=== PATIENT | male | born 1965 | race Caucasian/White ===

== ENCOUNTER 2019-01-01 14:53 | Inpatient (IN) | payer MEDICARE ==
[~2019-01-01] VITALS: Ht 167.6 cm; Wt 59.0 kg
--- NOTE | 2019-01-01 14:53 | NUR ---
[facility] S[facility] BY [facility] FOR ELEVATED CREATININE LEVEL, TO ER BED 4, HOOKED TO MONITOR, CHANGED TO [facility], AWAITING MD CALVO
--- NOTE | 2019-01-01 14:57 | NUR ---
DR ARRILOA AT BEDSIDE
[2019-01-01 15:29] LABS: BASOPHILS # (AUTO) 0.1 /CMM (0.0-0.2); BASOPHILS % (AUTO) 0.9 % (0.0-2.0); EOSINOPHILS % (AUTO) 2.7 % (0.0-6.0); HEMATOCRIT 33 % (39-51); HEMOGLOBIN 11.3 g/dL (13.5-17.5); LYMPHOCYTES # (AUTO) 2.1 /CMM (0.8-4.8); LYMPHOCYTES % (AUTO) 14.5 % (20.0-44.0); MEAN CORPUSCULAR HGB CONC 34 g/dl (31.0-36.0); MEAN CORPUSCULAR VOLUME 87 fL (80-96); MONOCYTES # (AUTO) 0.9 /CMM (0.1-1.30); MONOCYTES % (AUTO) 6.2 % (2.0-12.0); NEUTROPHILS # (AUTO) 11.2 /CMM (1.8-8.9); NEUTROPHILS % (AUTO) 75.7 % (43.0-81.0); PLATELET COUNT (AUTO) 497 /CMM (150-450); RED BLOOD CELL COUNT(AUTO) 3.83 MIL/uL (4.5-6.0); WHITE BLOOD COUNT (AUTO) 14.8 K/uL (4.3-11.0)
[2019-01-01] MEDS ORDERED: IV NS 0.9% 1,000 ML BAG IV ONE (15:30)
[2019-01-01 15:38] LABS: CALCIUM, SERUM 8.1 mg/dL (8.5-10.1); CREATININE 5.3 mg/dL (0.6-1.3); POTASSIUM 3.1 mmol/L (3.5-5.1)
[2019-01-01] MEDS ORDERED: ARIP10TA9 PO (15:38)
[2019-01-01] MEDS ORDERED: MAGN400O6 PO (15:38)
[2019-01-01] MEDS ORDERED: VANC1VIA IV (15:38)
[2019-01-01] MEDS ORDERED: CLON0.1T PO (15:38)
[2019-01-01] MEDS ORDERED: INSU100V27 SQ (15:38)
[2019-01-01] MEDS ORDERED: ASCO500T9 PO (15:38)
[2019-01-01] MEDS ORDERED: ONDA4TAB5 PO (15:38)
[2019-01-01] MEDS ORDERED: DIPH25CA6 PO (15:38)
[2019-01-01] MEDS ORDERED: CARV6.252 PO (15:38)
[2019-01-01] MEDS ORDERED: METF-440 PO (15:38)
[2019-01-01] MEDS ORDERED: NA P133E RC (15:38)
[2019-01-01] MEDS ORDERED: NITR0.4T48 SL (15:38)
[2019-01-01] MEDS ORDERED: ZINC220C8 PO (15:38)
[2019-01-01] MEDS ORDERED: ATOR40TA PO (15:38)
[2019-01-01] MEDS ORDERED: ACET-868 PO (15:38)
[2019-01-01] MEDS ORDERED: ASPI-1169 PO (15:38)
[2019-01-01] MEDS ORDERED: MELA3TAB PO (15:38)
[2019-01-01] MEDS ORDERED: PIPE3.377 IV (15:38)
[2019-01-01] MEDS ORDERED: BISA10SU8 RC (15:38)
[2019-01-01] MEDS ORDERED: HYDR-3974 PO (15:38)
[2019-01-01] MEDS ORDERED: CLOP75TA15 PO (15:38)
[2019-01-01] MEDS ORDERED: GLIP5TAB13 PO (15:38)
[2019-01-01 15:44] LABS: ALBUMIN 2.2 g/dL (3.4-5.0); BILIRUBIN,DIRECT 0.1 mg/dL (0.0-0.2); BILIRUBIN,TOTAL 0.5 mg/dL (0.2-1.0); TOTAL PROTEIN, SERUM 6.5 g/dL (6.4-8.2)
[2019-01-01] MEDS ORDERED: IV NS 0.9% 500 ML BAG IV ONE (16:00)
--- NOTE | 2019-01-01 16:00 | NUR ---
URINE SAMPLE SENT TO LAB
[2019-01-01 16:09] LABS: APPEARANCE,URINE Slightly Cloudy (CLEAR); BILIRUBIN,URINE Negative (NEGATIVE); BLOOD, URINE Small Ery/uL (NEGATIVE); COLOR,URINE Light yellow (YELLOW); KETONES,URINE Negative (NEGATIVE); LEUKOCYTE ESTERASE ,URINE Negative (NEGATIVE); NITRITE, URINE Negative (NEGATIVE); PH,URINE 5.5 (5.0-8.0); PROTEIN,URINE 30 mg/dl (NEGATIVE); UGLUCOSE Negative (NEGATIVE); UROBILINOGEN,URINE 0.2 EU/dL (0.2)
--- NOTE | 2019-01-01 16:22 | NUR ---
CALLED [facility], BRENDA KRISHNAN WAS PAGED.
[2019-01-01 16:25] LABS: BACTERIA,URINE Few /HPF (None Seen); SQUAMOUS EPITHELIAL CELL,UR Few /HPF (None Seen); URINE AMORPHOUS URATE Few /HPF (None Seen); WBC,URINE 0-2 /HPF (0-3)
--- NOTE | 2019-01-01 16:31 | NUR ---
CALLED NURSING SUP REQUESTED MED SURG BED FOR THIS PATIENT
--- NOTE | 2019-01-01 17:10 | NUR ---
ADMIT TO 312-1 DX RENAL FAILURE ACCEPTING BRENDA KRISHNAN DNP
--- NOTE | 2019-01-01 17:50 | NUR ---
REPORT GIVEN TO ASHLEE LAKE OF TELE UNIT
[2019-01-01] MEDS ORDERED: ZOLPIDEM TARTRATE 5 MG TABLET PO PRN (19:00)
[2019-01-01] MEDS ORDERED: ONDANSETRON HCL/PF 4 MG/2 ML VIAL IVP PRN (19:00)
[2019-01-01] MEDS ORDERED: Z GUARD REMEDY 2 OZ OINT TP PRN (19:00)
[2019-01-01 20:00] VITALS: BP_SYST 157; BP_SYST 159; BP_DIAS 89; BP_DIAS 97
--- NOTE | 2019-01-01 20:00 | NUR ---
RN Notes Admitted a 53 years old male patient from ER with primary diagnosis of Acute Renal failure. Patient is awake, alert and oriented x3, verbalizing pain on his left shoulder 3/10, per pain pain was due when he fell before. Denies nausea and vomiting. With O2 inhalation at 2LPM via nasal cannula and tolerated well. Right upper arm PICC line patent and intact. Skin assessment done wound care done with pictures taken and filed in the chart. Plan of care and Safety measures discussed with the patient and verbalized understanding. Kept comfortable and attended. Will continue to monitor patient.
[2019-01-01] MEDS ORDERED: FEE PK DOSING 1 MIN EA MC ONE ×2 (20:02)
[2019-01-01] MEDS: IV NS 0.9% 1,000 ML IV PRN (20:47)
[2019-01-01] MEDS ORDERED: PIPERACILLIN /TAZOBACTAM 2.25 G in IV D5W 50 ML IV SCH (21:00)
[2019-01-01] MEDS: ATORVASTATIN 40 MG TABLET PO SCH (21:57)
[2019-01-01] MEDS: HYDROCODONE/APAP 5/325MG 1 EACH TABLET PO PRN (21:58)
--- NOTE | 2019-01-01 21:58 | NUR ---
RN Notes Patient complains of pain on his left shoulder, 05/16. [place] 5/325 mg tab given PO and tolerated well. Will continue to monitor patient.
[2019-01-02] VITALS: BP 142/92
[2019-01-02] MEDS ORDERED: PIPERACILLIN /TAZOBACTAM 3.375 G VIAL IV SCH
[2019-01-02] MEDS: IV NS 0.9% 1,000 ML IV PRN (06:00)
--- NOTE | 2019-01-02 06:46 | NUR ---
RN Notes Patient asleep, on 2 lpm O2 via NC with good saturation. No signs of distress and discomfort noted. Tele monitor reads Sinus Rhythm with BBB. At 0408 NSR converted to Ventricular Rhythm for 1 min then back to NSR. Pain on left shoulder relieved with [place] and denies pain on the surgical incision on the right leg. Kept patient clean and dry. All needs attended with call light within reach. Will endorse to morning RN for continuity of care.
[2019-01-02 06:47] LABS: BASOPHILS # (AUTO) 0.1 /CMM (0.0-0.2); BASOPHILS % (AUTO) 0.5 % (0.0-2.0); HEMATOCRIT 34 % (39-51); HEMOGLOBIN 11.7 g/dL (13.5-17.5); LYMPHOCYTES # (AUTO) 2.3 /CMM (0.8-4.8); LYMPHOCYTES % (AUTO) 9.9 % (20.0-44.0); MEAN CORPUSCULAR HGB CONC 35 g/dl (31.0-36.0); MEAN CORPUSCULAR VOLUME 86 fL (80-96); MONOCYTES # (AUTO) 1.3 /CMM (0.1-1.30); MONOCYTES % (AUTO) 5.6 % (2.0-12.0); NEUTROPHILS # (AUTO) 19.1 /CMM (1.8-8.9); PLATELET COUNT (AUTO) 540 /CMM (150-450); RED BLOOD CELL COUNT(AUTO) 3.92 MIL/uL (4.5-6.0); WHITE BLOOD COUNT (AUTO) 23.2 K/uL (4.3-11.0)
[2019-01-02 06:52] LABS: THYROID STIMULATING HORMONE 1.101 uIU/mL (0.358-3.74)
[2019-01-02 06:58] LABS: ALBUMIN 2.1 g/dL (3.4-5.0); BILIRUBIN,TOTAL 0.7 mg/dL (0.2-1.0); CREATININE 4.8 mg/dL (0.6-1.3); MAGNESIUM 1.7 mg/dL (1.8-2.4); PHOSPHORUS 3.9 mg/dL (2.5-4.9); POTASSIUM 3.7 mmol/L (3.5-5.1); TOTAL PROTEIN, SERUM 6.5 g/dL (6.4-8.2)
[2019-01-02] MEDS: HYDROCODONE/APAP 5/325MG 1 EACH TABLET PO PRN ×3 (07:43→22:34)
--- NOTE | 2019-01-02 07:55 | NUR ---
RN OPENING NOTES Patient received on 2 L o2 nasal cannula, no sob or ventilatory distress noted. Patient received [place] for left shoulder pain, no other complaints otherwise. Patient is comfortable lying in his bed, call light within reach, safety measures in place.
--- NOTE | 2019-01-02 08:00 | NUR ---
RN NOTES BP noted at 181/97, IVF put on hold at this time. PRN BP medications to be administer.
--- NOTE | 2019-01-02 08:00 | NUR ---
WOUND CARE CONSULT WOUND CARE RECEIVED CONSULT FOR SACRAL REDNESS AND RIGHT GREAT TOE WOUND. WOUND CARE WILL DEFER CONSULT AND ALL TREATMENT PLANS TO PLASTIC SURGICAL TEAM INCLUDING DPM WHO HAVE BEEN NOTIFIED OF THIS CONSULT. PATIENT WITH FLORIN AT 15, ALL PRESSURE ULCER PREVENTION MEASURES ARE NOTED TO BE IN PLACE AT THIS TIME. WILL SEE PRN.
[2019-01-02] MEDS: ARIPIPRAZOLE 5 MG TABLET PO SCH (08:14)
[2019-01-02] MEDS: CARVEDILOL 6.25 MG TABLET PO SCH ×2 (08:14→17:00)
[2019-01-02] MEDS: ASPIRIN 81 MG TAB.CHEW PO SCH (08:14)
[2019-01-02] MEDS: CLOPIDOGREL BISULFATE 75 MG TABLET PO SCH (08:14)
[2019-01-02] MEDS: glipiZIDE 5 MG TABLET PO SCH ×2 (08:24→16:59)
[2019-01-02 08:40] VITALS: BP 181/97
[2019-01-02] MEDS ORDERED: VANCOMYCIN 1 GM VIAL IV SCH (09:00)
[2019-01-02] MEDS: CLONIDINE HCL 0.1 MG TABLET PO PRN (09:24)
[2019-01-02] MEDS: NYSTATIN/TRIAMCIN CREAM 15 GM TUBE TP SCH ×2 (11:30→22:34)
--- NOTE | 2019-01-02 12:47 | NUR ---
MSRN.WOUND CARE VERBAL ORDER FROM MD [place] AT BEDSIDE. RIGHT THIGH LISA AND RIGHT CALF LISA: ABDO PADS AND WRAP WITH KERLIX. RIGHT GREAT TOE AND PLATAR ASPECT: CLEAN WITH BETADINE, PROTECT WITH GAUZE AND WRAP WITH KERLIX. DAILY AND PRN FOR SOILING. WOUND CARE COMPLETED PER RX AND ORDER PLACED.
[2019-01-02 15:49] VITALS: BP 165/86
--- NOTE | 2019-01-02 18:53 | NUR ---
RN MS NOTES CLOSING NOTES Patient remains a/o x3, patient with 2 L o2 nasal cannula, no sob or respiratory distress noted. Patient denies pain, patient with PASHA picc line, intact and operational, with IVF per RX. Patient with dressing at RLE, clean, dry and intact. Patient's bed at lowest setting, locked. Hand rails x2, call light within reach. All day nursing duties completed. Will endorse to plant operator/shift supervisor RN at bedside for JOE.
--- NOTE | 2019-01-02 19:37 | NUR ---
msrn. tran arrived on floor, endorsed to night rn to administer.
--- NOTE | 2019-01-02 19:40 | NUR ---
MS/RN NOTES RECEIVED PT. LYING IN BED. PT. IS AWAKE, ALERT AND ORIENTED X3. BREATHING EVEN AND UNLABORED ON 2LPM O2 VIA NC. NO SOB, RESPIRATORY DISTRESS OR COMPLAINTS OF PAIN NOTED AT THIS TIME. PT. WITH PT. WITH RIGHT UPPER ARM PICC PRESENT, PATENT AND INTACT ADMINISTERING TO PT. NS @ 100ML/HR. BED LOCKED AND IN LOWEST POSITION, SIDE RAILS UP X3, BED ALARM ON, CALL LIGHT WITHIN REACH, WILL CONTINUE TO MONITOR.
[2019-01-02] MEDS: LINEZOLID RTU BAG 600 MG in PREMIX 1 EA IV SCH (19:57)
[2019-01-02 20:33] VITALS: BP 137/84
[2019-01-02] MEDS: PIPERACILLIN /TAZOBACTAM 3.375 G in IV D5W 100 ML IV SCH (20:42)
[2019-01-02] MEDS: ATORVASTATIN 40 MG TABLET PO SCH (22:33)
[2019-01-03 06:23] LABS: BASOPHILS # (AUTO) 0.1 /CMM (0.0-0.2); BASOPHILS % (AUTO) 0.7 % (0.0-2.0); EOSINOPHILS % (AUTO) 2.8 % (0.0-6.0); HEMATOCRIT 32 % (39-51); HEMOGLOBIN 10.8 g/dL (13.5-17.5); LYMPHOCYTES # (AUTO) 2.4 /CMM (0.8-4.8); LYMPHOCYTES % (AUTO) 13.3 % (20.0-44.0); MEAN CORPUSCULAR HGB CONC 34 g/dl (31.0-36.0); MEAN CORPUSCULAR VOLUME 86 fL (80-96); MONOCYTES # (AUTO) 1.4 /CMM (0.1-1.30); MONOCYTES % (AUTO) 7.6 % (2.0-12.0); NEUTROPHILS # (AUTO) 13.6 /CMM (1.8-8.9); NEUTROPHILS % (AUTO) 75.6 % (43.0-81.0); PLATELET COUNT (AUTO) 506 /CMM (150-450); RED BLOOD CELL COUNT(AUTO) 3.67 MIL/uL (4.5-6.0)
[2019-01-03 06:38] LABS: CALCIUM, SERUM 8.3 mg/dL (8.5-10.1); MAGNESIUM 1.7 mg/dL (1.8-2.4); PHOSPHORUS 4.2 mg/dL (2.5-4.9); POTASSIUM 3.3 mmol/L (3.5-5.1)
--- NOTE | 2019-01-03 06:49 | NUR ---
MS/RN NOTES PT. IS LYING IN BED RESTING, BREATHING EVEN AND UNLABORED ON 2LPM O2 VIA NC. NO SOB, RESPIRATORY DISTRESS OR COMPLAINTS OF PAIN NOTED AT THIS TIME. PT. WITH PT. WITH RIGHT UPPER ARM PICC PRESENT, PATENT AND INTACT ADMINISTERING TO PT. NS @ 100ML/HR. ALL PT. NEEDS MET. PT. OFFLOADED, TURNED AND REPOSITIONED Q2H AND NEEDED. BED LOCKED AND IN LOWEST POSITION, SIDE RAILS UP X3, BED ALARM ON, CALL LIGHT WITHIN REACH, WILL ENDORSE TO DAYSHIFT NURSE FOR CONTINUITY OF CARE.
[2019-01-03] MEDS: LINEZOLID RTU BAG 600 MG in PREMIX 1 EA IV SCH ×2 (06:59→19:04)
--- NOTE | 2019-01-03 07:40 | NUR ---
M/S RN OPENING NOTES PATIENT ON BED WITH HEAD OF BED ELEVATED, A/O 3 AND ABLE TO MAKE NEEDS KNOWN. RESPIRATION EVEN AND UNLABORED WITH NO ACUTE RESPIRATORY DISTRESS, ON OXYGEN AT 2LPM VIA NASAL CANNULA AND TOLERATED WELL. ABD SOFT AND NON DISTENDED WITH ACTIVE BOWEL SOUNDS. COMPLAIN OF PAIN WITH PAIN SCALE OF 5/10 AT LEFT SHOULDER WITH SWELLING NOTED. SKIN WARM TO TOUCH. IV LINE AT RIGHT UPPER ARM PICC LINE WITH NS RUNNING 100 ML/HR. ALL CONCERNS NOTED. PLACED CALL LIGHT WITHIN REACH TO ENSURE SAFETY. WILL CONTINUE TO EVALUATE CARE.
[2019-01-03 08:00] VITALS: BP 163/92
[2019-01-03] MEDS: CARVEDILOL 6.25 MG TABLET PO SCH ×2 (08:16→16:59)
[2019-01-03] MEDS: CLOPIDOGREL BISULFATE 75 MG TABLET PO SCH (08:17)
[2019-01-03] MEDS: ARIPIPRAZOLE 5 MG TABLET PO SCH (08:17)
[2019-01-03] MEDS: PIPERACILLIN /TAZOBACTAM 3.375 G in IV D5W 100 ML IV SCH ×2 (08:17→18:53)
[2019-01-03] MEDS: glipiZIDE 5 MG TABLET PO SCH ×2 (08:17→16:59)
[2019-01-03] MEDS: HYDROCODONE/APAP 5/325MG 1 EACH TABLET PO PRN ×2 (08:17→17:00)
[2019-01-03] MEDS: ASPIRIN 81 MG TAB.CHEW PO SCH (08:17)
[2019-01-03] MEDS ORDERED: VANCOMYCIN 1 GM in IV D5W 250 ML IV SCH (09:00)
[2019-01-03] MEDS: NYSTATIN/TRIAMCIN CREAM 15 GM TUBE TP SCH (11:36)
--- NOTE | 2019-01-03 13:20 | NUR ---
M/S RN RECEIVED AN ORDER FROM DR. JANNETH SINHA FOR MAGNESIUM (1.7) AND POTASSIUM (3.3) REPLACEMENT ONE TIME ONLY. ORDER READ BACK AND VERIFIED, NOTED AND CARRIED OUT. PATIENT NOTIFIED.
[2019-01-03] MEDS ORDERED: Magnesium 1GM/D5W 100ML PREMIX PIGGYBACK IV ONE (13:30)
[2019-01-03] MEDS ORDERED: POTASSIUM CHLORIDE 20 MEQ TAB.PRT.SR PO ONE (13:30)
[2019-01-03] MEDS ORDERED: MGSO4/D5W 100 ML IV ONE (13:30)
[2019-01-03] MEDS: IV NS 0.9% 1,000 ML IV PRN (13:51)
[2019-01-03 16:00] VITALS: BP 171/82
[2019-01-03] MEDS ORDERED: FUROSEMIDE 20 MG/2 ML VIAL IV STA (17:42)
--- NOTE | 2019-01-03 17:45 | NUR ---
MS/RN NOTE PATIENT COMPLAINS OF FEELING ANXIOUS. VITALS STABLE AND SATURATION AT 93% WITH RECEVING OXYGEN AT 3L/MIN VIA NASAL CANNUAL. DR KRISHNAN IS MADE AWARE AND NOTED RECEIVED ORDER OF ATIVAN 0.5 MG IV Q6HR PRN. WENT BACK TO THE PATIENT FOR CLOSER MONITORING AND NOTED PATIENT GETTING MORE ANXIOUS. AND SATURATION AT 90% WITH OXYGEN AT 3L/MIN VIA NASAL CANNULA. ASSESSED AND NOTED PATIENT DESATURATING AT 82% IN ROOM AIR AND PATIENT HAD BILATERAL ANTERIOR CRACKLES IN THE LUNGS. DR KRISHNAN WAS MADE AWARE AND NEW ORDER WERE RECEIVED. THE ORDER WERE READ BACK, VERIFIED. NOTED AND CARRIED OUT. WILL CONTINUE TO MONITOR THE PATIENT CLOSELY.
[2019-01-03] MEDS ORDERED: LORAZEPAM INJ 2 MG/ML VIAL IV PRN (18:00)
--- NOTE | 2019-01-03 18:43 | NUR ---
M/S RN CLOSING NOTES PATIENT A/O X4 AND ABLE TO MAKE NEEDS KNOWN. RESPIRATION EVEN AND UNLABORED , ON CONTINUOUS OXYGEN AT 4LPM VIA NASAL CANNULA AND ABLE TO TOLERATE WELL. ABDOMEN SOFT AND NON DISTENDED WITH ACTIVE BOWEL SOUNDS. PRESENCE OF CONDOM CATHETER WITH UO 200 ML. PATIENT DENIES PAIN AND DISCOMFORT AT THIS TIME. NORCO EFFECTIVE LAST DOSE GIVEN AT 1700. SKIN WARM TO TOUCH. IV SITE ON RIGHT UPPER ARM PICC LINE WITH S/SX OF INFILTRATION, HELD IV FLUID PER MD ORDER. ALL CONCERNS ATTENDED. PLACED CALL LIGHT WITHIN REACH FOR SAFETY. ENDORSED PATIENT CONDITION TO NEXT SHIFT.
--- NOTE | 2019-01-03 19:09 | NUR ---
M/S RN DR. BRENDA PATRICIA NOTIFIED WITH CHEST XRAY RESULT WITH NO GIVEN ORDER. WILL CONTINUE TO EVALUATE CARE.
[2019-01-03 20:00] VITALS: BP 127/68
--- NOTE | 2019-01-03 20:00 | NUR ---
MS RN NOTES RECEIVED PATIENT AWAKE IN BED WITH NO DISTRESS NOTED. CALL LIGHT WITHIN REACH. NO C/O PAIN OR DISCOMFORT. CENTRAL LINE INTACT AND PATENT. BED IN LOW LOCK SETTING. ROOM FREE OF CLUTTER AND BELONGINGS KEPT NEAR BEDSIDE. WILL CONTINUE TO MONITOR.
[2019-01-03] MEDS: ATORVASTATIN 40 MG TABLET PO SCH (22:06)
[2019-01-04] MEDS: NYSTATIN/TRIAMCIN CREAM 15 GM TUBE TP SCH ×3 (00:35→23:37)
[2019-01-04] MEDS: HYDROCODONE/APAP 5/325MG 1 EACH TABLET PO PRN ×4 (04:11→20:56)
[2019-01-04] MEDS: LINEZOLID RTU BAG 600 MG in PREMIX 1 EA IV SCH ×2 (05:42→17:34)
[2019-01-04 06:24] LABS: BASOPHILS # (AUTO) 0.1 /CMM (0.0-0.2); BASOPHILS % (AUTO) 0.5 % (0.0-2.0); EOSINOPHILS % (AUTO) 1.9 % (0.0-6.0); HEMATOCRIT 28 % (39-51); HEMOGLOBIN 9.6 g/dL (13.5-17.5); LYMPHOCYTES # (AUTO) 1.7 /CMM (0.8-4.8); LYMPHOCYTES % (AUTO) 10.9 % (20.0-44.0); MEAN CORPUSCULAR HGB CONC 34 g/dl (31.0-36.0); MEAN CORPUSCULAR VOLUME 86 fL (80-96); MONOCYTES # (AUTO) 1.3 /CMM (0.1-1.30); NEUTROPHILS # (AUTO) 12.5 /CMM (1.8-8.9); NEUTROPHILS % (AUTO) 78.7 % (43.0-81.0); PLATELET COUNT (AUTO) 430 /CMM (150-450); RED BLOOD CELL COUNT(AUTO) 3.29 MIL/uL (4.5-6.0); WHITE BLOOD COUNT (AUTO) 15.9 K/uL (4.3-11.0)
[2019-01-04 06:32] LABS: CALCIUM, SERUM 8.2 mg/dL (8.5-10.1); CREATININE 5.3 mg/dL (0.6-1.3); PHOSPHORUS 3.8 mg/dL (2.5-4.9)
--- NOTE | 2019-01-04 06:46 | NUR ---
MS RN NOTES PATIENT AWAKE IN BED WITH NO DISTRESS NOTED. CALL LIGHT WITHIN REACH. ALL DUE MEDS GIVEN ORDERED WITH NO ASE NOTED. NO C/O PAIN OR DISCOMFORT. CENTRAL LINE INTACT AND PATENT. CONDOM CATH INTACT, PATENT, AND DRAINED 300ML YELLOW CLEAR URINE PLUS X1 IN DIAPER D/T ACCIDENTALLY PULLED OUT BY PATIENT. CONDOM CATH REPLACED AND TOLERATED WELL. WOUND TREATMENT RENDERED AND TOLERATED WELL. NO ACTIVE BLEEDING NOTED. RIGHT FOOT WOUND CULTURE OBTAINED PER ORDER. BED ALARM ON AND FUNCTIONING PROPERLY. ROOM FREE OF CLUTTER AND BELONGINGS KEPT NEAR BEDSIDE. BED IN LOW LOCK SETTING. WILL ENDORSE TO ONCOMING SHIFT.
[2019-01-04 08:00] VITALS: BP_SYST 112; BP_DIAS 47; BP_DIAS 50
--- NOTE | 2019-01-04 08:00 | NUR ---
RN NOTES RECEIVED PATIENT IN THE BED AWAKE A/O X3 . PER PATIENT HEARING VOICES, BUT TELLING RANDOM THINGS. PATIENT DENIED SI/HI AT THIS TIME. MEDICATION ADMINISTERED PRESCRIBED, V/S STABLE. PATIENT ON O2-3.5 L, NO ACUTE RESPIRATORY DISTRESS, PATIENT HAS A CONDOM CATH, MONITORING INTAKE AND OUTPUT. PATIENT WAS COMPLAINING OF RIGHT SHOULDER PAIN, IV ACCESS ON RIGHT UPPER ARM INTACT, INFUSING ZOSYN 25 ML/HR INTACT. ASSIST PATIENT TURN AND REPOSTION Q 2 HR, KEEP HOB ELEVATED 35 DEGREE ALL THE TIME. CALL LIGHT WITHIN TO REACH, SAFETY PRECAUTION MAINTAINED ALL THE TIME.
[2019-01-04] MEDS: PIPERACILLIN /TAZOBACTAM 3.375 G in IV D5W 100 ML IV SCH ×2 (09:19→20:05)
[2019-01-04] MEDS: ARIPIPRAZOLE 5 MG TABLET PO SCH (09:20)
[2019-01-04] MEDS: CLOPIDOGREL BISULFATE 75 MG TABLET PO SCH (09:20)
--- NOTE | 2019-01-04 09:21 | NUR ---
RN NOTES ADMINISTERED NARCO 5/325 MG PO PRN FOR LEFT SHOULDER PAIN 04/15 PER PATIENT REQUEST, BP-112/50, P-83, CONTINUED MONITORING.
[2019-01-04] MEDS: CARVEDILOL 6.25 MG TABLET PO SCH ×2 (09:24→17:34)
[2019-01-04] MEDS: ASPIRIN 81 MG TAB.CHEW PO SCH (09:24)
[2019-01-04] MEDS: glipiZIDE 5 MG TABLET PO SCH ×2 (09:24→17:34)
[2019-01-04] MEDS: ALBUTEROL HALF STRENGTH 1.25 MG/3 ML VIAL.NEB NEB SCH ×3 (11:00→20:29)
[2019-01-04] MEDS: IPRATROPIUM NEB FS 0.5 MG/2.5 ML AMPUL.NEB NEB SCH ×3 (11:00→20:29)
[2019-01-04 12:09] LABS: ABG BASE EXCESS -3.9 mmol/L; ABG OXYGEN SATURATION 93.8 % (92.0-98.5); ABG PCO2 31.3 mmHg (35.0-45.0); ABG PH 7.419 (7.350-7.450); ABG PO2 75.6 mmHg (75.0-100.0); AaDO2 173.6 mmHg; COHb 0.3 % (0.5-1.5); MetHb 0.6 % (0.0-1.5); SITE, ABG Right Radial; VENT MODE, BG 5L NC
[2019-01-04] MEDS: POTASSIUM CL. PREMIX PERIPHER. 50 ML IV SCH ×2 (12:58→13:59)
--- NOTE | 2019-01-04 13:21 | NUR ---
RN NOTES PATIENT SIGN CONSENT FORM FOR DEBRIDEMENT ON RIGHT FOOT, AND POSSIBLE AMPUTATION, PER FOOT MD DAWKINS.
--- NOTE | 2019-01-04 14:06 | NUR ---
RN NOTES ADMINISTERED NARCO 5/325 MG PO PRN FOR GENERALIZED PAIN PER PATIENT REQUEST, V/S TAKEN BP 110/49, P-80, CONTINUED MONITORING.
[2019-01-04 16:00] VITALS: BP 137/86
--- NOTE | 2019-01-04 18:30 | NUR ---
RN NOTES PATIENT STABLE, ASSIST EATING, ADMINISTERED SCHEDULED MEDICATION, V/S STABLE. PATIENT ON O2-4.OL, NO ACUTE RESPIRATORY DISTRESS, KEEPING HOB 35 DEGREE ALL THE TIME, PATIENT REFUSED PAIN AT THIS TIME. CONDOM CATH INTACT. ASSIST TURN AND REPOSTION Q 2 HR, CALL LIGHT WITHIN TO REACH, SAFETY PRECAUTION MAINTAINED ALL THE TIME. ENDORSED ONCOMING NURSE FOR PLAN OF CARE.
--- NOTE | 2019-01-04 19:00 | NUR ---
MS RN OPENING NOTES Received patient awake on Clay's position on bed, with O2 inhalation via NC @ 2LPM saturating 96%. No SOB/respiratory distress noted. With family at bedside. Answered all inquiries with satisfaction. Kept bed low and locked, siderails up. Reinforced to family the importance of elevating HOB in relation to patient's breathing. Call light at bedside. Will continue to monitor accordingly.
[2019-01-04 20:00] VITALS: BP 152/89
[2019-01-04] MEDS: ATORVASTATIN 40 MG TABLET PO SCH (21:07)
--- NOTE | 2019-01-05 | NUR ---
MS RN NOTES Kept patient on NPO. Instructed at bedside to give no food or water in preparation for procedure this AM, patient and verbalized understanding.
[2019-01-05] MEDS: HYDROCODONE/APAP 5/325MG 1 EACH TABLET PO PRN ×2 (01:25→16:14)
[2019-01-05] MEDS: IPRATROPIUM NEB FS 0.5 MG/2.5 ML AMPUL.NEB NEB SCH ×4 (02:01→19:53)
[2019-01-05] MEDS: ALBUTEROL HALF STRENGTH 1.25 MG/3 ML VIAL.NEB NEB SCH ×4 (02:01→19:53)
[2019-01-05] MEDS: LINEZOLID RTU BAG 600 MG in PREMIX 1 EA IV SCH ×2 (05:18→18:35)
[2019-01-05] MEDS ORDERED: FENTANYL PF 100MCG/2ML AMPUL ONE (06:43)
[2019-01-05] MEDS ORDERED: MIDAZOLAM HCL 2 MG/2ML VIAL ONE (06:43)
[2019-01-05] MEDS ORDERED: METOCLOPRAMIDE HCL 10 MG/2 ML VIAL ONE (06:44)
[2019-01-05] MEDS ORDERED: ROCURONIUM BROMIDE 50 MG/5 ML ONE (06:44)
[2019-01-05] MEDS ORDERED: ANESTHESIA TRAY IN PYXIS 1 EA TRAY MC ONE (06:52)
[2019-01-05 07:04] LABS: CALCIUM, SERUM 8.2 mg/dL (8.5-10.1); CREATININE 5.4 mg/dL (0.6-1.3); PHOSPHORUS 4.4 mg/dL (2.5-4.9); POTASSIUM 3.1 mmol/L (3.5-5.1)
[2019-01-05] MEDS ORDERED: LIDOCAINE HCL/PF 1% 30 ML SDV ONE (07:04)
[2019-01-05] MEDS ORDERED: BUPIVACAINE MPF 0.5% W/EPI INJ 30 ML VIAL ONE (07:04)
[2019-01-05] MEDS ORDERED: BUPIVACAINE 0.5 % PF 150 MG/30 ML VIAL ONE (07:04)
--- NOTE | 2019-01-05 07:06 | NUR ---
MS RN CLOSING NOTES Patient awake at this time, on O2 inhalation via NC. No SOB/respiratory distress noted. With at bedside. No new complaints made. All due meds given as ordered. Picked up by OR staff by bed for procedure at this time. Patient noted comfortably on bed. Report given to the next shift.
[2019-01-05 07:10] LABS: BASOPHILS # (AUTO) 0.1 /CMM (0.0-0.2); BASOPHILS % (AUTO) 0.6 % (0.0-2.0); EOSINOPHILS % (AUTO) 4.3 % (0.0-6.0); HEMATOCRIT 26 % (39-51); LYMPHOCYTES # (AUTO) 2.3 /CMM (0.8-4.8); LYMPHOCYTES % (AUTO) 17.5 % (20.0-44.0); MEAN CORPUSCULAR HGB CONC 35 g/dl (31.0-36.0); MEAN CORPUSCULAR VOLUME 85 fL (80-96); MONOCYTES # (AUTO) 1.1 /CMM (0.1-1.30); MONOCYTES % (AUTO) 8.6 % (2.0-12.0); NEUTROPHILS # (AUTO) 9.1 /CMM (1.8-8.9); PLATELET COUNT (AUTO) 375 /CMM (150-450); RED BLOOD CELL COUNT(AUTO) 3.04 MIL/uL (4.5-6.0); WHITE BLOOD COUNT (AUTO) 13.2 K/uL (4.3-11.0)
--- NOTE | 2019-01-05 07:19 | NUR ---
PT WENT TO SURGERY, NOT IN ROOM. RN IS AWARE.
[2019-01-05 08:25] VITALS: BP 154/90
[2019-01-05 08:30] VITALS: BP 154/90
--- NOTE | 2019-01-05 08:30 | NUR ---
RN NOTES PATIENT BACK FROM SURGERY BECAUSE OF DESATURATION, AND ELEVATED BP, PER Dr HITCHCOCK STOP SURGERY. PATIENT ON O2-4.0 L NC, SEED BY Dr MARCANO, AND DR CRUZ, AND BRENDA KRISHNAN. STARTED BUMEX IV INFUSION ON 10ML/HR INTACT ON RIGHT UA PICC LINE. NEEDS ATTENDED AND ANTICIPATED, SCHEDULED MEDICATION ADMINISTERED. PATIENT EATING WITH ASSIST OF . CALL LIGHT WITHIN TO REACH, NEEDS ATTENDED AND ANTICIPATED, CONTINUED MONITORING.
[2019-01-05] MEDS: CLOPIDOGREL BISULFATE 75 MG TABLET PO SCH (09:06)
[2019-01-05] MEDS: ASPIRIN 81 MG TAB.CHEW PO SCH (09:07)
[2019-01-05] MEDS: glipiZIDE 5 MG TABLET PO SCH (09:07)
[2019-01-05] MEDS: ARIPIPRAZOLE 5 MG TABLET PO SCH (09:07)
[2019-01-05] MEDS: CARVEDILOL 6.25 MG TABLET PO SCH ×2 (09:07→16:15)
[2019-01-05] MEDS: PIPERACILLIN /TAZOBACTAM 3.375 G in IV D5W 100 ML IV SCH ×2 (09:12→19:51)
[2019-01-05] MEDS ORDERED: BUMETANIDE INJ 6 MG in IV NS 0.9% 36 ML IV ONE (10:30)
--- NOTE | 2019-01-05 12:00 | NUR ---
RN NOTES PATIENT IN THE BED REFUSED PAIN AT THIS TIME, SCHEDULED MEDICATION ADMINISTERED, CONTINUED MONITORING.
[2019-01-05] MEDS: NYSTATIN/TRIAMCIN CREAM 15 GM TUBE TP SCH (12:12)
[2019-01-05] MEDS ORDERED: DEXTROSE 50%-WATER 50 ML DISP.SYRIN IV PRN (13:30)
[2019-01-05] MEDS ORDERED: POTASSIUM CHLORIDE 20 MEQ TAB.PRT.SR PO ONE ×2 (14:00→16:30)
[2019-01-05 16:01] VITALS: BP 165/92
--- NOTE | 2019-01-05 16:14 | NUR ---
RN NOTES ADMINISTERED NARCO 5/325 MG PO PRN FOR GENERALIZED PAIN 03/16 AT THIS TIME PER PATIENT REQUEST. ALSO PUT FERNANDEZ CATH ON SIZE 16 INTACT. SCHEDULED MEDICATION ADMINISTERED, V/S TAKEN AND MONITORING. BS-183 MG/DL. CALL LIGHT WITHIN TO REACH. ALWAYS KEEP HOB ELEVATED 35 DEGREE FOR SOB, CALL LIGHT WITHIN TO REACH. FAMILY NEXT TO THE BED. CONTINUED MONITORING.
[2019-01-05] MEDS: BLOOD SUGAR DIAGNOSTIC 1 EACH STRIP VI SCH ×2 (16:15→21:14)
--- NOTE | 2019-01-05 18:30 | NUR ---
RN NOTES BS-183 MG/DL COVERAGE GIVEN, ALSO ADMINISTERED SCHEDULED MEDICATION, V/S STABLE, MEDICATION WERE ADMINISTERED FOR PAIN EFFECTIVE, F/C DRAIN LIGHT YELLOW OUTPUT. CALL LIGHT WITHIN TO REACH. INFUSING LINEZOLID 150ML/HR INTACT. ENDORSED ONCOMING NURSE FOR PLAN 0F CARE.
[2019-01-05] MEDS: INSULIN REGULAR, HUMAN 100 UNIT/ML 3 ML VIAL SQ PRN (18:36)
--- NOTE | 2019-01-05 19:37 | NUR ---
MS RN NOTE RECEIVED PT IN STABLE CONDITION. A&O X3. PT IS ON O2 4LPM VIA NC, TOLERATING WELL. FERNANDEZ CATH PATENT AND INTACT WITH ADEQUATE URINE DRAINING. PASHA PICC LINE PATENT. NO SIGNS OF SOB OR DISTRESS NOTED. ALL CURRENT NEEDS ATTENDED TO. SAFETY PRECAUTIONS IN PLACE: BED LOW, LOCKED, UPPER RAILS UP, AND CALL LIGHT WITHIN REACH. WILL CONT TO MONITOR.
[2019-01-05 20:00] VITALS: BP_SYST 141; BP_DIAS 81; BP_DIAS 84
[2019-01-05] MEDS: ATORVASTATIN 40 MG TABLET PO SCH (21:14)
[2019-01-05] MEDS: INSULIN GLARGINE, 100 UNIT/ML CARTRIDGE SQ SCH (21:22)
[2019-01-05] MEDS: *INSULIN REGULAR(HUMULIN R)HUM 100 UNIT/ML VIAL SQ PRN (21:23)
[2019-01-06] MEDS: NYSTATIN/TRIAMCIN CREAM 15 GM TUBE TP SCH ×2 (00:37→11:53)
[2019-01-06] MEDS: HYDROCODONE/APAP 5/325MG 1 EACH TABLET PO PRN ×4 (01:12→21:36)
--- NOTE | 2019-01-06 01:12 | NUR ---
MS RN NOTE PRN NORCO 5-325MG GIVEN FOR PAIN 8/10 LOCATED ON THE R HIP AREA STATED BY PT. WILL CONT TO MONITOR.
[2019-01-06] MEDS: ALBUTEROL HALF STRENGTH 1.25 MG/3 ML VIAL.NEB NEB SCH ×4 (01:31→19:59)
[2019-01-06] MEDS: IPRATROPIUM NEB FS 0.5 MG/2.5 ML AMPUL.NEB NEB SCH ×4 (01:31→19:59)
--- NOTE | 2019-01-06 02:12 | NUR ---
MS RN NOTE PAIN REASSESSED. PT IS EASILY AROUSED, WITH VERBALIZATION OF PAIN SUBSIDED TO 0/10. WILL CONT TO MONITOR.
[2019-01-06] MEDS: LINEZOLID RTU BAG 600 MG in PREMIX 1 EA IV SCH ×2 (05:00→17:52)
[2019-01-06 06:28] LABS: BASOPHILS # (AUTO) 0.1 /CMM (0.0-0.2); BASOPHILS % (AUTO) 0.4 % (0.0-2.0); HEMATOCRIT 29 % (39-51); HEMOGLOBIN 9.9 g/dL (13.5-17.5); LYMPHOCYTES # (AUTO) 2.1 /CMM (0.8-4.8); LYMPHOCYTES % (AUTO) 16.7 % (20.0-44.0); MEAN CORPUSCULAR HGB CONC 34 g/dl (31.0-36.0); MEAN CORPUSCULAR VOLUME 87 fL (80-96); NEUTROPHILS # (AUTO) 8.7 /CMM (1.8-8.9); NEUTROPHILS % (AUTO) 69.9 % (43.0-81.0); PLATELET COUNT (AUTO) 421 /CMM (150-450); RED BLOOD CELL COUNT(AUTO) 3.38 MIL/uL (4.5-6.0); WHITE BLOOD COUNT (AUTO) 12.4 K/uL (4.3-11.0)
[2019-01-06] MEDS: INSULIN REGULAR, HUMAN 100 UNIT/ML 3 ML VIAL SQ PRN ×3 (06:31→21:26)
[2019-01-06] MEDS: BLOOD SUGAR DIAGNOSTIC 1 EACH STRIP VI SCH ×4 (06:33→21:14)
[2019-01-06 06:42] LABS: CALCIUM, SERUM 8.7 mg/dL (8.5-10.1); CREATININE 6.2 mg/dL (0.6-1.3); PHOSPHORUS 4.6 mg/dL (2.5-4.9); POTASSIUM 3.8 mmol/L (3.5-5.1)
--- NOTE | 2019-01-06 06:46 | NUR ---
MS RN NOTE PT IN STABLE CONDITION. A&O X3. PT IS ON O2 4LPM VIA NC, TOLERATING WELL. FERNANDEZ CATH PATENT AND INTACT WITH ADEQUATE URINE DRAINING. PASHA PICC LINE PATENT. NO SIGNS OF SOB OR DISTRESS NOTED. ALL CURRENT NEEDS ATTENDED TO. SAFETY PRECAUTIONS IN PLACE: BED LOW, LOCKED, UPPER RAILS UP, AND CALL LIGHT WITHIN REACH. WILL CONT TO MONITOR AND ENDORSE TO NEXT SHIFT FOR JOE.
[2019-01-06 08:00] VITALS: BP 162/80
--- NOTE | 2019-01-06 08:00 | NUR ---
MS RN NOTE RECEIVED PT IN STABLE CONDITION. A&O X3. PT IS ON O2 4LPM VIA NC, TOLERATING WELL. O2 SAT 97%FERNANDEZ CATH PATENT AND INTACT WITH ADEQUATE YELLOW URINE DRAINING. PASHA PICC LINE PATENT. NO SIGNS OF SOB OR DISTRESS NOTED.NEEDS ATTENDED TO. SAFETY PRECAUTIONS IN PLACE: BED LOW, LOCKED, UPPER RAILS UP, AND CALL LIGHT WITHIN REACH. WILL CONT TO MONITOR.
[2019-01-06] MEDS: PIPERACILLIN /TAZOBACTAM 3.375 G in IV D5W 100 ML IV SCH ×2 (09:15→19:44)
[2019-01-06] MEDS: CARVEDILOL 6.25 MG TABLET PO SCH ×2 (09:16→17:37)
[2019-01-06] MEDS: ARIPIPRAZOLE 5 MG TABLET PO SCH (09:16)
[2019-01-06] MEDS: CLOPIDOGREL BISULFATE 75 MG TABLET PO SCH (09:16)
[2019-01-06] MEDS: ASPIRIN 81 MG TAB.CHEW PO SCH (09:16)
[2019-01-06] MEDS: CLONIDINE HCL 0.1 MG TABLET PO PRN (10:38)
--- NOTE | 2019-01-06 13:50 | NUR ---
EVE met with PROGRAM COUNSELOR Sita who informed SW that pt. and family are requesting an Advance Directive. Pt. is Lebanese speaking. SW attempted to meet with the pt. however, pt. was having an HD catheter placed. EVE gave Advance Directive form in Lebanese to pt's RN Fabi and informed her to give it to the pt. or pt's family when they are here at [facility].
--- NOTE | 2019-01-06 14:00 | NUR ---
DR KRISHNAN PLACED HD CATH IN PT'S LT GROIN TODAY-CONSENT HAS BEEN SIGNED.PT TOLERATED WELL.DENIES ANY DISCOMFORT.
[2019-01-06 16:00] VITALS: BP 148/86
--- NOTE | 2019-01-06 18:42 | NUR ---
GAVE ADVANCE DIRECTIVE COPY TO THE FAMILY.PT RESTING IN BED LISTENING TO PERUVIAN MUSIC.DENIES ANY PAIN OR DISTRESS.CALL LIGHT PLACED WITHIN REACH.
--- NOTE | 2019-01-06 19:15 | NUR ---
MS RN OPENING NOTES Received patient A/O x3, on Clay's position on bed with O2 inhalation @ 2LPM, saturating well @ 98%. With indwelling catheter, patent with clear yellow urine output noted. With IVF infusing well as ordered. Kept bed low and locked. Kept HOB elevated at least 35 degree at all times. Call light within easy reach. Will continue to monitor accordingly.
[2019-01-06 20:00] VITALS: BP 163/88
[2019-01-06 20:23] VITALS: BP 163/88
[2019-01-06] MEDS: ATORVASTATIN 40 MG TABLET PO SCH (21:14)
[2019-01-06] MEDS: INSULIN GLARGINE, 100 UNIT/ML CARTRIDGE SQ SCH (21:24)
[2019-01-07] MEDS: NYSTATIN/TRIAMCIN CREAM 15 GM TUBE TP SCH ×3 (00:20→23:52)
[2019-01-07] MEDS: IPRATROPIUM NEB FS 0.5 MG/2.5 ML AMPUL.NEB NEB SCH ×4 (01:58→19:58)
[2019-01-07] MEDS: ALBUTEROL HALF STRENGTH 1.25 MG/3 ML VIAL.NEB NEB SCH ×4 (01:58→19:58)
--- NOTE | 2019-01-07 03:00 | NUR ---
MS RN NOTES Per patient request, brother is okay to visit at this time due to the visitor's work and travel condition.
[2019-01-07] MEDS: HYDROCODONE/APAP 5/325MG 1 EACH TABLET PO PRN ×3 (04:13→21:43)
[2019-01-07] MEDS: LINEZOLID RTU BAG 600 MG in PREMIX 1 EA IV SCH ×2 (05:41→18:26)
--- NOTE | 2019-01-07 06:27 | NUR ---
MS RN CLOSING NOTES Patient noted pinkish urine via indwelling catheter. Noted black/bloody scanty stool x2. With episodes of desaturation 87% the lowest, managed with breathing treatment and reposition to High Clay's position with O2 inhalation @ 2LPM as ordered. Medicated for pain as ordered. Turned and repositioned Q2H, with decreased redness on sacrum noted. Kept bed low and locked, call light within easy reach. Advanced directives not yet returned by the family. Endorsed to the next shift.
[2019-01-07] MEDS: BLOOD SUGAR DIAGNOSTIC 1 EACH STRIP VI SCH ×4 (06:41→21:42)
[2019-01-07 06:45] LABS: CALCIUM, SERUM 8.4 mg/dL (8.5-10.1); CREATININE 6.5 mg/dL (0.6-1.3); PHOSPHORUS 5.3 mg/dL (2.5-4.9); POTASSIUM 3.2 mmol/L (3.5-5.1)
[2019-01-07 06:59] LABS: BASOPHILS # (AUTO) 0.1 /CMM (0.0-0.2); BASOPHILS % (AUTO) 0.8 % (0.0-2.0); EOSINOPHILS % (AUTO) 4.8 % (0.0-6.0); HEMATOCRIT 29 % (39-51); HEMOGLOBIN 9.8 g/dL (13.5-17.5); LYMPHOCYTES # (AUTO) 1.7 /CMM (0.8-4.8); LYMPHOCYTES % (AUTO) 13.3 % (20.0-44.0); MEAN CORPUSCULAR HGB CONC 35 g/dl (31.0-36.0); MEAN CORPUSCULAR VOLUME 88 fL (80-96); MONOCYTES # (AUTO) 0.8 /CMM (0.1-1.30); MONOCYTES % (AUTO) 6.5 % (2.0-12.0); NEUTROPHILS # (AUTO) 9.3 /CMM (1.8-8.9); NEUTROPHILS % (AUTO) 74.6 % (43.0-81.0); PLATELET COUNT (AUTO) 390 /CMM (150-450); RED BLOOD CELL COUNT(AUTO) 3.26 MIL/uL (4.5-6.0); WHITE BLOOD COUNT (AUTO) 12.5 K/uL (4.3-11.0)
--- NOTE | 2019-01-07 07:30 | NUR ---
RECEIVED PT. IN AM ALERT AND ORIENTED X3.LIFE SKILLS TEACHER KAYLI PEREZ
[2019-01-07 08:00] VITALS: BP 149/86
[2019-01-07] MEDS: PIPERACILLIN /TAZOBACTAM 3.375 G in IV D5W 100 ML IV SCH (08:33)
[2019-01-07] MEDS: POTASSIUM CHLORIDE 20 MEQ TAB.PRT.SR PO SCH ×2 (10:21→12:02)
[2019-01-07] MEDS: ASPIRIN 81 MG TAB.CHEW PO SCH (10:21)
[2019-01-07] MEDS: ARIPIPRAZOLE 5 MG TABLET PO SCH (10:21)
[2019-01-07] MEDS: CLOPIDOGREL BISULFATE 75 MG TABLET PO SCH (10:22)
[2019-01-07] MEDS: CARVEDILOL 6.25 MG TABLET PO SCH ×2 (12:01→18:25)
[2019-01-07] MEDS ORDERED: CEFEPIME 2 GM in IV NS 0.9% 50 ML IV SCH (13:00)
--- NOTE | 2019-01-07 13:23 | NUR ---
lunch time insulin held-ate 50% of lunch.
[2019-01-07] MEDS: PIPERACILLIN /TAZOBACTAM 2.25 G in IV D5W 50 ML IV SCH ×2 (14:38→21:04)
--- NOTE | 2019-01-07 15:00 | NUR ---
ONE HR. OR SO AFTER DIALYSIS NOTED SMALL AMT. OF BLOOD BENEATH FEMORAL DIALYSIS CATH.JOURNEYMAN TOOL AND DIE MAKER CARA CALLED SEVERAL TIMES AND RESPONDED THAT WE COULD PUT PRESSURE DRESSING ON AND HE WOULD SEE PT. TOMORROW.RN PUT DRSG IN PLACE. TO MONITOR CLOSELY.VS STABLE.
[2019-01-07 16:00] VITALS: BP 143/86
--- NOTE | 2019-01-07 17:00 | NUR ---
STOOL SENT FOR OCCULT BLOOD,RESP. TX INFORMED TO NEED FOR SPUTUM CULTURE,ONLY PRODUCED SALIVA SAMPLE SO FAR.
[2019-01-07 17:28] LABS: OCCULT BLOOD STOOL POSITIVE (NEGATIVE)
--- NOTE | 2019-01-07 18:00 | NUR ---
POTASSIUM REPLACEMENT GIVEN.
[2019-01-07] MEDS: *INSULIN REGULAR(HUMULIN R)HUM 100 UNIT/ML VIAL SQ PRN ×2 (18:18→21:56)
--- NOTE | 2019-01-07 18:50 | NUR ---
NO APPARENT FURTHER DRAINAGE AT DIALYSIS CATH SITE.
--- NOTE | 2019-01-07 19:30 | NUR ---
RECEIVED PATIENT IN BED ASLEEP, EASILY AROUSABLE. AO X 2-3, WITH PERIODS OF FORGETFULNESS; ABLE TO MAKE NEEDS KNOWN. NO ACUTE DISTRESS NOTED. NO SIGNS OF PAIN NOTED. NO SYMPTOMS OF HYPER/HYPOGLYCEMIA NOTED. IV SITE PATENT, INTACT; FLUSHED. LEFT FEMORAL HD CATH INTACT; NO SIGNS OF BLEEDING NOTED. FERNANDEZ CATH PATENT, INTACT; DRAINING CLEAR YELLOW URINE. RLE DRESSING INTACT. SAFETY REMINDERS GIVEN. ON LOW BED WITH BILATERAL UPPER SIDE RAILS UP. CALL FLOOD WITHIN EASY REACH. WILL CONTINUE TO MONITOR.
[2019-01-07 20:00] VITALS: BP 117/77
[2019-01-07] MEDS: ATORVASTATIN 40 MG TABLET PO SCH (21:04)
[2019-01-07] MEDS: INSULIN GLARGINE, 100 UNIT/ML CARTRIDGE SQ SCH (21:42)
--- NOTE | 2019-01-07 21:56 | NUR ---
BS 154. LANTUS 5 UNITS GIVEN. PATIENT WAS ONLY ABLE TO EAT A LITTLE SNACK. REGULAR INSULIN NOT GIVEN. PATIENT AWARE, AGREEABLE. WILL CONTINUE TO MONITOR.
--- NOTE | 2019-01-07 23:32 | NUR ---
DR. BEACH MADE AWARE THAT PATIENT IS ASKING FOR A SLEEP AID WITH NEW ORDER FOR AMBIEN 5 MG PO HS PRN; NOTED AND CARRIED OUT.
[2019-01-08] MEDS: ZOLPIDEM TARTRATE 5 MG TABLET PO PRN ×2 (00:41→21:17)
[2019-01-08] MEDS: IPRATROPIUM NEB FS 0.5 MG/2.5 ML AMPUL.NEB NEB SCH ×4 (01:45→20:11)
[2019-01-08] MEDS: ALBUTEROL HALF STRENGTH 1.25 MG/3 ML VIAL.NEB NEB SCH ×4 (01:45→20:11)
[2019-01-08] MEDS: PIPERACILLIN /TAZOBACTAM 2.25 G in IV D5W 50 ML IV SCH ×3 (05:15→20:37)
[2019-01-08] MEDS: HYDROCODONE/APAP 5/325MG 1 EACH TABLET PO PRN ×3 (05:15→21:17)
[2019-01-08] MEDS: LINEZOLID RTU BAG 600 MG in PREMIX 1 EA IV SCH (06:13)
--- NOTE | 2019-01-08 06:30 | NUR ---
PATIENT ASLEEP, EASILY AROUSABLE. RESPIRATIONS EVEN. NO SIGNS OF PAIN NOTED. DUE MEDS GIVEN WITH NO ASE NOTED. NEEDS ATTENDED. KEPT CLEAN, DRY, AND COMFORTABLE. SAFETY PRECAUTIONS AND COMFORT MEASURES IN PLACE. WILL GIVE REPORT TO DAY SHIFT FOR CONTINUITY OF CARE.
[2019-01-08 06:36] LABS: BASOPHILS # (AUTO) 0.1 /CMM (0.0-0.2); BASOPHILS % (AUTO) 0.5 % (0.0-2.0); EOSINOPHILS % (AUTO) 6.2 % (0.0-6.0); HEMATOCRIT 26 % (39-51); HEMOGLOBIN 8.9 g/dL (13.5-17.5); LYMPHOCYTES # (AUTO) 2.1 /CMM (0.8-4.8); LYMPHOCYTES % (AUTO) 19.9 % (20.0-44.0); MEAN CORPUSCULAR HGB CONC 35 g/dl (31.0-36.0); MEAN CORPUSCULAR VOLUME 86 fL (80-96); MONOCYTES # (AUTO) 0.8 /CMM (0.1-1.30); MONOCYTES % (AUTO) 7.3 % (2.0-12.0); NEUTROPHILS % (AUTO) 66.1 % (43.0-81.0); PLATELET COUNT (AUTO) 316 /CMM (150-450); RED BLOOD CELL COUNT(AUTO) 2.98 MIL/uL (4.5-6.0); WHITE BLOOD COUNT (AUTO) 10.6 K/uL (4.3-11.0)
[2019-01-08] MEDS: BLOOD SUGAR DIAGNOSTIC 1 EACH STRIP VI SCH ×4 (06:39→21:08)
[2019-01-08 07:05] LABS: CALCIUM, SERUM 8.3 mg/dL (8.5-10.1); CREATININE 6.8 mg/dL (0.6-1.3); MAGNESIUM 1.9 mg/dL (1.8-2.4); POTASSIUM 3.6 mmol/L (3.5-5.1)
--- NOTE | 2019-01-08 07:30 | NUR ---
RN MS NOTES PT IN BED, ASLEEP, EASILY AROUSABLE, RESPIRATIONS NORMAL, NO SIGN OF PAIN OR DISTRESS, CALL LIGHT WITHIN REACH, ASSISTED WITH NEEDS, KEPT WARM AND COMFORTABLE IN BED.
[2019-01-08 08:00] VITALS: BP 128/77
[2019-01-08] MEDS: ARIPIPRAZOLE 5 MG TABLET PO SCH (09:10)
[2019-01-08] MEDS: CARVEDILOL 6.25 MG TABLET PO SCH ×2 (09:10→17:12)
[2019-01-08] MEDS: ASPIRIN 81 MG TAB.CHEW PO SCH (09:10)
[2019-01-08] MEDS: CLOPIDOGREL BISULFATE 75 MG TABLET PO SCH (09:10)
[2019-01-08] MEDS: NYSTATIN/TRIAMCIN CREAM 15 GM TUBE TP SCH (12:19)
[2019-01-08] MEDS: INSULIN REGULAR, HUMAN 100 UNIT/ML 3 ML VIAL SQ PRN ×2 (12:21→17:18)
--- NOTE | 2019-01-08 13:00 | NUR ---
RN MS NOTES PT IN BED, ASLEEP, EASY TO AROUSE, ALERT AND VERBALLY RESPONSIVE, ASSISTED WITH MEALS, DUE MEDS GIVEN ORDERED, F/C DRAINING WELL, TURNED AND REPOSITIONED Q2 HOURS, SKIN TREATMENT DONE ORDERED, KEPT CLEAN AND COMFORTABLE.
[2019-01-08 16:00] VITALS: BP 157/87
--- NOTE | 2019-01-08 18:24 | NUR ---
RN MS NOTES PT IN BED, AWAKE, ALERT, VERBALLY RESPONSIVE, NOT IN DISTRESS, PAIN MEDICATION GIVEN FOR PAIN MANAGEMENT, ASSISTED WITH MEALS, DUE MEDS GIVEN ORDERED, PM CARE PROVIDED, ALL NEEDS ATTENDED.
[2019-01-08 20:00] VITALS: BP 141/82
[2019-01-08] MEDS: LINEZOLID 600 MG TABLET PO SCH (20:41)
[2019-01-08] MEDS: INSULIN GLARGINE, 100 UNIT/ML CARTRIDGE SQ SCH (21:08)
[2019-01-08] MEDS: ATORVASTATIN 40 MG TABLET PO SCH (21:08)
[2019-01-08] MEDS: ALBUTEROL FS 2.5 MG/3 ML VIAL.NEB NEB PRN (22:53)
--- NOTE | 2019-01-09 | NUR ---
MS RN NOTES AWAKE & RESPONSIVE. NOT IN ANY DISTRESS. NO SOB NOTED. DENIES ANY PAIN OR DISCOMFORT AT THIS TIME. WITH IV-HL PATENT & INTACT. MONITORED ACCORDINGLY. CALL LIGHT WITHIN REACH. BED IN LOWEST POSITION. SR UP X 3 WITH BED ALARM ON FOR SAFETY. REPORT GIVEN TO RVI RN FOR CONTINUITY OF CARE.
[2019-01-09] MEDS: NYSTATIN/TRIAMCIN CREAM 15 GM TUBE TP SCH ×3 (00:04→22:36)
--- NOTE | 2019-01-09 00:30 | NUR ---
PATIENT ASLEEP; NO SIGNS OF PAIN. NO ACUTE DISTRESS NOTED. WILL CONTINUE TO MONITOR.
[2019-01-09] MEDS: IPRATROPIUM NEB FS 0.5 MG/2.5 ML AMPUL.NEB NEB SCH ×4 (00:43→19:51)
[2019-01-09] MEDS: ALBUTEROL HALF STRENGTH 1.25 MG/3 ML VIAL.NEB NEB SCH ×4 (00:43→19:51)
[2019-01-09] MEDS: PIPERACILLIN /TAZOBACTAM 2.25 G in IV D5W 50 ML IV SCH ×3 (05:10→22:12)
[2019-01-09] MEDS: BLOOD SUGAR DIAGNOSTIC 1 EACH STRIP VI SCH ×4 (06:42→22:12)
[2019-01-09 06:53] LABS: BASOPHILS # (AUTO) 0.1 /CMM (0.0-0.2); BASOPHILS % (AUTO) 0.7 % (0.0-2.0); EOSINOPHILS % (AUTO) 5.7 % (0.0-6.0); HEMATOCRIT 26 % (39-51); HEMOGLOBIN 9.2 g/dL (13.5-17.5); LYMPHOCYTES # (AUTO) 1.8 /CMM (0.8-4.8); LYMPHOCYTES % (AUTO) 16.2 % (20.0-44.0); MEAN CORPUSCULAR HGB CONC 35 g/dl (31.0-36.0); MEAN CORPUSCULAR VOLUME 86 fL (80-96); MONOCYTES # (AUTO) 0.6 /CMM (0.1-1.30); NEUTROPHILS # (AUTO) 7.8 /CMM (1.8-8.9); NEUTROPHILS % (AUTO) 71.4 % (43.0-81.0); PLATELET COUNT (AUTO) 311 /CMM (150-450); RED BLOOD CELL COUNT(AUTO) 3.01 MIL/uL (4.5-6.0); WHITE BLOOD COUNT (AUTO) 10.9 K/uL (4.3-11.0)
[2019-01-09 07:20] LABS: CALCIUM, SERUM 8.8 mg/dL (8.5-10.1); CREATININE 7.2 mg/dL (0.6-1.3); POTASSIUM 3.6 mmol/L (3.5-5.1)
--- NOTE | 2019-01-09 07:46 | NUR ---
RN OPENING NOTE PT WAS RECEIVED IN BED AT LOWEST AND LOCKED POSITION WITH SIDE RAILS UP X2, A/O X3 FORGETFUL, BREATHING EVEN AND UNLABORED WITH NO S/S OF PAIN OR DISTRESS NOTED, NOTED TO HAVE FERNANDEZ IN PLACE, PT A PASHA PICC LINE AND LEFT FEMORAL HD CATH, NOTED TO HAVE LEFT SIDED WEAKNESS AND RIGHT LEG SURGICAL INCISIONS, POSSIBLE HD TODAY, SAFETY PRECAUTIONS IN PLACE, CALL LIGHT WITHIN REACH, WILL MONITOR ACCORDINGLY.
[2019-01-09 08:00] VITALS: BP 151/103
[2019-01-09] MEDS: ASPIRIN 81 MG TAB.CHEW PO SCH (08:24)
[2019-01-09] MEDS: ARIPIPRAZOLE 5 MG TABLET PO SCH (08:24)
[2019-01-09] MEDS: LINEZOLID 600 MG TABLET PO SCH (08:24)
[2019-01-09] MEDS: CARVEDILOL 6.25 MG TABLET PO SCH ×2 (08:25→16:49)
--- NOTE | 2019-01-09 12:10 | NUR ---
RN NOTE PATIENT IS CURRENTLY RECEIVING HEMODIALYSIS AT THIS TIME, WILL MONITOR ACCORDINGLY
--- NOTE | 2019-01-09 18:46 | NUR ---
RN CLOSING NOTE PT IN BED AT LOWEST AND LOCKED POSITION WITH SIDE RAILS UP X2, A/O X3 FORGETFUL, BREATHING EVEN AND UNLABORED RESTING COMFORTABLY IN BED, FERNANDEZ IN PLACE, IV IS PATENT AND INTACT, HD DONE TODAY VIA LEFT FEMORAL HD CATH WITH 500 CC OUT, SAFETY PRECAUTIONS IN PLACE, CALL LIGHT WITHIN REACH, ALL NEEDS ATTENDED TO, WILL ENDORSE TO HOME HEALTH PHYSICAL THERAPIST RN FOR JOE.
--- NOTE | 2019-01-09 19:30 | NUR ---
MS/RN OPENING NOTES PT RECEIVED AWAKE, RESTING COMFORTABLY IN BED. A/OX3. ON 2L O2 VIA NC, BREATHING EVEN AND UNLABORED. NO S/S OF SOB, DENIES PAIN AT THIS TIME. IN NO ACUTE DISTRESS. PASHA PICC LINE PATENT AND INTACT. FERNANDEZ IN PLACE AND DRAINING TO GRAVITY. HOB ELEVATED PER PT REQUEST. BED IN LOW/LOCKED POSITION WITH CALL LIGHT IN REACH, BILATERAL UPPER SIDE RAILS IN PLACE AND BED ALARM ON FOR SAFETY. WILL CONTINUE TO MONITOR
[2019-01-09 20:00] VITALS: BP 147/85
[2019-01-09 21:25] VITALS: BP 147/85
[2019-01-09] MEDS: ATORVASTATIN 40 MG TABLET PO SCH (22:12)
[2019-01-09] MEDS: INSULIN GLARGINE, 100 UNIT/ML CARTRIDGE SQ SCH (22:19)
[2019-01-09] MEDS: *INSULIN REGULAR(HUMULIN R)HUM 100 UNIT/ML VIAL SQ PRN (22:30)
--- NOTE | 2019-01-09 22:36 | NUR ---
MS/RN NOTES BLOOD GLUCOSE LEVEL 136, PT ONLY ABLE TO EAT LITTLE BIT OF SNACK. ADMINISTERED SCHEDULED LANTUS AND HELD REGULAR INSULIN. PT AGREED. WILL MONITOR FOR S/S OF HYPOGLYCEMIA
[2019-01-10] MEDS: ALBUTEROL HALF STRENGTH 1.25 MG/3 ML VIAL.NEB NEB SCH ×4 (00:46→19:10)
[2019-01-10] MEDS: IPRATROPIUM NEB FS 0.5 MG/2.5 ML AMPUL.NEB NEB SCH ×4 (00:46→19:10)
[2019-01-10] MEDS: HYDROCODONE/APAP 5/325MG 1 EACH TABLET PO PRN ×4 (02:59→21:11)
--- NOTE | 2019-01-10 03:00 | NUR ---
MS/RN NOTES PT C/O OF PAIN 04/15 TO RIGHT SHOULDER. REQUESTING PAIN MEDICATION. ADMINISTERED PRN NORCO ORDERED.
[2019-01-10] MEDS: PIPERACILLIN /TAZOBACTAM 2.25 G in IV D5W 50 ML IV SCH ×3 (06:05→23:07)
[2019-01-10] MEDS: INSULIN REGULAR, HUMAN 100 UNIT/ML 3 ML VIAL SQ PRN ×2 (06:40→11:10)
[2019-01-10] MEDS: BLOOD SUGAR DIAGNOSTIC 1 EACH STRIP VI SCH ×4 (06:40→21:59)
--- NOTE | 2019-01-10 06:43 | NUR ---
MS/RN CLOSING NOTES PT WITH EYES CLOSED, RESTING COMFORTABLY IN BED. REMAINS ON 2L O2 VIA NC, BREATHING EVEN AND UNLABORED. DENIES SOB AND PAIN AT THIS TIME. IN NO ACUTE DISTRESS. PASHA PICC LINE PATENT AND INTACT. LEFT FEMORAL HD IN PLACE. FERNANDEZ IN PLACE AND DRAINING TO GRAVITY. TURNED/REPOSITIONED Q2H, HEELS OFFLOADED. DRESSING TO RIGHT LEG REMAINS C/D/I. NO SIGNIFICANT CHANGES OVERNIGHT. ALL NEEDS MET. BED REMAINS IN LOW/LOCKED POSITION WITH CALL LIGHT IN REACH, HOB ELEVATED 35 DEGREES AND SIDE RAILS UPX3. WILL ENDORSE TO DAY SHIFT RN JOE.
[2019-01-10 07:06] LABS: CALCIUM, SERUM 8.5 mg/dL (8.5-10.1); CREATININE 5.4 mg/dL (0.6-1.3); POTASSIUM 3.8 mmol/L (3.5-5.1)
[2019-01-10 07:07] LABS: BASOPHILS # (AUTO) 0.1 /CMM (0.0-0.2); BASOPHILS % (AUTO) 0.7 % (0.0-2.0); EOSINOPHILS % (AUTO) 7.4 % (0.0-6.0); HEMATOCRIT 27 % (39-51); HEMOGLOBIN 9.4 g/dL (13.5-17.5); LYMPHOCYTES # (AUTO) 2.2 /CMM (0.8-4.8); MEAN CORPUSCULAR HGB CONC 35 g/dl (31.0-36.0); MEAN CORPUSCULAR VOLUME 87 fL (80-96); MONOCYTES # (AUTO) 0.6 /CMM (0.1-1.30); MONOCYTES % (AUTO) 6.4 % (2.0-12.0); NEUTROPHILS # (AUTO) 5.3 /CMM (1.8-8.9); NEUTROPHILS % (AUTO) 60.5 % (43.0-81.0); PLATELET COUNT (AUTO) 233 /CMM (150-450); RED BLOOD CELL COUNT(AUTO) 3.15 MIL/uL (4.5-6.0); WHITE BLOOD COUNT (AUTO) 8.7 K/uL (4.3-11.0)
--- NOTE | 2019-01-10 07:47 | NUR ---
MS RN OPENING NOTES RECEIVED PATIENT IN STABLE CONDITION. IN NO APPARENT DISTRESS. BEDSIDE RAILS ARE UPX2. BED IS LOCKED AND LOWERED. CALL LIGHT IS WITHIN REACH. IV LINE IS INTACT AND PATENT. WILL CONTINUE TO MONITOR PATIENT.
[2019-01-10 08:00] VITALS: BP 143/82
[2019-01-10] MEDS: ARIPIPRAZOLE 5 MG TABLET PO SCH (09:19)
[2019-01-10] MEDS: ASPIRIN 81 MG TAB.CHEW PO SCH (09:20)
[2019-01-10] MEDS: CARVEDILOL 6.25 MG TABLET PO SCH ×2 (09:20→16:37)
[2019-01-10] MEDS: NYSTATIN/TRIAMCIN CREAM 15 GM TUBE TP SCH ×2 (11:05→23:27)
[2019-01-10 12:00] VITALS: BP 134/81
--- NOTE | 2019-01-10 13:08 | NUR ---
PATIENT IS CURRENTLY RECEIVING DIALYSIS. CAN NOT ADMINISTER ZOSYN AT THIS TIME. WILL WAIT UNTIL DIALYSIS IS COMPLETE TO ADMINISTER ZOSYN. PATIENT WILL BE FINISHED WITH DIALYSIS AT 1500.
--- NOTE | 2019-01-10 18:36 | NUR ---
MS RN CLOSING NOTES PATIENT IS IN STABLE CONDITION. IN NO APPARENT DISTRESS. BEDSIDE RAILS ARE UPX2. BED IS LOCKED AND LOWERED. CALL LIGHT IS WITHIN REACH. IV LINE IS INTACT AND PATENT. ALL NEEDS WERE MET. WILL ENDORSE CARE TO SIGNALS INTELLIGENCE ANALYSIS MANAGER NURSE FOR JOE.
--- NOTE | 2019-01-10 19:30 | NUR ---
MS LAKE INITIAL NOTES Patient in bed, awake. A/O x3, on supplemental oxygen at 2L NC, tolerating well denies SOB. PASHA PICC line intact, Left HD cath dressing C/D/I. Maintained safety, will cont to monitor.
[2019-01-10 20:00] VITALS: BP 149/86
[2019-01-10] MEDS: ATORVASTATIN 40 MG TABLET PO SCH (21:02)
[2019-01-10] MEDS: *INSULIN REGULAR(HUMULIN R)HUM 100 UNIT/ML VIAL SQ PRN (21:57)
[2019-01-10] MEDS: INSULIN GLARGINE, 100 UNIT/ML CARTRIDGE SQ SCH (21:59)
[2019-01-10 22:00] VITALS: BP 149/90
[2019-01-11] MEDS: ALBUTEROL HALF STRENGTH 1.25 MG/3 ML VIAL.NEB NEB SCH ×4 (01:55→19:19)
[2019-01-11] MEDS: IPRATROPIUM NEB FS 0.5 MG/2.5 ML AMPUL.NEB NEB SCH ×4 (01:55→19:19)
[2019-01-11] MEDS: HYDROCODONE/APAP 5/325MG 1 EACH TABLET PO PRN ×3 (04:39→18:22)
[2019-01-11] MEDS: PIPERACILLIN /TAZOBACTAM 2.25 G in IV D5W 50 ML IV SCH ×3 (06:09→21:41)
--- NOTE | 2019-01-11 06:22 | NUR ---
MS RN CLOSING NOTES Patient in bed, on supplemental oxygen at 2L NC denies shortness of breath at rest and with exertion. PASHA PICC line intact, on IV antibiotic as scheduled no BM this shift, no diarrhea, afebrile. Right leg, shoulder pain controlled with PRN [place]. Left femoral HD cath dressing C/D/I, Nephro following. Slept well, no acute events overnight.
[2019-01-11 06:24] LABS: BASOPHILS # (AUTO) 0.1 /CMM (0.0-0.2); BASOPHILS % (AUTO) 0.8 % (0.0-2.0); EOSINOPHILS % (AUTO) 7.4 % (0.0-6.0); HEMATOCRIT 27 % (39-51); HEMOGLOBIN 9.1 g/dL (13.5-17.5); LYMPHOCYTES # (AUTO) 2.1 /CMM (0.8-4.8); LYMPHOCYTES % (AUTO) 20.8 % (20.0-44.0); MEAN CORPUSCULAR HGB CONC 34 g/dl (31.0-36.0); MEAN CORPUSCULAR VOLUME 86 fL (80-96); MONOCYTES # (AUTO) 0.6 /CMM (0.1-1.30); NEUTROPHILS # (AUTO) 6.5 /CMM (1.8-8.9); PLATELET COUNT (AUTO) 179 /CMM (150-450); RED BLOOD CELL COUNT(AUTO) 3.08 MIL/uL (4.5-6.0)
[2019-01-11] MEDS: INSULIN REGULAR, HUMAN 100 UNIT/ML 3 ML VIAL SQ PRN ×2 (06:34→18:23)
[2019-01-11] MEDS: BLOOD SUGAR DIAGNOSTIC 1 EACH STRIP VI SCH ×4 (06:34→21:41)
[2019-01-11 06:36] LABS: CALCIUM, SERUM 8.3 mg/dL (8.5-10.1); CREATININE 4.2 mg/dL (0.6-1.3); MAGNESIUM 1.8 mg/dL (1.8-2.4); PHOSPHORUS 3.5 mg/dL (2.5-4.9)
--- NOTE | 2019-01-11 07:20 | NUR ---
MSRN. PT RECEIVED A&0X3, AWAKE AND RESTING IN BED. PT WITH O2 VIA NC AT 2LPM, RT TX PENDING, DENIES SOB AND APPEARS WITHOUT RESP DISTRESS. AUSCULTATED CLEAR WITH DIMINISHED LOWER LOBES. PT REPORTS PAIN TO LEFT SHOULDER, RIGHT LEG AND REQUESTING [place]. PT REFUSING REPOSITIONING AT THIS TIME. PT WITH PICC LINE AT PASHA INTACT AND SALIEN FLUSH PATENT. L FEMORAL HD CATH. PT WITH RIGHT LEG BANDAGE CLEAN AND INTACT. PT BED IN LOWEST LOCKED POSITION WITH HANDRIALSX2 AND CALL FLOOD WITHIN REACH. PT BRIEFED ON TODAY'S POC.
[2019-01-11 08:00] VITALS: BP 163/98
[2019-01-11] MEDS: CARVEDILOL 6.25 MG TABLET PO SCH ×2 (08:18→16:49)
[2019-01-11] MEDS: ASPIRIN 81 MG TAB.CHEW PO SCH (08:18)
[2019-01-11] MEDS: ARIPIPRAZOLE 5 MG TABLET PO SCH (08:18)
--- NOTE | 2019-01-11 08:19 | NUR ---
MED NOTE. ELECTRO MECHANIC MED HELD R/T TO PT UNDERGOING HD NOW.
[2019-01-11] MEDS: NYSTATIN/TRIAMCIN CREAM 15 GM TUBE TP SCH ×2 (12:39→23:48)
--- NOTE | 2019-01-11 13:00 | NUR ---
MSRN. PT REFUSED INSULIN COVERAGE.
[2019-01-11 16:00] VITALS: BP 160/89
[2019-01-11] MEDS: diphenhydrAMINE HCL 25 MG CAPSULE PO PRN (16:50)
--- NOTE | 2019-01-11 18:53 | NUR ---
MSRN. PT REMAINS A&0X3, RESTING IN BED. PT WITH O2 VIA NC AT 2LPM WITHOUT RESP DISTRESS. PT REPORTED PAIN TO RIGHT LEG AND NORCO PROVIDED. PT WITH PICC LINE AT PASHA INTACT AND SALINE FLUSH PATENT. L FEMORAL HD CATH, HD TODAY 1000CC OUT. PT WITH NEW RIGHT LEG BANDAGE CLEAN AND INTACT. PT BED IN LOWEST LOCKED POSITION WITH HANDRIALSX2 AND CALL FLOOD WITHIN REACH. WILL ENDORSE TO NIGHT NURSE AT BEDSIDE FOR JOE.
--- NOTE | 2019-01-11 19:15 | NUR ---
RN OPEN NOTES RECEIVED PATIENT RESTING IN BED, EASILY AROUSABLE. A/O X3. NO SIGNS OF DISTRESS OR DISCOMFORT. BREATHING EVEN AND UNLABORED. ON 2LPM O2 VIA NC. HAS L FEMORAL HD CATH AND PASHA PICC, INTACT, NO SIGNS OF REDNESS OR INFILTRATION. HAS F/C INTACT WITH CLOUDY YELLOW FLUID DRAINING. BED IN LOW LOCKED POSITION WITH SIDE RAILS X3. CALL LIGHT WITHIN REACH. WILL CONTINUE TO MONITOR.
[2019-01-11 20:58] VITALS: BP 141/84
[2019-01-11] MEDS: ATORVASTATIN 40 MG TABLET PO SCH (21:41)
[2019-01-11] MEDS: INSULIN GLARGINE, 100 UNIT/ML CARTRIDGE SQ SCH (21:48)
[2019-01-11] MEDS: *INSULIN REGULAR(HUMULIN R)HUM 100 UNIT/ML VIAL SQ PRN (21:49)
[2019-01-12] MEDS: ALBUTEROL HALF STRENGTH 1.25 MG/3 ML VIAL.NEB NEB SCH ×4 (01:06→20:04)
[2019-01-12] MEDS: IPRATROPIUM NEB FS 0.5 MG/2.5 ML AMPUL.NEB NEB SCH ×4 (01:06→20:03)
[2019-01-12] MEDS: HYDROCODONE/APAP 5/325MG 1 EACH TABLET PO PRN ×3 (01:48→20:28)
[2019-01-12] MEDS: PIPERACILLIN /TAZOBACTAM 2.25 G in IV D5W 50 ML IV SCH ×3 (05:09→20:26)
[2019-01-12] MEDS: BLOOD SUGAR DIAGNOSTIC 1 EACH STRIP VI SCH ×4 (06:38→21:56)
--- NOTE | 2019-01-12 07:25 | NUR ---
RN CLOSING NOTES PATIENT RESTING IN BED, EASILY AROUSABLE. A/O X3. NO SIGNS OF DISTRESS OR DISCOMFORT. BREATHING EVEN AND UNLABORED. ON 2LPM O2 VIA NC. HAS L FEMORAL HD CATH AND PASHA PICC, INTACT, NO SIGNS OF REDNESS OR INFILTRATION. HAS F/C INTACT WITH CLOUDY YELLOW FLUID DRAINING. ALL NEEDS MET. NO SIGNIFICANT CHANGES THROUGH THE NIGHT. BED IN LOW LOCKED POSITION WITH SIDE RAILS X3. CALL LIGHT WITHIN REACH. ENDORSED TO AM SHIFT FOR JOE.
--- NOTE | 2019-01-12 07:29 | NUR ---
RN OPENING NOTE PT WAS RECEIVED IN BED AT LOWEST AND LOCKED POSITION WITH SIDE RAILS UP X2, A/O X3 FORGETFUL, BREATHING EVEN AND UNLABORED WITH NO S/S OF PAIN OR DISTRESS NOTED, NOTED TO HAVE FERNANDEZ IN PLACE, PT A PASHA PICC LINE AND LEFT FEMORAL HD CATH, NOTED TO HAVE LEFT SIDED WEAKNESS AND RIGHT LEG SURGICAL INCISIONS, SAFETY PRECAUTIONS IN PLACE, CALL LIGHT WITHIN REACH, WILL MONITOR ACCORDINGLY.
[2019-01-12 08:00] VITALS: BP 139/86
[2019-01-12 08:17] LABS: BASOPHILS # (AUTO) 0.1 /CMM (0.0-0.2); BASOPHILS % (AUTO) 0.8 % (0.0-2.0); EOSINOPHILS % (AUTO) 9.4 % (0.0-6.0); HEMATOCRIT 27 % (39-51); HEMOGLOBIN 9.3 g/dL (13.5-17.5); LYMPHOCYTES # (AUTO) 2.5 /CMM (0.8-4.8); LYMPHOCYTES % (AUTO) 25.5 % (20.0-44.0); MEAN CORPUSCULAR HGB CONC 34 g/dl (31.0-36.0); MEAN CORPUSCULAR VOLUME 88 fL (80-96); MONOCYTES # (AUTO) 0.7 /CMM (0.1-1.30); MONOCYTES % (AUTO) 6.8 % (2.0-12.0); NEUTROPHILS # (AUTO) 5.5 /CMM (1.8-8.9); NEUTROPHILS % (AUTO) 57.5 % (43.0-81.0); PLATELET COUNT (AUTO) 133 /CMM (150-450); RED BLOOD CELL COUNT(AUTO) 3.11 MIL/uL (4.5-6.0); WHITE BLOOD COUNT (AUTO) 9.6 K/uL (4.3-11.0)
[2019-01-12 08:26] LABS: CALCIUM, SERUM 8.4 mg/dL (8.5-10.1); CREATININE 3.8 mg/dL (0.6-1.3); MAGNESIUM 1.9 mg/dL (1.8-2.4); PHOSPHORUS 3.6 mg/dL (2.5-4.9); POTASSIUM 3.8 mmol/L (3.5-5.1)
[2019-01-12] MEDS: CARVEDILOL 6.25 MG TABLET PO SCH ×2 (08:27→17:14)
[2019-01-12] MEDS: ASPIRIN 81 MG TAB.CHEW PO SCH (08:27)
[2019-01-12] MEDS: ARIPIPRAZOLE 5 MG TABLET PO SCH (08:27)
[2019-01-12] MEDS: NYSTATIN/TRIAMCIN CREAM 15 GM TUBE TP SCH (10:42)
[2019-01-12] MEDS: INSULIN REGULAR, HUMAN 100 UNIT/ML 3 ML VIAL SQ PRN ×2 (11:52→17:16)
[2019-01-12] MEDS: diphenhydrAMINE HCL 25 MG CAPSULE PO PRN (12:01)
--- NOTE | 2019-01-12 13:21 | NUR ---
RN NOTE PT ENDORSED TO [place] AT THIS TIME FOR JOE.
--- NOTE | 2019-01-12 13:30 | NUR ---
MS RN ASSUMPTION OF CARE ASSUMPTION OF CARE FROM ALEKSANDRA COLÓN. RECEIVED PT IN BED, ALERT AND ORIENTED X3, PRIMARILY [place] ISLANDER SPEAKING. NO ACUTE DISTRESS NOTED AT THIS TIME, BREATHING IS EVEN AND UNLABORED ON 2L NC. RIGHT UPPER ARM PICC LINE IS PATENT, CLEAN, DRY AND INTACT. FERNANDEZ CATHETER NOTED TO BE DRAINING CLEAR, YELLOW URINE. ASPIRATION PRECAUTIONS MAINTAINED. ALL NEEDS ATTENDED TO. BED IS LOCKED AND IN LOWEST POSITION, SIDE RAILS UP X2, BED ALARM ON, CALL LIGHT AND POSSESSIONS WITHIN REACH.
[2019-01-12] MEDS ORDERED: NEPRO VAN 237 ML CAN PO PRN (15:00)
--- NOTE | 2019-01-12 15:19 | NUR ---
MS RN NOTE PT REPORTED CHEST PAIN RATED 8/10. VSl 154/97, HR: 72, SPO2 96%, R: 22. INFORMED OMAYRA GONZALEZ NP. ORDERS RECEIVED FOR STAT EKG.
--- NOTE | 2019-01-12 15:30 | NUR ---
MS RN NOTE STAT EKG IS SINUS RHYTHM, NO NEW ORDERS PER OMAYRA GONZALEZ NP
[2019-01-12 16:00] VITALS: BP 145/83
--- NOTE | 2019-01-12 18:09 | NUR ---
MS RN CLOSING NOTE PT IN BED, ALERT AND ORIENTED X3, PRIMARILY GUYANESE SPEAKING. NO ACUTE DISTRESS NOTED AT THIS TIME, BREATHING IS EVEN AND UNLABORED ON 2L NC. RIGHT UPPER ARM PICC LINE IS PATENT, CLEAN, DRY AND INTACT. FERNANDEZ CATHETER NOTED TO BE DRAINING CLEAR, YELLOW URINE. ASPIRATION PRECAUTIONS MAINTAINED. ADLS PROVIDED AND PT TURNED AND REPOSITIONED Q2H. ALL NEEDS ATTENDED TO. BED IS LOCKED AND IN LOWEST POSITION, SIDE RAILS UP X2, BED ALARM ON, CALL LIGHT AND POSSESSIONS WITHIN REACH. WILL ENDORSE TO STONE REPAIRER NURSE FOR CONTINUITY OF CARE.
--- NOTE | 2019-01-12 19:20 | NUR ---
RN OPEN NOTES RECEIVED PATIENT RESTING IN BED, EASILY AROUSABLE. A/O X3. NO SIGNS OF DISTRESS OR DISCOMFORT. BREATHING EVEN AND UNLABORED. ON 2LPM O2 VIA NC. HAS L FEMORAL HD CATH AND PASHA PICC, INTACT, NO SIGNS OF REDNESS OR INFILTRATION. HAS F/C INTACT WITH CLEAR ALICE FLUID DRAINING. BED IN LOW LOCKED POSITION WITH SIDE RAILS X3. CALL LIGHT WITHIN REACH. WILL CONTINUE TO MONITOR.
[2019-01-12 20:00] VITALS: BP 143/75
[2019-01-12] MEDS: ATORVASTATIN 40 MG TABLET PO SCH (21:56)
[2019-01-12] MEDS: INSULIN GLARGINE, 100 UNIT/ML CARTRIDGE SQ SCH (21:57)
[2019-01-12] MEDS: *INSULIN REGULAR(HUMULIN R)HUM 100 UNIT/ML VIAL SQ PRN (21:58)
[2019-01-12] MEDS: ZOLPIDEM TARTRATE 5 MG TABLET PO PRN (22:06)
[2019-01-13] MEDS: NYSTATIN/TRIAMCIN CREAM 15 GM TUBE TP SCH ×3 (00:02→22:49)
[2019-01-13] MEDS: IPRATROPIUM NEB FS 0.5 MG/2.5 ML AMPUL.NEB NEB SCH ×4 (01:42→19:45)
[2019-01-13] MEDS: ALBUTEROL HALF STRENGTH 1.25 MG/3 ML VIAL.NEB NEB SCH ×4 (01:42→19:45)
[2019-01-13] MEDS: PIPERACILLIN /TAZOBACTAM 2.25 G in IV D5W 50 ML IV SCH ×2 (05:10→13:53)
[2019-01-13] MEDS: BLOOD SUGAR DIAGNOSTIC 1 EACH STRIP VI SCH ×4 (06:19→21:46)
--- NOTE | 2019-01-13 06:53 | NUR ---
RN CLOSING NOTES PATIENT RESTING IN BED, EASILY AROUSABLE. A/O X3. NO SIGNS OF DISTRESS OR DISCOMFORT. BREATHING EVEN AND UNLABORED. ON 2LPM O2 VIA NC. HAS L FEMORAL HD CATH AND PASHA PICC, INTACT, NO SIGNS OF REDNESS OR INFILTRATION. HAS F/C INTACT WITH CLEAR ALICE FLUID DRAINING. ALL NEEDS MET. NO SIGNIFICANT CHANGES THROUGH THE NIGHT. BED IN LOW LOCKED POSITION WITH SIDE RAILS X3. CALL LIGHT WITHIN REACH. WILL ENDORSE TO AM SHIFT FOR JOE.
[2019-01-13 07:27] LABS: BASOPHILS # (AUTO) 0.1 /CMM (0.0-0.2); BASOPHILS % (AUTO) 0.9 % (0.0-2.0); EOSINOPHILS % (AUTO) 7.4 % (0.0-6.0); HEMATOCRIT 26 % (39-51); LYMPHOCYTES # (AUTO) 2.4 /CMM (0.8-4.8); LYMPHOCYTES % (AUTO) 22.2 % (20.0-44.0); MEAN CORPUSCULAR HGB CONC 35 g/dl (31.0-36.0); MEAN CORPUSCULAR VOLUME 87 fL (80-96); MONOCYTES # (AUTO) 0.9 /CMM (0.1-1.30); MONOCYTES % (AUTO) 8.2 % (2.0-12.0); NEUTROPHILS # (AUTO) 6.6 /CMM (1.8-8.9); NEUTROPHILS % (AUTO) 61.3 % (43.0-81.0); PLATELET COUNT (AUTO) 129 /CMM (150-450); RED BLOOD CELL COUNT(AUTO) 2.99 MIL/uL (4.5-6.0); WHITE BLOOD COUNT (AUTO) 10.8 K/uL (4.3-11.0)
--- NOTE | 2019-01-13 07:42 | NUR ---
MS RN OPENING NOTE PT IN BED, ALERT AND ORIENTED X4, PRIMARILY BELIZEAN SPEAKING. NO ACUTE DISTRESS NOTED AT THIS TIME, BREATHING IS EVEN AND UNLABORED ON 2L NC. RIGHT UPPER ARM PICC LINE IS PATENT, CLEAN, DRY AND INTACT. LEFT FEMORAL HD CATH DRESSING CLEAN, DRY AND INTACT. FERNANDEZ CATHETER NOTED TO BE DRAINING CLEAR, YELLOW URINE. ASPIRATION PRECAUTIONS MAINTAINED. ALL NEEDS ATTENDED TO. BED IS LOCKED AND IN LOWEST POSITION, SIDE RAILS UP X2, BED ALARM ON, CALL LIGHT AND POSSESSIONS WITHIN REACH.
[2019-01-13 08:00] VITALS: BP 172/98
[2019-01-13 08:06] LABS: CALCIUM, SERUM 8.6 mg/dL (8.5-10.1); CREATININE 4.2 mg/dL (0.6-1.3); MAGNESIUM 1.8 mg/dL (1.8-2.4); PHOSPHORUS 3.5 mg/dL (2.5-4.9); POTASSIUM 3.2 mmol/L (3.5-5.1)
--- NOTE | 2019-01-13 08:30 | NUR ---
MS RN NOTE PER CARA, DIALYSIS NURSE. PT WILL HAVE DIALYSIS TOMORROW AND OKAY TO GIVE BP MEDICATIONS.
[2019-01-13] MEDS: ASPIRIN 81 MG TAB.CHEW PO SCH (08:40)
[2019-01-13] MEDS: ARIPIPRAZOLE 5 MG TABLET PO SCH (08:40)
[2019-01-13] MEDS: CARVEDILOL 6.25 MG TABLET PO SCH ×2 (08:41→17:15)
[2019-01-13] MEDS: HYDROCODONE/APAP 5/325MG 1 EACH TABLET PO PRN (09:27)
[2019-01-13] MEDS ORDERED: POTASSIUM CHLORIDE 20 MEQ TAB.PRT.SR PO SCH (11:00)
[2019-01-13] MEDS: INSULIN REGULAR, HUMAN 100 UNIT/ML 3 ML VIAL SQ PRN ×4 (11:46→21:53)
--- NOTE | 2019-01-13 12:33 | NUR ---
MS RN NOTE PER DIALYSIS NURSE CARA, PT WILL HAVE DIALYSIS TODAY.
[2019-01-13] MEDS ORDERED: DOSE PER PHARMACY (MD SPECIFY MEDICATION) 1 EA XX PRN (14:00)
[2019-01-13] MEDS ORDERED: AMOX/CLAVULANATE 500 MG TABLET PO SCH (15:00)
--- NOTE | 2019-01-13 15:30 | NUR ---
MS RN NOTE REQUESTED AUGMENTIN PO TO BE SENT BY PHARMACY, AWAITING RECEIPT.
[2019-01-13 16:00] VITALS: BP 153/86
--- NOTE | 2019-01-13 16:40 | NUR ---
MS RN NOTE FOLLOWED UP WITH PHARMACY REGARDING AUGMENTIN,PER PHARMACY THEY WILL SEND UP SHORTLY.
--- NOTE | 2019-01-13 17:00 | NUR ---
MS RN NOTE PER DIALYSIS NURSE, OKAY TO GIVE 1700 DOSE OF CARVEDILOL.
[2019-01-13] MEDS: INSULIN GLARGINE, 100 UNIT/ML CARTRIDGE SQ SCH (17:18)
--- NOTE | 2019-01-13 18:19 | NUR ---
MS RN NOTE PER BRENDA IN PHARMACY THEY WILL SEND AUGMENTIN SHORTLY.
--- NOTE | 2019-01-13 18:20 | NUR ---
MS RN CLOSING NOTE PT IN BED, ALERT AND ORIENTED X4, PRIMARILY MALAYSIAN SPEAKING. NO ACUTE DISTRESS NOTED AT THIS TIME, BREATHING IS EVEN AND UNLABORED ON 2L NC. RIGHT UPPER ARM PICC LINE IS PATENT, CLEAN, DRY AND INTACT. LEFT FEMORAL HD CATH IS CLEAN, DRY AND INTACT. FERNANDEZ CATHETER NOTED TO BE DRAINING CLEAR, YELLOW URINE. ASPIRATION PRECAUTIONS MAINTAINED. ADLS PROVIDED AND PT TURNED AND REPOSITIONED Q2H. WOUND CARE PROVIDED ORDERED. ALL NEEDS ATTENDED TO. BED IS LOCKED AND IN LOWEST POSITION, SIDE RAILS UP X2, BED ALARM ON, CALL LIGHT AND POSSESSIONS WITHIN REACH. WILL ENDORSE TO RN EMERGENCY ROOM NURSE FOR CONTINUITY OF CARE.
[2019-01-13] MEDS: AMOX/CLAVULANATE 250 MG TABLET PO SCH (18:35)
--- NOTE | 2019-01-13 19:45 | NUR ---
MS RN NOTE: PATIENT RESTING IN BED, NO ACUTE DISTRESS NOTED. BREATHING EVEN AND UNLABORED, NO SOB NOTED. PICC LINE TO TERRELL IN PLACE. HD CATH TO LEFT FEMORAL IN PLACE, NO BLEEDING NOTED. NO S/S OF HYPER/HYPOGLYCEMIA NOTED. BED LOCKED AND IN LOWEST POSITION, CALL LIGHT IN REACH, WILL CONTINUE TO MONITOR.
[2019-01-13 20:00] VITALS: BP 137/84
[2019-01-13] MEDS: ATORVASTATIN 40 MG TABLET PO SCH (21:44)
[2019-01-13] MEDS: ZOLPIDEM TARTRATE 5 MG TABLET PO PRN (21:46)
[2019-01-13] MEDS: *INSULIN REGULAR(HUMULIN R)HUM 100 UNIT/ML VIAL SQ PRN (21:55)
--- NOTE | 2019-01-13 22:00 | NUR ---
MS RN NOTE: PATIENT BLOOD SUGAR LEVEL 207MG/DL, PATIENT TO RECEIVE 4 UNITS OF INSULIN PER SLIDING SCALE. NO S/S OF HYPER/HYPOGLYCEMIA NOTED. WILL CONTINUE TO MONITOR.
[2019-01-14] MEDS: ACETAMINOPHEN 325 MG TABLET PO PRN (00:26)
--- NOTE | 2019-01-14 00:30 | NUR ---
MS RN NOTE: PATIENT COMPLAINS OF ABDOMINAL PAIN 12/14, TYLENOL 650MG ORAL GIVEN PER MD ORDER. WILL CONTINUE TO MONITOR.
[2019-01-14] MEDS: ALBUTEROL HALF STRENGTH 1.25 MG/3 ML VIAL.NEB NEB SCH ×4 (00:38→19:14)
[2019-01-14] MEDS: IPRATROPIUM NEB FS 0.5 MG/2.5 ML AMPUL.NEB NEB SCH ×4 (00:38→19:14)
[2019-01-14] MEDS: AMOX/CLAVULANATE 250 MG TABLET PO SCH ×4 (05:19→17:55)
--- NOTE | 2019-01-14 06:23 | NUR ---
MS RN NOTE: PATIENT RESTING IN BED, NO ACUTE DISTRESS NOTED. BREATHING EVEN AND UNLABORED, NO SOB NOTED. PICC LINE TO TERRELL IN PLACE. HD CATH TO LEFT FEMORAL IN PLACE, RECEIVE HD AT THIS TIME. BLOOD SUGAR LEVEL 206MG/DL, NO INSULIN GIVEN AT THIS TIME SINCE ON HD, NO S/S OF HYPER/HYPOGLYCEMIA NOTED. AUGMENTIN NOT GIVEN SINCE PATIENT IS ON HD. BED LOCKED AND IN LOWEST POSITION, CALL LIGHT IN REACH, WILL ENDORSE TO DAY NURSE TO CONTINUE WITH PLAN OF CARE.
[2019-01-14] MEDS: BLOOD SUGAR DIAGNOSTIC 1 EACH STRIP VI SCH ×4 (06:37→22:15)
[2019-01-14 06:59] LABS: CALCIUM, SERUM 8.3 mg/dL (8.5-10.1); CREATININE 3.4 mg/dL (0.6-1.3); POTASSIUM 3.1 mmol/L (3.5-5.1)
--- NOTE | 2019-01-14 07:51 | NUR ---
RN NOTES Dialysis completed at this time. VS stable BP-138/87 HR-78 Temp-98.7F. 1 liter removed. Patient asleep and resting in bed. Will continue to monitor.
[2019-01-14 08:00] VITALS: BP 147/85
--- NOTE | 2019-01-14 08:00 | NUR ---
RN OPENING NOTES Received Patient comfortable and asleep in bed. Breathing even and unlabored on 2LPM O2 via NC. VS stable with no acute signs and symptoms of distress. No signs and symptoms of pain noted. IV PICC on RIGHT UPPER ARM, patent, clean, dry and intact. No redness, swelling nor pain at site. IV flushes well. Mendez Cath intact and patent. 200ml of clear/yolanda urine output noted. RIGHT LOWER EXTREMITY dressing, clean, dry and intact. Elevated RIGHT LOWER EXTREMITY with a pillow. All scheduled medications administered. Safety precautions in place. Bed locked and kept in low position with side rails up x 2. Call light within reach. Will continue to monitor.
[2019-01-14] MEDS: CARVEDILOL 6.25 MG TABLET PO SCH ×2 (08:46→16:53)
[2019-01-14] MEDS: ASPIRIN 81 MG TAB.CHEW PO SCH (08:46)
[2019-01-14] MEDS: ARIPIPRAZOLE 5 MG TABLET PO SCH (08:47)
--- NOTE | 2019-01-14 08:48 | NUR ---
RN NOTES Augmentin unscheduled medication given at this time. Per operations supervisor 2nd shift nurse, unable to administer medication at 0600 d/t Patient having dialysis. Pharmacy notified. Will continue to monitor.
[2019-01-14] MEDS ORDERED: INSULIN GLARGINE, 100 UNIT/ML CARTRIDGE SQ SCH (09:00)
[2019-01-14] MEDS: POTASSIUM CL. PREMIX PERIPHER. 50 ML IV SCH ×2 (11:27→11:35)
[2019-01-14] MEDS: NYSTATIN/TRIAMCIN CREAM 15 GM TUBE TP SCH ×2 (11:35→22:35)
[2019-01-14] MEDS: INSULIN REGULAR, HUMAN 100 UNIT/ML 3 ML VIAL SQ PRN ×3 (12:51→22:34)
[2019-01-14 16:00] VITALS: BP 126/76
[2019-01-14] MEDS: HYDROCODONE/APAP 5/325MG 1 EACH TABLET PO PRN ×2 (17:08→23:54)
--- NOTE | 2019-01-14 17:08 | NUR ---
RN NOTES Administered [place] 5-325mg PO PRN per Patients request. Patient stated pain level of 7/10 on LEFT SHOULDER/ARM. Repositioned Patient with LEFT ARM elevated on one pillow. Will continue to monitor.
[2019-01-14] MEDS: INSULIN GLARGINE, 100 UNIT/ML CARTRIDGE SQ SCH (18:00)
--- NOTE | 2019-01-14 18:00 | NUR ---
RN NOTES Insulin Glargine held d/t Patients poor PO intake. VS stable with no signs and symptoms of distress. At 1730 BS-180 covered with 3 units Insulin Regular. Will continue to monitor.
--- NOTE | 2019-01-14 19:04 | NUR ---
RN CLOSING NOTES Patient awake and comfortable in bed. Breathing even and unlabored on 2LPM O2 via NC. VS stable with no acute signs and symptoms of distress. Denies pain. IV PICC on RIGHT UPPER ARM, patent, clean, dry and intact. No redness, swelling nor pain at site. IV flushes well. Mendez Cath intact and patent. Urine output clear/yolanda noted. LEFT FEMORAL HD CATH dry and intact. RIGHT LOWER EXTREMITY dressing, clean, dry and intact. Elevated RIGHT LOWER EXTREMITY with a pillow. Safety precautions in place. Bed locked and kept in low position with side rails up x 2. Call light within reach. Will continue to monitor.
--- NOTE | 2019-01-14 19:10 | NUR ---
MS RN NOTES RECEIVED PT IN BED SLEEPING BUT EASILY AWOKEN VERBALLY OR BY TOUCH WITH FAMILY AT BEDSIDE. BREATHING EVEN AND UNLABORED WITH NO S/S OF ACUTE DISTRESS OR SOB NOTED. PT ON 2LPM 02 VIA NC. NO COMPLAINTS OF PAIN AT THIS TIME. IV PICC ON RIGHT UPPER ARM, PATENT AND INTACT. FERNANDEZ CATH INTACT AND DRAINING. RIGHT LOWER EXTREMITY DRESSING CLEAN, DRY, AND INTACT. SAFETY PRECAUTIONS IN PLACE WITH BED IN LOW LOCKED POSITION WITH SIDE RAILS UP X2. CALL LIGHT WITHIN REACH. WILL CONTINUE TO MONITOR.
[2019-01-14 20:00] VITALS: BP 131/68
[2019-01-14] MEDS: ATORVASTATIN 40 MG TABLET PO SCH (22:15)
[2019-01-15] VITALS (13 sets, daily range): BP systolic 116–162; BP diastolic 65–95
[2019-01-15] MEDS: IPRATROPIUM NEB FS 0.5 MG/2.5 ML AMPUL.NEB NEB SCH ×4 (01:11→19:56)
[2019-01-15] MEDS: ALBUTEROL HALF STRENGTH 1.25 MG/3 ML VIAL.NEB NEB SCH ×4 (01:11→19:57)
[2019-01-15] MEDS: AMOX/CLAVULANATE 250 MG TABLET PO SCH ×2 (05:12→17:57)
[2019-01-15] MEDS ORDERED: ANESTHESIA TRAY IN PYXIS 1 EA TRAY MC ONE (07:12)
[2019-01-15] MEDS ORDERED: HEPARIN SODIUM, PORCINE 1,000 UNIT/ML VIAL ONE (07:28)
[2019-01-15] MEDS ORDERED: LIDOCAINE HCL/PF 1% 30 ML SDV ONE (07:28)
[2019-01-15] MEDS: BLOOD SUGAR DIAGNOSTIC 1 EACH STRIP VI SCH ×4 (07:29→21:37)
[2019-01-15 07:32] LABS: BASOPHILS # (AUTO) 0.1 /CMM (0.0-0.2); BASOPHILS % (AUTO) 0.6 % (0.0-2.0); EOSINOPHILS % (AUTO) 8.7 % (0.0-6.0); HEMATOCRIT 27 % (39-51); HEMOGLOBIN 9.2 g/dL (13.5-17.5); LYMPHOCYTES # (AUTO) 3.8 /CMM (0.8-4.8); LYMPHOCYTES % (AUTO) 27.4 % (20.0-44.0); MEAN CORPUSCULAR HGB CONC 34 g/dl (31.0-36.0); MEAN CORPUSCULAR VOLUME 86 fL (80-96); MONOCYTES # (AUTO) 1.3 /CMM (0.1-1.30); MONOCYTES % (AUTO) 9.7 % (2.0-12.0); NEUTROPHILS # (AUTO) 7.4 /CMM (1.8-8.9); NEUTROPHILS % (AUTO) 53.6 % (43.0-81.0); PLATELET COUNT (AUTO) 144 /CMM (150-450); RED BLOOD CELL COUNT(AUTO) 3.14 MIL/uL (4.5-6.0); WHITE BLOOD COUNT (AUTO) 13.8 K/uL (4.3-11.0)
[2019-01-15] MEDS ORDERED: FENTANYL PF 100MCG/2ML AMPUL ONE (07:36)
[2019-01-15] MEDS ORDERED: MIDAZOLAM HCL 2 MG/2ML VIAL ONE (07:36)
[2019-01-15 07:42] LABS: CALCIUM, SERUM 8.7 mg/dL (8.5-10.1); CREATININE 3.7 mg/dL (0.6-1.3); MAGNESIUM 1.9 mg/dL (1.8-2.4); PHOSPHORUS 2.1 mg/dL (2.5-4.9); POTASSIUM 3.7 mmol/L (3.5-5.1)
--- NOTE | 2019-01-15 07:49 | NUR ---
RN NOTES ENDORSED BY APPEALS NURSE NURSE FEDERICO, PATIENT WAS TRANSFERRED TO OR FOR THE PROCEDURE.
[2019-01-15] MEDS ORDERED: CELLULOSE,OXIDIZED 1 PKT EACH MC ONE (08:57)
[2019-01-15] MEDS: ASPIRIN 81 MG TAB.CHEW PO SCH (09:00)
--- NOTE | 2019-01-15 09:15 | NUR ---
RN NOTES PATIENT CAME BACK FROM OR, PER REPORT FROM PACU, NEW HD CATH WAS BLEEDING, DR. DSOUZA AWARE. SANDBAG IN PLACED, ON TOP OF THE CATHETER (X1 HOUR ONLY). VSS, WILL CONTINUE TO MONITOR VITALS AND BLEEDING. RECEIVED ORDERS FROM DR. DSOUZA. ORDERS NOTED AND CARRIED OUT.
[2019-01-15] MEDS: ARIPIPRAZOLE 5 MG TABLET PO SCH (09:45)
[2019-01-15] MEDS: CARVEDILOL 6.25 MG TABLET PO SCH ×2 (09:46→17:23)
--- NOTE | 2019-01-15 10:00 | NUR ---
RN NOTES ASA HELD DUE TO BLEEDING ON HD CATHETER SITE. FOUND PATIENT TRYING TO REMOVE SANDBAG, BUT INSTRUCTED PATIENT TO LEAVE IT DUE TO BLEEDING. PATIENT VERBALIZED UNDERSTANDING. WILL CONTINUE TO MONITOR.
--- NOTE | 2019-01-15 10:15 | NUR ---
RN NOTES PLACED A CALL TO DR. DSOUZA RE: PATIENT CONTINUOUS BLEEDING, PATIENT'S DRESSING SATURATED AGAIN. RECEIVED ORDER TO KEEP SANDBAG ON TOP OF THE HD CATH FOR A FEW HOURS AND TO START DDAVP 0.3MCG/KG IV X1 DOSE. ORDER NOTED AND CARRIED OUT. PHARMACY MADE AWARE.
[2019-01-15] MEDS ORDERED: DESMOPRESSIN 20 MCG in IV NS 0.9% 50 ML IV ONE (11:30)
[2019-01-15] MEDS: NYSTATIN/TRIAMCIN CREAM 15 GM TUBE TP SCH (12:40)
--- NOTE | 2019-01-15 12:40 | NUR ---
RN NOTES PATIENT REFUSING TO EAT AT THIS TIME. WILL HOLD INSULIN UNTIL PATIENT EATS. BS 172. DR. ONEILL PRESENT AND MADE AWARE OF BLEEDING ON NEW HD CATHETER SITE, NO NEW ORDER, PER MD, PLACE A SANDBAG, AND DON'T REMOVE RIGHT GROIN HD CATHETER YET.
[2019-01-15] MEDS ORDERED: K PHOS NEUTRAL 250 MG TABLET PO ONE (13:00)
--- NOTE | 2019-01-15 14:59 | NUR ---
RN NOTES PATIENT STILL NOTED WITH SATURATED DRESSING, RE-DRESSED WITH 4X4 GAUZE AND PRESSURE TAPE, AND THEN SANDBAG ON TOP. PAGED DR. DSOUZA AND RECEIVED A CALL BACK, INFORMED OF SITUATION, PER DR. DSOUZA, CONTINUE TO MONITOR, SANDBAG AND RE-DRESSING, MD WILL COME BY AT 5PM TO SEE THE PATIENT AND ADDRESS THE BLEEDING PROBLEM ON THE HD CATHETER SITE.
[2019-01-15] MEDS ORDERED: MORPHINE SULFATE INJ 2 MG/ML DISP.SYRIN IV STA (16:33)
--- NOTE | 2019-01-15 16:58 | NUR ---
RN NOTES PATIENT SEEN BY DR. DSOUZA, EXAMINED RIGHT CHEST HD CATH, PATIENT STILL BLEEDING. MD GATHERED SUPPLIES AND MD FIXED THE BLEEDING SITE AROUND THE HD CATHETER SITE. THEN PAINTED WITH BETADINE, COVERED WITH 4X4 AND PRESSURE TAPE. PATIENT TOLERATED PROCEDURE WELL. GIVEN MORPHINE I PRIOR TO PROCEDURE. BLEEDING STOPPED. PATIENT'S VS STABLE. KEPT COMFORTABLE. NEEDS ATTENDED. CALL LIGHT WITHINR EACH, WILL CONTINUE TO MONITOR. WOUND TREATMENT RENDERED.
[2019-01-15] MEDS: INSULIN REGULAR, HUMAN 100 UNIT/ML 3 ML VIAL SQ PRN (17:42)
[2019-01-15] MEDS: INSULIN GLARGINE, 100 UNIT/ML CARTRIDGE SQ SCH (17:57)
--- NOTE | 2019-01-15 18:59 | NUR ---
RN NOTES PATIENT A/OX3, NO DISTRESS NOTED, NO BLEEDING ON HD CATH SITE NOTED. PATIENT IN STABLE CONDITION. NO S/SX OF HYPO/HYPERGLYCEMIA NOTED. WOUND TREATMENT RENDERED, GABI HEELS OFFLOADED. NEEDS ATTENDED, CALL LIGHT WITHIN REACH, WILL ENDORSE TO CLERICAL ADMINISTRATIVE ASSISTANT FOR JOE.
--- NOTE | 2019-01-15 20:00 | NUR ---
RN MS OPENING NOTES RECEIVED PT IN BED, AWAKE ALERT ORIENTED X3, BREATHING EVEN AND UNLABORED ON 2L O2 VIA NC, NO SOB COUGH OR CONGESTIONS, NO COMPLAINT OF PAIN OR DISCOMFORT AT THIS TIME. R UA PICC LINE IN PLACE, RU CHEST AND L FEMORAL HD CATHS. DRESSINGS DRY AND INTACT WILL CONTINUE TO MONITOR. BED IN LOWEST LOCKED POSITION, CALL LIGHT WITHIN REACH AT ALL TIMES, RT GIVING BREATHING TX. WILL CONTINUE TO MONITOR FREQUENTLY
[2019-01-15] MEDS: ATORVASTATIN 40 MG TABLET PO SCH (21:38)
[2019-01-15] MEDS: *INSULIN REGULAR(HUMULIN R)HUM 100 UNIT/ML VIAL SQ PRN (21:50)
[2019-01-16] MEDS: NYSTATIN/TRIAMCIN CREAM 15 GM TUBE TP SCH ×3 (01:11→22:39)
[2019-01-16] MEDS: IPRATROPIUM NEB FS 0.5 MG/2.5 ML AMPUL.NEB NEB SCH ×4 (02:19→19:55)
[2019-01-16] MEDS: ALBUTEROL HALF STRENGTH 1.25 MG/3 ML VIAL.NEB NEB SCH ×4 (02:19→19:50)
[2019-01-16] MEDS: HYDROCODONE/APAP 5/325MG 1 EACH TABLET PO PRN (02:43)
[2019-01-16] MEDS: AMOX/CLAVULANATE 250 MG TABLET PO SCH ×2 (05:52→18:10)
--- NOTE | 2019-01-16 06:19 | NUR ---
RN MS CLOSING NOTES PT REMAINS IN BED, AWAKE ALERT ORIENTED X3, BREATHING EVEN AND UNLABORED ON 2L O2 VIA NC, NO SOB COUGH OR CONGESTIONS, NO COMPLAINT OF PAIN OR DISCOMFORT AT THIS TIME. R UA PICC LINE IN PLACE, RU CHEST AND L FEMORAL HD CATHS. DRESSINGS DRY AND INTACT NO SIGNS OF ACTIVE BLEEDING DURING SHIFT. BED IN LOWEST LOCKED POSITION, CALL LIGHT WITHIN REACH AT ALL TIMES. WILL ENDORSE TO DAY NURSE FOR JOE.
[2019-01-16] MEDS: BLOOD SUGAR DIAGNOSTIC 1 EACH STRIP VI SCH ×4 (06:30→22:25)
[2019-01-16] MEDS: INSULIN REGULAR, HUMAN 100 UNIT/ML 3 ML VIAL SQ PRN ×3 (06:31→17:05)
[2019-01-16 06:57] LABS: BASOPHILS # (AUTO) 0.1 /CMM (0.0-0.2); BASOPHILS % (AUTO) 0.7 % (0.0-2.0); EOSINOPHILS % (AUTO) 7.5 % (0.0-6.0); LYMPHOCYTES # (AUTO) 3.1 /CMM (0.8-4.8); LYMPHOCYTES % (AUTO) 24.6 % (20.0-44.0); MEAN CORPUSCULAR HGB CONC 34 g/dl (31.0-36.0); MEAN CORPUSCULAR VOLUME 87 fL (80-96); MONOCYTES # (AUTO) 1.2 /CMM (0.1-1.30); MONOCYTES % (AUTO) 9.3 % (2.0-12.0); NEUTROPHILS # (AUTO) 7.3 /CMM (1.8-8.9); NEUTROPHILS % (AUTO) 57.9 % (43.0-81.0); PLATELET COUNT (AUTO) 141 /CMM (150-450); RED BLOOD CELL COUNT(AUTO) 2.33 MIL/uL (4.5-6.0); WHITE BLOOD COUNT (AUTO) 12.6 K/uL (4.3-11.0)
[2019-01-16 07:20] LABS: HEMOGLOBIN 6.8 g/dL (13.5-17.5)
[2019-01-16 07:21] LABS: CALCIUM, SERUM 8.3 mg/dL (8.5-10.1); HEMATOCRIT 20 % (39-51); MAGNESIUM 1.9 mg/dL (1.8-2.4); PHOSPHORUS 3.5 mg/dL (2.5-4.9); POTASSIUM 3.9 mmol/L (3.5-5.1)
[2019-01-16 07:36] LABS: EOSINOPHILS % (MANUAL) 9 % (0-4); LYMPHOCYTES % (MANUAL) 15 % (16-48); MONOCYTES % (MANUAL) 11 % (0-11.0); NEUTROPHILS % (MANUAL) 65 (42-76)
--- NOTE | 2019-01-16 07:38 | NUR ---
H/H CRITICAL : WILL INFORM
[2019-01-16 08:00] VITALS: BP 139/68
[2019-01-16] MEDS: ARIPIPRAZOLE 5 MG TABLET PO SCH (08:50)
[2019-01-16] MEDS: CARVEDILOL 6.25 MG TABLET PO SCH ×2 (08:51→16:36)
[2019-01-16] MEDS: ASPIRIN 81 MG TAB.CHEW PO SCH (08:52)
--- NOTE | 2019-01-16 11:20 | NUR ---
VITALIY CHARLES H/H 6.05/26 CONFIRMED SECOND TIME.
[2019-01-16 11:31] LABS: HEMOGLOBIN 6.8 g/dL (13.5-17.5)
--- NOTE | 2019-01-16 12:00 | NUR ---
RECEIVED ORDER FROM TO INFUSE 1 UNIT RBC WITH HEMODIALYSES TODAY
--- NOTE | 2019-01-16 15:00 | NUR ---
TEMPORARY CATHETER IN GROIN REMOVED BY DIALYSIS NURSE: NO BLEEDING NOTED.
[2019-01-16 16:00] VITALS: BP 132/70
[2019-01-16 17:44] VITALS: BP 123/64
--- NOTE | 2019-01-16 17:49 | NUR ---
1 UNIT BLOOD TRANSFUSION STARTED WITH HD. VS ARE STABLE , PT AFEBRILE, NO ADVERSE REACTION NOTED
[2019-01-16] MEDS: INSULIN GLARGINE, 100 UNIT/ML CARTRIDGE SQ SCH (18:17)
--- NOTE | 2019-01-16 18:38 | NUR ---
BLOOD TRANSFUSION 1 UNIT FINISHED WITH NO COMPLICATIONS. VS ARE STABLE , PT ON ROOM AIR. NO SOB , NO ACUTE DISTRESS NOTED. HD NURSE AT BEDSIDE. SAFETY PRECAUTIONS OBSERVED. WILL ENDORSE TO NEXT SHIFT FOR JOE.
[2019-01-16] MEDS: diphenhydrAMINE HCL 25 MG CAPSULE PO PRN (18:47)
--- NOTE | 2019-01-16 19:10 | NUR ---
MS RN INITIAL NOTES Patient in bed, awake. Dialysis treatment in progress, patient appears comfortable, denies pain, on supplemental oxygen at 2L NC, denies shortness of breath. Maintained safety, will cont to monitor.
[2019-01-16] MEDS: ALBUTEROL FS 2.5 MG/3 ML VIAL.NEB NEB PRN (19:50)
[2019-01-16 20:00] VITALS: BP 119/68
--- NOTE | 2019-01-16 20:10 | NUR ---
Dialysis treatment done with 1500ml fluid output per dialysis nurse, patient tolerated procedure well with BP 116/63 P63.
[2019-01-16] MEDS: *INSULIN REGULAR(HUMULIN R)HUM 100 UNIT/ML VIAL SQ PRN (22:25)
[2019-01-16] MEDS: ATORVASTATIN 40 MG TABLET PO SCH (22:26)
[2019-01-16] MEDS: ACETAMINOPHEN 325 MG TABLET PO PRN (22:38)
--- NOTE | 2019-01-16 23:30 | NUR ---
Wound dressing changed done to left foot, patient tolerated well.
[2019-01-17] MEDS: IPRATROPIUM NEB FS 0.5 MG/2.5 ML AMPUL.NEB NEB SCH ×3 (01:51→12:50)
[2019-01-17] MEDS: ALBUTEROL HALF STRENGTH 1.25 MG/3 ML VIAL.NEB NEB SCH ×3 (01:51→12:51)
[2019-01-17] MEDS: AMOX/CLAVULANATE 250 MG TABLET PO SCH (06:01)
--- NOTE | 2019-01-17 06:14 | NUR ---
MS RN CLOSING NOTES Patient in bed, A/O X 3 forgetful at times. On supplemental oxygen at 2L NC, denies shortness breath at rest and with exertion. PASHA PICC line intact patent and intact. Right IJ perma cath dressing C/D/I no bleeding. PRN Tylenol given for right foot pain with relief. On PO antibiotic as scheduled, afebrile. No BM this shift, oliguric. No acute events overnight. Maintained safety, will endorse to oncoming RN.
[2019-01-17] MEDS: BLOOD SUGAR DIAGNOSTIC 1 EACH STRIP VI SCH ×3 (06:42→17:22)
[2019-01-17] MEDS: INSULIN REGULAR, HUMAN 100 UNIT/ML 3 ML VIAL SQ PRN ×3 (06:43→17:40)
[2019-01-17 07:18] LABS: BASOPHILS # (AUTO) 0.1 /CMM (0.0-0.2); BASOPHILS % (AUTO) 0.5 % (0.0-2.0); EOSINOPHILS % (AUTO) 8.5 % (0.0-6.0); HEMATOCRIT 26 % (39-51); HEMOGLOBIN 8.9 g/dL (13.5-17.5); LYMPHOCYTES # (AUTO) 2.6 /CMM (0.8-4.8); LYMPHOCYTES % (AUTO) 22.6 % (20.0-44.0); MEAN CORPUSCULAR HGB CONC 34 g/dl (31.0-36.0); MEAN CORPUSCULAR VOLUME 87 fL (80-96); MONOCYTES % (AUTO) 8.6 % (2.0-12.0); NEUTROPHILS # (AUTO) 6.8 /CMM (1.8-8.9); NEUTROPHILS % (AUTO) 59.8 % (43.0-81.0); PLATELET COUNT (AUTO) 152 /CMM (150-450); RED BLOOD CELL COUNT(AUTO) 2.99 MIL/uL (4.5-6.0); WHITE BLOOD COUNT (AUTO) 11.4 K/uL (4.3-11.0)
[2019-01-17 07:23] LABS: CALCIUM, SERUM 8.2 mg/dL (8.5-10.1); CREATININE 3.1 mg/dL (0.6-1.3); POTASSIUM 3.4 mmol/L (3.5-5.1)
--- NOTE | 2019-01-17 07:30 | NUR ---
Patient in bed, A/O X 3. On O2 at 2L via NC, denies shortness breath. PASHA PICC line patent and intact. Right IJ perma cath dressing C/D/I no bleeding.Safety precautions in place. Will continue to monitor
[2019-01-17 08:00] VITALS: BP 145/87
[2019-01-17] MEDS: ASPIRIN 81 MG TAB.CHEW PO SCH (09:13)
[2019-01-17] MEDS: ARIPIPRAZOLE 5 MG TABLET PO SCH (09:13)
[2019-01-17] MEDS: CARVEDILOL 6.25 MG TABLET PO SCH (09:14)
[2019-01-17] MEDS: NYSTATIN/TRIAMCIN CREAM 15 GM TUBE TP SCH (11:52)
[2019-01-17] MEDS ORDERED: Insulin Glargine,Hum SQ (12:15)
[2019-01-17] MEDS ORDERED: Amox/Clavulanate PO (12:15)
[2019-01-17] MEDS ORDERED: NYST15CR2 TP (12:15)
[2019-01-17] MEDS: HYDROCODONE/APAP 5/325MG 1 EACH TABLET PO PRN (15:08)
[2019-01-17 16:00] VITALS: BP 121/76
--- NOTE | 2019-01-17 16:20 | NUR ---
report called to sophia altamirano from [facility]
[2019-01-17] MEDS: INSULIN GLARGINE, 100 UNIT/ML CARTRIDGE SQ SCH (18:07)
--- NOTE | 2019-01-17 18:10 | NUR ---
patient picked up by ambulance for transfer to [facility]. Patient cleared for d/c by . Pt awake a/o x4 Mauritian speaking, understands Burundian. VS are stable and within normal range on room air, no distress , no SOB , denies pain. Multiple skin issues: all d/c pictures taken and placed to patients's chart. Discharge instructions and education provided to patient: patient verbalized understanding. HD cath dressing intact and patent. Central line on right upper arm removed with no bleeding. Wound care done prior to d/c , dressing intact and clean. Regular insulin administrated per sliding scale. Scheduled Lantus for 1800 administrated. Patient ate dinner prior to discharge. All d/c instructions and valuable form sighed by patient. All belongings with the pt, including cell phone and smelter charger. Patient left in stable condition
[2019-01-18] MEDS ORDERED: EPOETIN ALFA (10,000 UNIT) 10,000 UNIT/ML VIAL IV ONE (11:00)
== END 2019-01-17 18:25 | DRG 871 ==
LOC: ER 14:54 → TELE 17:14 → MED 01-02 12:35
PROVIDERS: ADMIT Nurse Practitioner Acute Care; ATTEND Hospitalist
PROC: 5A1D70Z Performance of Urinary Filtration, Intermittent, Less than 6 Hours Per Day (ICD-10-PCS; 2019-01-07)
PROC: 5A1D70Z Performance of Urinary Filtration, Intermittent, Less than 6 Hours Per Day (ICD-10-PCS; 2019-01-09)
PROC: 5A1D70Z Performance of Urinary Filtration, Intermittent, Less than 6 Hours Per Day (ICD-10-PCS; 2019-01-10)
PROC: 5A1D70Z Performance of Urinary Filtration, Intermittent, Less than 6 Hours Per Day (ICD-10-PCS; 2019-01-11)
PROC: 5A1D70Z Performance of Urinary Filtration, Intermittent, Less than 6 Hours Per Day (ICD-10-PCS; 2019-01-13)
PROC: 5A1D70Z Performance of Urinary Filtration, Intermittent, Less than 6 Hours Per Day (ICD-10-PCS; 2019-01-14)
PROC: 0JH63XZ Insertion of Tunneled Vascular Access Device into Chest Subcutaneous Tissue and Fascia, Percutaneous Approach (ICD-10-PCS; principal; 2019-01-15)
PROC: 02HV33Z Insertion of Infusion Device into Superior Vena Cava, Percutaneous Approach (ICD-10-PCS; 2019-01-15)
PROC: B518YZA Fluoroscopy of Superior Vena Cava using Other Contrast, Guidance (ICD-10-PCS; 2019-01-15)
PROC: 30233N1 Transfusion of Nonautologous Red Blood Cells into Peripheral Vein, Percutaneous Approach (ICD-10-PCS; 2019-01-16)
PROC: 5A1D70Z Performance of Urinary Filtration, Intermittent, Less than 6 Hours Per Day (ICD-10-PCS; 2019-01-16)
DX: A41.9 Sepsis, unspecified organism (principal); N17.0 Acute kidney failure with tubular necrosis; I50.33 Acute on chronic diastolic (congestive) heart failure; E43 Unspecified severe protein-calorie malnutrition; G93.41 Metabolic encephalopathy; J96.01 Acute respiratory failure with hypoxia; J15.9 Unspecified bacterial pneumonia; N18.6 End stage renal disease; E11.52 Type 2 diabetes mellitus with diabetic peripheral angiopathy with gangrene; I69.354 Hemiplegia and hemiparesis following cerebral infarction affecting left non-dominant side; F20.0 Paranoid schizophrenia; E87.1 Hypo-osmolality and hyponatremia; J90 Pleural effusion, not elsewhere classified; M86.8X7 Other osteomyelitis, ankle and foot; L97.518 Non-pressure chronic ulcer of other part of right foot with other specified severity; I96 Gangrene, not elsewhere classified; I13.2 Hypertensive heart and chronic kidney disease with heart failure and with stage 5 chronic kidney disease, or end stage renal disease; D72.829 Elevated white blood cell count, unspecified; E87.6 Hypokalemia; E78.5 Hyperlipidemia, unspecified; E11.621 Type 2 diabetes mellitus with foot ulcer; E11.65 Type 2 diabetes mellitus with hyperglycemia; D47.3 Essential (hemorrhagic) thrombocythemia; I25.10 Atherosclerotic heart disease of native coronary artery without angina pectoris; L30.4 Erythema intertrigo; Z66 Do not resuscitate; Z79.4 Long term (current) use of insulin; Z87.891 Personal history of nicotine dependence; Z95.1 Presence of aortocoronary bypass graft; Z89.411 Acquired absence of right great toe; Z98.62 Peripheral vascular angioplasty status; E11.69 Type 2 diabetes mellitus with other specified complication; R19.5 Other fecal abnormalities; E88.09 Other disorders of plasma-protein metabolism, not elsewhere classified; Z68.21 Body mass index [BMI] 21.0-21.9, adult; D63.8 Anemia in other chronic diseases classified elsewhere; I34.0 Nonrheumatic mitral (valve) insufficiency; Z79.84 Long term (current) use of oral hypoglycemic drugs; Z79.82 Long term (current) use of aspirin; E11.22 Type 2 diabetes mellitus with diabetic chronic kidney disease; N14.1 Nephropathy induced by other drugs, medicaments and biological substances; T50.8X5A Adverse effect of diagnostic agents, initial encounter; Y92.129 Unspecified place in nursing home as the place of occurrence of the external cause
CPT/HCPCS: 36415; 36600; 71045-TC; 73630-TC; 76770-TC; 80048-TC; 80053-TC; 80061-TC; 80074; 80076-TC; 80202-TC; 81000-TC; 82272-TC; 82550-TC; 82803-TC; 82962-TC; 83540-TC; 83605-TC; 83690-TC; 83735-TC; 83880; 84100-TC; 84443-TC; 84484-TC; 85025-TC; 85027-TC; 85730-TC; 86850-TC; 86921-TC; 87070-TC; 87081-TC; 87186-TC; 90935-TC; 93307-TC; 94640-TC; 94799-TC; A4216; A4349; A6253; A6402; A6403; A6407; C1750; G0378; J0690; J0692; J0885; J1644; J1815; J1940; J2020; J2060; J2250; J2270; J2543; J2597; J2704; J2765; J3010; J3370; J3475; J3480; J3490; J7030; J7040; J7050; J7060; P9016-BL; Q0163

== ENCOUNTER 2019-10-28 14:51 | Inpatient (IN) | payer MEDICARE, OTHER ==
[~2019-10-28] VITALS: Ht 165.1 cm; Wt 70.3 kg
[~2019-10-28 14:51] MED LIST: ACET-868 PO; ARIP10TA9 PO; ASCO-352 PO; ASPI-1169 PO; ATOR40TA PO; Amox/Clavulanate PO; BISA10SU11 RC; CARV6.252 PO; CLON0.1T PO; CLOP75TA15 PO; DIPH25CA51 PO; GLIP5TAB13 PO; HYDR-3974 PO; INSU100V27 SQ; Insulin Glargine,Hum SQ; MAGN400O6 PO; MELA3TAB41 PO; NA P133E RC; NYST15CR2 TP; ZINC1CAP2 PO
[2019-10-28] MEDS ORDERED: GLUC1KIT IM (15:47)
[2019-10-28] MEDS ORDERED: TRIA15OI2 TP (15:47)
[2019-10-28] MEDS ORDERED: NAPH1POW3 PO (15:47)
[2019-10-28] MEDS ORDERED: DEXT50DI8 IV (15:47)
[2019-10-28] MEDS ORDERED: SENN-261 PO (15:47)
[2019-10-28] MEDS ORDERED: PANT40TA2 PO (15:47)
[2019-10-28] MEDS ORDERED: LORA10TA7 PO (15:47)
[2019-10-28] MEDS ORDERED: FOLI0.8T2 PO (15:47)
[2019-10-28] MEDS ORDERED: IPRA0.2S9 IH (15:47)
[2019-10-28] MEDS ORDERED: AMIN30LI2 PO (15:47)
[2019-10-28] MEDS ORDERED: HYDR-3976 PO (15:47)
[2019-10-28] MEDS ORDERED: INSU100V10 SQ (15:47)
[2019-10-28] MEDS ORDERED: POLY17PO4 PO (15:47)
[2019-10-28] MEDS ORDERED: NITR0.4T48 SL (15:47)
[2019-10-28] MEDS ORDERED: INSU100V11 SQ (15:47)
[2019-10-28] MEDS ORDERED: ACET-2605 PO (15:47)
[2019-10-28] MEDS ORDERED: ALBU2.5V38 IH (15:47)
[2019-10-28 15:48] LABS: BASOPHILS % (AUTO) 0.5 % (0.0-2.0); EOSINOPHILS % (AUTO) 4.8 % (0.0-6.0); HEMATOCRIT 36 % (39-51); HEMOGLOBIN 11.7 g/dL (13.5-17.5); LYMPHOCYTES # (AUTO) 2.1 /CMM (0.8-4.8); LYMPHOCYTES % (AUTO) 21.9 % (20.0-44.0); MEAN CORPUSCULAR HGB CONC 33 g/dl (31.0-36.0); MEAN CORPUSCULAR VOLUME 90 fL (80-96); MONOCYTES # (AUTO) 0.8 /CMM (0.1-1.30); MONOCYTES % (AUTO) 8.7 % (2.0-12.0); NEUTROPHILS # (AUTO) 6.3 /CMM (1.8-8.9); NEUTROPHILS % (AUTO) 64.1 % (43.0-81.0); PLATELET COUNT (AUTO) 137 /CMM (150-450); RED BLOOD CELL COUNT(AUTO) 3.97 MIL/uL (4.5-6.0); WHITE BLOOD COUNT (AUTO) 9.8 K/uL (4.3-11.0)
--- NOTE | 2019-10-28 16:00 | NUR ---
patient bibra from [facility], c/o seizure episode, unknown duration. On room air, breathing evenly and unlabored. connected to the monitor and pulse ox. Kept comfortable, will continue to monitor accordingly.
[2019-10-28 16:02] LABS: ALBUMIN 3.2 g/dL (3.4-5.0); BILIRUBIN,DIRECT 0.1 mg/dL (0.0-0.2); BILIRUBIN,TOTAL 0.5 mg/dL (0.2-1.0); CALCIUM, SERUM 9.1 mg/dL (8.5-10.1); CREATININE 2.6 mg/dL (0.6-1.3); POTASSIUM 4.1 mmol/L (3.5-5.1); TOTAL PROTEIN, SERUM 6.8 g/dL (6.4-8.2)
--- NOTE | 2019-10-28 16:07 | NUR ---
wheeled patient via gurney to ct scan.
--- NOTE | 2019-10-28 16:14 | NUR ---
patient caem back from ct
[2019-10-28] MEDS ORDERED: MAGNESIUM HYDROXIDE 30 ML UDC PO PRN (18:30)
[2019-10-28] MEDS ORDERED: ONDANSETRON HCL/PF 4 MG/2 ML VIAL IVP PRN (18:30)
[2019-10-28] MEDS ORDERED: MORPHINE SULFATE INJ 2 MG/ML DISP.SYRIN IV PRN (18:30)
[2019-10-28] MEDS ORDERED: MAG HYDROX/AL HYDROX/SIMETH 30 ML UDC PO PRN (18:30)
[2019-10-28] MEDS ORDERED: ACETAMINOPHEN 325 MG TABLET PO PRN (18:30)
[2019-10-28] MEDS ORDERED: DEXTROSE 50%-WATER 50 ML DISP.SYRIN IV PRN (19:00)
--- NOTE | 2019-10-28 19:18 | NUR ---
report given to Latasha LAKE for thiago.
[2019-10-28] MEDS ORDERED: BISACODYL SUPP (10 MG) 10 MG/SUPP.RECT SUPP.RECT RC PRN (19:30)
[2019-10-28] MEDS ORDERED: POLYETHYLENE GLYCOL 3350 17 GM POWD.PACK PO PRN (19:30)
[2019-10-28] MEDS ORDERED: ALBUTEROL FS 2.5 MG/3 ML VIAL.NEB IH PRN (19:30)
[2019-10-28] MEDS ORDERED: CLONIDINE HCL 0.1 MG TABLET PO PRN (19:30)
[2019-10-28] MEDS ORDERED: diphenhydrAMINE HCL 25 MG CAPSULE PO PRN (19:30)
[2019-10-28] MEDS ORDERED: IPRATROPIUM NEB FS 0.5 MG/2.5 ML AMPUL.NEB IH PRN (19:30)
--- NOTE | 2019-10-28 20:00 | NUR ---
ULTRASUOND AT BEDSIDE
--- NOTE | 2019-10-28 20:10 | NUR ---
PER RN FROM 3W: BED 320-2 NOT READY FORM PT. RN WILL CALL ONCE BED IS READY
--- NOTE | 2019-10-28 20:36 | NUR ---
CALLED TO GIVE REPORT. NURSE IS NOT ANSWERING. CALL BACK AGAIN PER DENIS
--- NOTE | 2019-10-28 21:00 | NUR ---
POLICY CANCELLATION CLERK ADMITTING NOTES RECEIVED REPORT FROM ALEKSANDRA MONROY. PATIENT WHEELED TO UNIT VIA GURNEY; PATIENT AWAKE, A/O X2; BREATHING EVEN AND UNLABORED; NO S/S OF ACUTE RESPIRATORY DISTRESS NOTED; TOLERATING RA WELL; SCARS NOTED IN CHEST AND R LEG AND L LEG SCARS NOTED; L TOE WOUND NOTED; R GREATER TOE AMPUTATION NOTED; SACRAL REDNESS NOTED; ALL PHOTOS TAKEN AND FILED IN PATIENT BINDER; TELE MONITOR INITIATED; MONITOR READS SR WITH 1ST DEGREE AV BLOCK, BBBS AND AND PVCS; HR 65; PATIENT DENIES ANY PAIN; R AC #18 FLUSHING WELL, NO S/S OF ACUTE REDNESS NOTED; SAFETY PRECAUTIONS IN PLACE, BED LOCKED IN LOW POSITION, BILATERAL UPPER SIDE RAILS X2; CALL LIGHT WITHIN EASY REACH; WILL CONTINUE TO MONITOR.
--- NOTE | 2019-10-28 21:10 | NUR ---
REPORT GIVEN TO ALEKSANDRA LOVELACE
[2019-10-28 21:30] VITALS: BP 141/80
[2019-10-28 22:00] VITALS: BP 141/80
[2019-10-28] MEDS: INSULIN REGULAR, HUMAN 100 UNIT/ML 3 ML VIAL SQ PRN (22:14)
[2019-10-28] MEDS: INSULIN GLARGINE, 100 UNIT/ML CARTRIDGE SQ SCH (22:15)
[2019-10-28] MEDS: LEVETIRACETAM (500MG) 1,000 MG in IV NS 0.9% 100 ML IV SCH (23:01)
[2019-10-28] MEDS: ATORVASTATIN 40 MG TABLET PO SCH (23:15)
[2019-10-28] MEDS: BLOOD SUGAR DIAGNOSTIC 1 EACH STRIP IN SCH (23:20)
[2019-10-29] VITALS: BP 100/58
[2019-10-29 04:00] VITALS: BP 104/72
[2019-10-29] MEDS: INSULIN REGULAR, HUMAN 100 UNIT/ML 3 ML VIAL SQ PRN ×4 (06:00→22:05)
--- NOTE | 2019-10-29 06:12 | NUR ---
LOT BOSS CLOSING NOTES PATIENT RESTING IN BED COMFORTABLY; TOLERATING RA WELL, NO S/S OF ACUTE RESPIRATORY DISTRESS NOTED; BREATHING EVEN AND UNLABORED; TELE MONITOR READS SR 1ST DEGREE BLOCK WITH BBB AND PVCS, HR 73S. PERMA CATH R CHEST INTACT; NO S/S OF REDNESS; R AC #18 SL INTACT AND PATENT, FLUSHING WELL; NO S/S OF REDNESS OR INFILTRATION; BED LOCKED IN LOW POSITION, SAFETY AND SEIZURE PRECAUTIONS IN PLACE; CALL LIGHT WITHIN REACH, ALL NEEDS ATTENDED TO. WILL ENDORSE CONTINUITY OF CARE TO ONCOMING NURSE.
--- NOTE | 2019-10-29 07:15 | NUR ---
PIT SHOVELER OPENING NOTES RECEIVED PT IN BED, ASLEEP, EASILY AROUSED, A/O X1-2. PT TOLERATING RA, WITH NO ACUTE RESPIRATORY DISTRESS NOTED. PT DENIES PAIN OR DISCOMFORT AT THIS TIME. PT DENIES ANY CONCERNS OR QUESTIONS AT THE MOMENT WELL. ON TELEMONITORING WITH SR 73, WITH OCCASIONAL 1ST DEGREE AVB, BBB AND PVCS; PT DENIES ANY CHEST PAIN AT THIS TIME. PIV LFA G18, FLUSHED WITH NS, INTACT AND OPERATIONAL. PT KEPT COMFORTABLE IN BED. CALL LIGHT KEPT WITHIN REACH. PT'S BED IN LOWEST, LOCKED POSITION WITH SRX3. WILL CONTINUE PLAN OF CARE.
[2019-10-29 07:56] LABS: BASOPHILS # (AUTO) 0.1 /CMM (0.0-0.2); BASOPHILS % (AUTO) 0.7 % (0.0-2.0); HEMATOCRIT 34 % (39-51); HEMOGLOBIN 11.1 g/dL (13.5-17.5); LYMPHOCYTES # (AUTO) 2.9 /CMM (0.8-4.8); LYMPHOCYTES % (AUTO) 30.5 % (20.0-44.0); MEAN CORPUSCULAR HGB CONC 33 g/dl (31.0-36.0); MEAN CORPUSCULAR VOLUME 89 fL (80-96); MONOCYTES # (AUTO) 0.9 /CMM (0.1-1.30); NEUTROPHILS # (AUTO) 5.2 /CMM (1.8-8.9); NEUTROPHILS % (AUTO) 54.8 % (43.0-81.0); PLATELET COUNT (AUTO) 129 /CMM (150-450); RED BLOOD CELL COUNT(AUTO) 3.75 MIL/uL (4.5-6.0); WHITE BLOOD COUNT (AUTO) 9.6 K/uL (4.3-11.0)
[2019-10-29 08:00] VITALS: BP 138/76
[2019-10-29 08:10] LABS: CALCIUM, SERUM 8.8 mg/dL (8.5-10.1); CREATININE 2.7 mg/dL (0.6-1.3); MAGNESIUM 1.8 mg/dL (1.8-2.4); PHOSPHORUS 3.8 mg/dL (2.5-4.9)
[2019-10-29] MEDS: BLOOD SUGAR DIAGNOSTIC 1 EACH STRIP IN SCH ×4 (08:13→22:04)
[2019-10-29 08:17] LABS: THYROID STIMULATING HORMONE 1.33 uIU/mL (0.358-3.74)
[2019-10-29] MEDS: VIT B CMPLX 3/FA/VIT C/BIOTIN 1 TAB TABLET PO SCH (08:44)
[2019-10-29] MEDS: ASCORBIC ACID 500 MG TABLET PO SCH (08:44)
[2019-10-29] MEDS: ARIPIPRAZOLE 5 MG TABLET PO SCH (08:44)
[2019-10-29] MEDS: PANTOPRAZOLE 40 MG TABLET.DR PO SCH (08:44)
[2019-10-29] MEDS: LORATADINE 10 MG TABLET PO SCH (08:44)
[2019-10-29] MEDS: SENNOSIDES 8.6 MG TABLET PO SCH ×2 (08:44→17:27)
[2019-10-29] MEDS: ASPIRIN 81 MG TAB.CHEW PO SCH (08:44)
[2019-10-29] MEDS: CARVEDILOL 12.5 MG TABLET PO SCH ×2 (08:45→17:27)
[2019-10-29] MEDS: HYDROCODONE/APAP 5/325MG 1 EACH TABLET PO PRN (08:46)
[2019-10-29] MEDS: PROSOURCE / PROSTAT (PYXIS) 30 ML UDC PO SCH ×3 (09:09→17:27)
[2019-10-29] MEDS: LEVETIRACETAM (500MG) 1,000 MG in IV NS 0.9% 100 ML IV SCH ×2 (09:09→21:56)
[2019-10-29 16:00] VITALS: BP 116/63
--- NOTE | 2019-10-29 18:54 | NUR ---
BAND STRAIGHTENER CLOSING NOTES PT REMAINS IN BED, ASLEEP, EASILY AROUSED, A/O X1-2. PT TOLERATING RA, WITH NO ACUTE RESPIRATORY DISTRESS NOTED. PT DENIES PAIN OR DISCOMFORT AT THIS TIME. ON TELEMONITORING WITH SR 80, WITH OCCASIONAL 1ST DEGREE AVB, BBB AND PVCS; PT DENIES ANY CHEST PAIN AT THIS TIME. PIV LFA G18, FLUSHED WITH NS, INTACT AND OPERATIONAL. PT KEPT COMFORTABLE IN BED. ALL NEEDS AND CARE ATTENDED. CALL LIGHT KEPT WITHIN REACH. PT'S BED IN LOWEST, LOCKED POSITION WITH SRX3. WILL ENDORSE TO INCOMING ELEVATOR ADJUSTER NURSE FOR JOE.
--- NOTE | 2019-10-29 19:06 | NUR ---
CHANGE OF SHIFT REPORT Patient is awake, A/O x3. Sinus rhythm, occasional BBB. Left sided weakness, denies pain. Right chest Perma cath dressing clean and dry. Plan Hemodialysis today per report. Fall/seizure precaution maintained.
[2019-10-29 20:00] VITALS: BP 145/70
--- NOTE | 2019-10-29 21:25 | NUR ---
DIALYSIS Treatment hemodialysis done, patient tolerated well with BP 133/58 and 2L fluid output drained.
[2019-10-29] MEDS: INSULIN GLARGINE, 100 UNIT/ML CARTRIDGE SQ SCH (22:06)
[2019-10-29] MEDS: ATORVASTATIN 40 MG TABLET PO SCH (22:13)
[2019-10-30] VITALS (7 sets, daily range): BP systolic 75–151; BP diastolic 48–88
[2019-10-30] MEDS ORDERED: Z GUARD REMEDY 2 OZ OINT TP PRN (01:30)
--- NOTE | 2019-10-30 04:44 | NUR ---
CLARIFICATION VS BP 143/70; PULSE 65; RESP 19; TEMP 98F; O2 SAT 98%
--- NOTE | 2019-10-30 06:17 | NUR ---
END OF SHIFT REPORT Patient in bed, A/O x3 Forgetful. Sinus rhythm with BBB in the Tele monitor. Dialysis treatment 10/29/19 tolerated well. Hal LE duplex arterial negative for Stenosis, heels offload at all times. Reposition with 1 person assist, denies pain. Fall/skin precaution maintained. Will endorse to Oncoming RN.
[2019-10-30] MEDS: BLOOD SUGAR DIAGNOSTIC 1 EACH STRIP IN SCH ×4 (06:36→22:22)
[2019-10-30] MEDS: INSULIN REGULAR, HUMAN 100 UNIT/ML 3 ML VIAL SQ PRN ×4 (06:38→22:25)
--- NOTE | 2019-10-30 07:30 | NUR ---
FINE WIRE DRAWER OPENING NOTES RECEIVED PT IN BED, ASLEEP, EASILY AROUSED, A/O X2. PT TOLERATING RA, WITH NO ACUTE RESPIRATORY DISTRESS NOTED. PT DENIES PAIN OR DISCOMFORT AT THIS TIME. PT DENIES ANY CONCERNS OR QUESTIONS AT THE MOMENT WELL. ON TELEMONITORING WITH SB 57 WITH BBB, PT DENIES ANY CHEST PAIN AT THIS TIME. PIV LFA G18, FLUSHED WITH NS, INTACT AND OPERATIONAL. PT KEPT COMFORTABLE IN BED. CALL LIGHT KEPT WITHIN REACH. PT'S BED IN LOWEST, LOCKED POSITION WITH SRX3. WILL CONTINUE PLAN OF CARE.
--- NOTE | 2019-10-30 07:35 | NUR ---
TROLLEY WIRE INSTALLER OPENING NOTES RECEIVED PT IN BED, AWAKE. A/O X4. PT TOLERATING RA, WITH NO ACUTE RESPIRATORY DISTRESS NOTED. PT STATED 8/10 PAIN LEVEL AND REQUESTING FOR PRN DILAUDID 1MG SQ. PT CONCERN TO HAVE PAIN MEDICINES TO BE GIVEN TO HER EVERY 3HOURS FOR PHYSICAL THERAPY PREPARATION. PT ON TELEMONITORING WITH SR 93. PIV TO RAC G20, FLUSHED WITH NS, INTACT AND OPERATIONAL. PT KEPT COMFORTABLE IN BED. CALL LIGHT KEPT WITHIN REACH. PT'S BED IN LOWEST, LOCKED POSITION WITH SRX3. WILL CONTINUE PLAN OF CARE. Addendum: 10/30/19 at 1327 by JONANA AUSTIN RN WRONG PATIENT. DISREGARD THIS NOTE.
[2019-10-30] MEDS: PANTOPRAZOLE 40 MG TABLET.DR PO SCH (08:42)
[2019-10-30] MEDS: ARIPIPRAZOLE 5 MG TABLET PO SCH (08:42)
[2019-10-30] MEDS: ASPIRIN 81 MG TAB.CHEW PO SCH (08:42)
[2019-10-30] MEDS: SENNOSIDES 8.6 MG TABLET PO SCH ×2 (08:42→16:39)
[2019-10-30] MEDS: ASCORBIC ACID 500 MG TABLET PO SCH (08:42)
[2019-10-30] MEDS: LORATADINE 10 MG TABLET PO SCH (08:42)
[2019-10-30] MEDS: CARVEDILOL 12.5 MG TABLET PO SCH ×2 (08:43→16:39)
[2019-10-30] MEDS: VIT B CMPLX 3/FA/VIT C/BIOTIN 1 TAB TABLET PO SCH (08:44)
[2019-10-30] MEDS: PROSOURCE / PROSTAT (PYXIS) 30 ML UDC PO SCH ×3 (08:44→16:39)
[2019-10-30 08:55] LABS: CALCIUM, SERUM 8.7 mg/dL (8.5-10.1); CREATININE 2.3 mg/dL (0.6-1.3); POTASSIUM 4.4 mmol/L (3.5-5.1)
[2019-10-30] MEDS: SILVER SULFADIAZINE 50 GM JAR TP SCH (09:28)
[2019-10-30] MEDS: LEVETIRACETAM (500MG) 1,000 MG in IV NS 0.9% 100 ML IV SCH (09:46)
[2019-10-30 10:07] LABS: BASOPHILS % (AUTO) 0.5 % (0.0-2.0); EOSINOPHILS % (AUTO) 5.5 % (0.0-6.0); HEMATOCRIT 36 % (39-51); HEMOGLOBIN 11.7 g/dL (13.5-17.5); LYMPHOCYTES # (AUTO) 2.9 /CMM (0.8-4.8); MEAN CORPUSCULAR HGB CONC 33 g/dl (31.0-36.0); MEAN CORPUSCULAR VOLUME 89 fL (80-96); MONOCYTES # (AUTO) 0.8 /CMM (0.1-1.30); MONOCYTES % (AUTO) 7.9 % (2.0-12.0); NEUTROPHILS # (AUTO) 5.8 /CMM (1.8-8.9); NEUTROPHILS % (AUTO) 57.1 % (43.0-81.0); PLATELET COUNT (AUTO) 111 /CMM (150-450); RED BLOOD CELL COUNT(AUTO) 3.98 MIL/uL (4.5-6.0); WHITE BLOOD COUNT (AUTO) 10.1 K/uL (4.3-11.0)
--- NOTE | 2019-10-30 10:14 | NUR ---
WOUND CARE CONSULT WOUND CARE RECEIVED CONSULT FOR WOUND. WOUND CARE WILL DEFER CONSULT AND TREATMENT PLAN TO PODIATRY TEAM DR HERNANDEZ WHO IS CURRENTLY FOLLOWING THIS PATIENT. PATIENT WITH FLORIN AT 16, ALL PRESSURE ULCER PREVENTION MEASURES ARE NOTED TO BE IN PLACE AT THIS TIME. WILL SEE PRN .
--- NOTE | 2019-10-30 12:42 | NUR ---
RN NOTES RN CONTACTED CHIEF [employer]PORT GUIDE. PROCEDURE WILL BE DONE THIS AFTERNOON AROUND 1630. PT MADE AWARE.
--- NOTE | 2019-10-30 14:40 | NUR ---
RN NOTES RECEIVED CALL FROM [facility]. PT POSITIVE FOR MRSA OF THE NARES. PT, CN/JR AND HOSPITALIST/NN MADE AWARE.
--- NOTE | 2019-10-30 17:15 | NUR ---
RN NOTES EEG WAS DONE, NO PRELIMINARY REPORT GIVEN BY TECH. REPORT WILL BE FORWARDED DIRECTLY TO DR PATTON. HOSPITALIST/NN AWARE.
--- NOTE | 2019-10-30 18:39 | NUR ---
MS RN CLOSING NOTES PT REMAINS IN BED, ASLEEP, EASILY AROUSED, A/O X2-3. PT TOLERATING RA, WITH NO ACUTE RESPIRATORY DISTRESS NOTED. PT DENIES PAIN OR DISCOMFORT AT THIS TIME. PIV LFA G18, FLUSHED WITH NS, INTACT AND OPERATIONAL. PT KEPT COMFORTABLE IN BED. ALL NEEDS AND CARE ATTENDED. CALL LIGHT KEPT WITHIN REACH. PT'S BED IN LOWEST, LOCKED POSITION WITH SRX3. WILL ENDORSE TO INCOMING NIGHT NURSE FOR JOE.
--- NOTE | 2019-10-30 19:11 | NUR ---
RN NOTES : RECEIVED LYING COMFORTABLY IN BED, A/O 2-3 WITH PERIODS OF FORGETFULNESS, B/B INCONTINENT,WITH LEFT SIDED WEAKNESS, BED BOUND, RAC G#20 INTACT AND PATENT. FALL,SAFETY, SEIZURE, ASPIRATION PRECAUTION OBSERVE, BED LOW AND LOCKED, CALL LIGHT KEPT WITHIN EASY REACH.[id number] PRECAUTION OBSERVED.RIGHT CHEST WALL-PERMACATH DRESSING DRY AND INTACT, HAD DIALYSIS YESTERDAY 10/29/19(2 LITERS/OUTPUT)
--- NOTE | 2019-10-30 20:42 | NUR ---
RN NOTES: NO COMPLAINTS OF PAIN OR DISCOMFORT, SNACK GIVEN, DUE MEDS GIVEN
--- NOTE | 2019-10-30 20:43 | NUR ---
RN NOTES: NO COMPLAINTS OF PAIN OR DISCOMFORT, SNACK GIVEN, DUE MEDS GIVEN
[2019-10-30] MEDS: LEVETIRACETAM (250 MG) 250 MG TABLET PO SCH (20:48)
[2019-10-30] MEDS: MUPIROCIN OINT 2% 22 GM TUBE SCH (20:48)
[2019-10-30] MEDS: ATORVASTATIN 40 MG TABLET PO SCH (22:22)
[2019-10-30] MEDS: INSULIN GLARGINE, 100 UNIT/ML CARTRIDGE SQ SCH (22:23)
--- NOTE | 2019-10-30 22:30 | NUR ---
RN NOTES: BLOOD SUGAR CHECK-217, LANTUS AND HUMULIN R(GIVEN PER SCALE), WILL CONTINUE TO MONITOR FOR SIGN OF HYPER/HYPOGLYCEMIA.
[2019-10-31] MEDS: BLOOD SUGAR DIAGNOSTIC 1 EACH STRIP IN SCH ×4 (06:48→21:30)
--- NOTE | 2019-10-31 07:36 | NUR ---
RN NOTES: NO SEIZURE THE ENTIRE SHIFT, FALL,SAFETY AND ASPIRATION PRECAUTION OBSERVED,PATIENT HAS NO COMPLAINTS IN THE NIGHT.KEPT ON CLOSE VISUAL CHECK, ENDORESED FOR CONTINUITY OF CARE.
--- NOTE | 2019-10-31 07:39 | NUR ---
MS RN OPENING NOTE PATIENT IN BED RESTING COMFORTABLY. PATIENT IN NO ACUTE DISTRESS. NO SOB NOTED. PATIENT BREATHING IS EVEN AND UNLABORED. PATIENT NEEDS AND CONCERNS ADDRESSED. SAFETY PRECAUTIONS IN PLACE. PATIENT BED IS LOCKED AND IN LOWEST POSITION. CALL LIGHT WITHIN REACH. WILL CONTINUE TO MONITOR.
[2019-10-31 08:00] VITALS: BP 125/86
[2019-10-31] MEDS: PANTOPRAZOLE 40 MG TABLET.DR PO SCH (08:26)
[2019-10-31] MEDS: INSULIN REGULAR, HUMAN 100 UNIT/ML 3 ML VIAL SQ PRN ×4 (08:27→21:34)
[2019-10-31] MEDS: ARIPIPRAZOLE 5 MG TABLET PO SCH (08:28)
[2019-10-31] MEDS: VIT B CMPLX 3/FA/VIT C/BIOTIN 1 TAB TABLET PO SCH (08:28)
[2019-10-31] MEDS: SENNOSIDES 8.6 MG TABLET PO SCH ×2 (08:28→16:40)
[2019-10-31] MEDS: ASCORBIC ACID 500 MG TABLET PO SCH (08:28)
[2019-10-31] MEDS: LORATADINE 10 MG TABLET PO SCH (08:28)
[2019-10-31] MEDS: LEVETIRACETAM (250 MG) 250 MG TABLET PO SCH ×2 (08:29→20:36)
[2019-10-31] MEDS: CARVEDILOL 12.5 MG TABLET PO SCH ×2 (08:29→16:40)
[2019-10-31] MEDS: ASPIRIN 81 MG TAB.CHEW PO SCH (08:29)
[2019-10-31] MEDS: PROSOURCE / PROSTAT (PYXIS) 30 ML UDC PO SCH ×3 (08:30→16:40)
[2019-10-31] MEDS: MUPIROCIN OINT 2% 22 GM TUBE SCH ×2 (08:31→21:00)
[2019-10-31] MEDS: SILVER SULFADIAZINE 50 GM JAR TP SCH (08:34)
[2019-10-31 16:00] VITALS: BP 129/66
--- NOTE | 2019-10-31 18:34 | NUR ---
MS RN CLOSING NOTE PATIENT IN BED RESTING COMFORTABLY. PATIENT IN NO ACUTE DISTRESS. NO SOB NOTED. PATIENT BREATHING IS EVEN AND UNLABORED. WOUND CARE PROVIDED ORDERED. PATIENT NEEDS AND CONCERNS ADDRESSED. PATIENT KEPT CLEAN, DRY AND COMFORTABLE THROUGHOUT SHIFT. PATIENT EXTREMITIES OFFLOADED ON PILLOWS. PATIENT BED IS LOCKED AND IN LOWEST POSITION. CALL LIGHT WITHIN REACH. SAFETY PRECAUTIONS IN PLACE. WILL ENDORSE CARE TO PM SHIFT FOR JOE.
--- NOTE | 2019-10-31 19:25 | NUR ---
MS/RN OPENING NOTES: RECEIVED PATIENT IN BED RESTING COMFORTABLY. A/OX2-3. IN NO ACUTE DISTRESS. NO SOB NOTED. BREATHING IS EVEN AND UNLABORED. NO COMPLAINS OF PAIN OR DISCOMFORT AT THIS TIME. SAFETY PRECAUTIONS IN PLACE. PATIENT BED IS LOCKED AND IN LOWEST POSITION. CALL LIGHT WITHIN REACH. WILL CONTINUE TO MONITOR PATIENT ACCORDINGLY.
[2019-10-31 20:00] VITALS: BP 115/63
[2019-10-31] MEDS: ATORVASTATIN 40 MG TABLET PO SCH (21:24)
[2019-10-31] MEDS: INSULIN GLARGINE, 100 UNIT/ML CARTRIDGE SQ SCH (21:32)
[2019-11-01] MEDS: HYDROCODONE/APAP 5/325MG 1 EACH TABLET PO PRN ×2 (04:31→09:00)
--- NOTE | 2019-11-01 04:34 | NUR ---
MS/RN NOTES: PATIENT COMPLAINED OF PAIN LEVEL 7 ON HIS LEFT ARM. ADMINISTERED NORCO 5MG PO. TOLERATED WELL. VS WNL. PATIENT IS STABLE. WILL CONTINUE TO MONITOR ACCORDINGLY.
--- NOTE | 2019-11-01 06:32 | NUR ---
MS/RN CLOSING NOTES: PATIENT RESTING COMFORTABLY IN BED. NO SIGNIFICANT CHANGES IN CONDITION. NO ACUTE DISTRESS. NO SOB NOTED. BREATHING IS EVEN AND UNLABORED. WOUND CARE PROVIDED ORDERED. ALL DUE MEDS GIVEN ORDERED. PATIENT KEPT CLEAN, DRY AND COMFORTABLE THROUGHOUT THE NIGHT. EXTREMITIES OFFLOADED ON PILLOWS. SAFETY MEASURES KEPT IN PLACE. BED IS LOCKED AND IN LOWEST POSITION. CALL LIGHT WITHIN REACH. WILL ENDORSE JOE TO MORNING SHIFT.
[2019-11-01] MEDS: BLOOD SUGAR DIAGNOSTIC 1 EACH STRIP IN SCH ×2 (06:33→12:38)
[2019-11-01] MEDS: INSULIN REGULAR, HUMAN 100 UNIT/ML 3 ML VIAL SQ PRN ×2 (06:34→12:42)
[2019-11-01 08:00] VITALS: BP 141/73
--- NOTE | 2019-11-01 08:00 | NUR ---
RN NOTES RECEIVED PATIENT IN THE BED A/O X3, NO ACUTE RESPIRATORY DISTRESS, V/S STABLE, PATIENT WAS COMPLAINING OF PAIN ON LEFT ARM 9/10 PER PAIN SCALE. ALSO HAS A WEAKNESS ON LEFT SIDE, NEEDS ATTENDED AND ANTICIPATED. IV ACCESS ON RIGHT AC AREA INTACT SL. ADMINISTERED SCHEDULED MEDICATION. KEEP HOB ELEVATED FOR ASPIRATION PRECAUTION. PATIENT ABLE TO FEED SELF. CALL LIGHT WITHIN TO REACH. ASSIST TURN AND REPOSTION Q 2 HR.
[2019-11-01] MEDS: ARIPIPRAZOLE 5 MG TABLET PO SCH (08:38)
[2019-11-01 08:39] VITALS: BP 141/73
[2019-11-01] MEDS: VIT B CMPLX 3/FA/VIT C/BIOTIN 1 TAB TABLET PO SCH (08:39)
[2019-11-01] MEDS: PANTOPRAZOLE 40 MG TABLET.DR PO SCH (08:39)
[2019-11-01] MEDS: ASCORBIC ACID 500 MG TABLET PO SCH (08:39)
[2019-11-01] MEDS: LEVETIRACETAM (250 MG) 250 MG TABLET PO SCH (08:39)
[2019-11-01] MEDS: LORATADINE 10 MG TABLET PO SCH (08:39)
[2019-11-01] MEDS: CARVEDILOL 12.5 MG TABLET PO SCH (08:39)
[2019-11-01] MEDS: SENNOSIDES 8.6 MG TABLET PO SCH (08:40)
[2019-11-01] MEDS: ASPIRIN 81 MG TAB.CHEW PO SCH (08:40)
[2019-11-01] MEDS: MUPIROCIN OINT 2% 22 GM TUBE SCH (08:40)
[2019-11-01] MEDS: PROSOURCE / PROSTAT (PYXIS) 30 ML UDC PO SCH ×2 (08:41→12:42)
[2019-11-01] MEDS: SILVER SULFADIAZINE 50 GM JAR TP SCH (08:42)
--- NOTE | 2019-11-01 09:00 | NUR ---
RN NOTES ADMINISTERED NARCO 5/325 MG PO PRN FOR LEFT AR PAIN 06/16 PER PATIENT REQUEST V/S TAKEN BP-141/73, P-67, CONTINUED MONITORING.
--- NOTE | 2019-11-01 10:00 | NUR ---
rn notes patient will discharge back to the snf.
--- NOTE | 2019-11-01 14:17 | NUR ---
MARKETING MGR NOTES PATIENT GOING TO DISCHARGE AT THIS TIME BACK TO SNF. PATIENT STABLE, NO ACUTE RESPIRATORY DISTRESS, REFUSED PAIN, V/S WNL. MED RECONCILIATION AND DISCHARGE ORDER REVIEWED AND EXPLAINED TO PATIENT. REPORT GIVEN SNF ALEKSANDRA HOWARD. RN VERBALIZED UNDERSTANDING. PATIENT MRSA OF NARES. FAMILY AWARE OF DISCHARGE PLANING. PICTURE TAKEN. PATIENT REFUSED SIGN PAPERWORK. PATIENT SATELLITE TELEVISION INSTALLER BY AMBULANCE.
[2020-01-30] MEDS ORDERED: DIVA500T2 PO (10:51)
[2020-01-30] MEDS ORDERED: CEFE1FRO IV (10:51)
== END 2019-11-01 14:30 | DRG 100 ==
LOC: ER 14:59 → TELE 20:20 → MED 10-30 08:57
PROVIDERS: ADMIT Nurse Practitioner Acute Care; ATTEND Nurse Practitioner Acute Care
PROC: 5A1D70Z Performance of Urinary Filtration, Intermittent, Less than 6 Hours Per Day (ICD-10-PCS; principal; 2019-10-29)
DX: R56.9 Unspecified convulsions (principal); N18.6 End stage renal disease; E44.1 Mild protein-calorie malnutrition; I69.354 Hemiplegia and hemiparesis following cerebral infarction affecting left non-dominant side; D68.69 Other thrombophilia; N17.9 Acute kidney failure, unspecified; I12.0 Hypertensive chronic kidney disease with stage 5 chronic kidney disease or end stage renal disease; I25.10 Atherosclerotic heart disease of native coronary artery without angina pectoris; Z86.19 Personal history of other infectious and parasitic diseases; Z95.1 Presence of aortocoronary bypass graft; Z99.2 Dependence on renal dialysis; I45.10 Unspecified right bundle-branch block; Z79.4 Long term (current) use of insulin; E11.42 Type 2 diabetes mellitus with diabetic polyneuropathy; E11.621 Type 2 diabetes mellitus with foot ulcer; F20.9 Schizophrenia, unspecified; D63.1 Anemia in chronic kidney disease; E11.22 Type 2 diabetes mellitus with diabetic chronic kidney disease; E88.09 Other disorders of plasma-protein metabolism, not elsewhere classified; Z68.25 Body mass index [BMI] 25.0-25.9, adult; Z89.411 Acquired absence of right great toe; N25.0 Renal osteodystrophy; T14.8XXA Other injury of unspecified body region, initial encounter; R26.81 Unsteadiness on feet; E11.51 Type 2 diabetes mellitus with diabetic peripheral angiopathy without gangrene; L97.529 Non-pressure chronic ulcer of other part of left foot with unspecified severity; I70.245 Atherosclerosis of native arteries of left leg with ulceration of other part of foot
CPT/HCPCS: 36415; 70450-TC; 71045-TC; 80048-TC; 80061-TC; 80076-TC; 82962-TC; 83735-TC; 84100-TC; 84443-TC; 85025-TC; 85730-TC; 87081-TC; 90935-TC; 93307-TC; 95819-TC; 97112-TC; 97530-TC; G0378; J1815; J1953; J3490; J7030; J7050

== ENCOUNTER 2020-01-17 23:55 | Inpatient (IN) | payer MEDICARE, OTHER ==
[~2020-01-17] VITALS: Ht 165.1 cm; Wt 57.6 kg
[~2020-01-17 23:55] MED LIST changes: +ACET-2605 PO; -ACET-868 PO; +ALBU2.5V38 IH; +AMIN30LI2 PO; -Amox/Clavulanate PO; -CLOP75TA15 PO; +DEXT50DI8 IV; +FOLI0.8T2 PO; -GLIP5TAB13 PO; +GLUC1KIT IM; -HYDR-3974 PO; +HYDR-3976 PO; +INSU100V10 SQ; +INSU100V11 SQ; -INSU100V27 SQ; +IPRA0.2S9 IH; -Insulin Glargine,Hum SQ; +LORA10TA7 PO; -MAGN400O6 PO; -MELA3TAB41 PO; -NA P133E RC; +NAPH1POW3 PO; +NITR0.4T48 SL; -NYST15CR2 TP; +PANT40TA2 PO; +POLY17PO4 PO; +SENN-261 PO; +TRIA15OI2 TP; -ZINC1CAP2 PO
--- NOTE | 2020-01-17 23:57 | NUR ---
PT BIBPA FROM [facility] C/O ALTERED MENTAL STATUS, GEN WEAKNESS. +NCOV, PT IS AAOX2, NOT IN RESPIRATORY DISTRESS, HOOKED TO O2AT 2 LPM VIA NC AND COPYING MACHINE MECHANIC, KEPT RESTED AND COMFORTABLE, WILL CONTINUE TO MONITOR.
--- NOTE | 2020-01-17 23:58 | NUR ---
SEEN AND EXAMINED BY
--- NOTE | 2020-01-18 00:10 | NUR ---
IV LINE ESTABLISHED, BLOOD DRAWN AND SENT TO LAB.
[2020-01-18 00:16] LABS: BASOPHILS # (AUTO) 0.1 /CMM (0.0-0.2); BASOPHILS % (AUTO) 1.2 % (0.0-2.0); HEMATOCRIT 35 % (39-51); HEMOGLOBIN 11.6 g/dL (13.5-17.5); LYMPHOCYTES # (AUTO) 0.6 /CMM (0.8-4.8); LYMPHOCYTES % (AUTO) 7.2 % (20.0-44.0); MEAN CORPUSCULAR HGB CONC 33 g/dl (31.0-36.0); MEAN CORPUSCULAR VOLUME 94 fL (80-96); MONOCYTES # (AUTO) 0.7 /CMM (0.1-1.30); MONOCYTES % (AUTO) 8.7 % (2.0-12.0); NEUTROPHILS # (AUTO) 6.5 /CMM (1.8-8.9); NEUTROPHILS % (AUTO) 82.9 % (43.0-81.0); PLATELET COUNT (AUTO) 181 /CMM (150-450); RED BLOOD CELL COUNT(AUTO) 3.73 MIL/uL (4.5-6.0); WHITE BLOOD COUNT (AUTO) 7.8 K/uL (4.3-11.0)
[2020-01-18 00:30] LABS: ALBUMIN 2.5 g/dL (3.4-5.0); BILIRUBIN,DIRECT 0.4 mg/dL (0.0-0.2); BILIRUBIN,TOTAL 0.9 mg/dL (0.2-1.0); CALCIUM, SERUM 7.9 mg/dL (8.5-10.1); POTASSIUM 3.2 mmol/L (3.5-5.1); TOTAL PROTEIN, SERUM 6.7 g/dL (6.4-8.2)
[2020-01-18 00:32] LABS: CREATININE 7.7 mg/dL (0.6-1.3)
--- NOTE | 2020-01-18 00:33 | NUR ---
SMOKING TOBACCO PACKING MACHINE HAND AT BEDSIDE FOR XRAY.
--- NOTE | 2020-01-18 00:54 | NUR ---
CALLED SUP FOR TELE BED. +ISO +DIALYSIS
--- NOTE | 2020-01-18 01:16 | NUR ---
ER TALKING TO TEJAL GEORGE REGARDING PT ADMISSION.
[2020-01-18] MEDS ORDERED: VANCOMYCIN 1 GM VIAL ONE (01:23)
[2020-01-18] MEDS ORDERED: PIPERACILLIN /TAZOBACTAM 3.375 G VIAL IV ONE (01:23)
--- NOTE | 2020-01-18 01:25 | NUR ---
ZOSYN GIVEN THROUGH LAC 20G END TIME: [id number]
[2020-01-18] MEDS ORDERED: MAGNESIUM HYDROXIDE 30 ML UDC PO PRN (01:30)
[2020-01-18] MEDS ORDERED: Z GUARD REMEDY 2 OZ OINT TP PRN (01:30)
[2020-01-18] MEDS ORDERED: DEXTROSE 50%-WATER 50 ML DISP.SYRIN IV PRN ×2 (01:30→08:30)
[2020-01-18] MEDS ORDERED: MAG HYDROX/AL HYDROX/SIMETH 30 ML UDC PO PRN (01:30)
[2020-01-18] MEDS ORDERED: VANCOMYCIN 1 GM in IV D5W 250 ML IV ONE (01:30)
[2020-01-18] MEDS ORDERED: ONDANSETRON HCL/PF 4 MG/2 ML VIAL IVP PRN (01:30)
[2020-01-18] MEDS ORDERED: PIPERACILLIN /TAZOBACTAM 3.375 G in IV D5W 50 ML IV ONE (01:30)
[2020-01-18] MEDS ORDERED: PIPERACILLIN /TAZOBACTAM 2.25 G in IV D5W 50 ML IV SCH (01:45)
--- NOTE | 2020-01-18 02:00 | NUR ---
END TIME FOR KATELYNN: 030
--- NOTE | 2020-01-18 02:07 | NUR ---
RT AT BEDSIDE FOR ABG
[2020-01-18 02:30] LABS: ABG BASE EXCESS -6.6 mmol/L; ABG OXYGEN SATURATION 94.9 % (92.0-98.5); ABG PCO2 31.8 mmHg (35.0-45.0); ABG PH 7.365 (7.350-7.450); ABG PO2 80.9 mmHg (75.0-100.0); AaDO2 81.2 mmHg; COHb 0.4 % (0.5-1.5); MetHb 0.5 % (0.0-1.5); SITE, ABG Right Radial; VENT MODE, BG N/C 28%
--- NOTE | 2020-01-18 03:12 | NUR ---
REPORT GIVEN TO LANI ON FIRST FLOOR
--- NOTE | 2020-01-18 03:22 | NUR ---
YARD HAND NOTES RECEIVED PT IN [facility] FROM ED. PUT IN RM 102. A/OX1 CONFUSED. DIMINISHED AND WHEEZING NOTED THROUGHOUT LUNGS. NAD, NO SOB. ON TELE MONITOR WITH SR. INCONTINENT OF URINE AND BOWEL WITH DIAPER ON. PT IS IN BEDREST WITH LEFT SIDED WEAKNESS AND CONTRACTURES ON LEFT UPPER AND LOWER EXTREMITIES. SKIN: LEFT 2ND TOE AND LEFT HEEL, ALONG WITH LEFT LATERAL FOOT SHOW PROBLEMS, DOCUMENTED. AWAITING WOUND CONSULT. LEFT CHEST HAS PORT-A-CATH. BED LOCKED IN LOWEST POSITION. ALL SAFETY MEASURES IN PLACE. KEPT CLEAN AND DRY. WILL CONT TO MONITOR
[2020-01-18 04:00] VITALS: BP 134/65
[2020-01-18 04:33] VITALS: BP 134/65
[2020-01-18] MEDS ORDERED: FEE PK DOSING 1 MIN EA MC ONE (06:55)
[2020-01-18] MEDS: BLOOD SUGAR DIAGNOSTIC 1 EACH STRIP IN SCH ×4 (07:30→21:39)
--- NOTE | 2020-01-18 07:30 | NUR ---
RN NOTES RECEIVED PATIENT IN BED RESTING COMFORTABLY IN MODERATE HIGH BACK REST. A/O X1. ON OXYGEN 2LPM VIA NC. NO SIGNS OF DISTRESS NOTED AT THIS TIME. IV ACCESS IN LEFT HAND #20 AND NOTED WITH PORT-CATH ON LEFT CHEST. SAFETY MEASURES IN PLACE, BED IN LOWEST LOCKED POSITION WITH SIDE RAILS UP X2. CALL LIGHT WITHIN REACH. WILL CONTINUE TO MONITOR.
[2020-01-18 07:33] LABS: C-REACTIVE PROTEIN 3.2 mg/dL (0.0-0.9)
[2020-01-18 08:00] VITALS: BP 114/63
--- NOTE | 2020-01-18 08:21 | NUR ---
RN NOTES INSULIN NOT AVAILABLE AT THIS TIME, CALLED PHARMACY AND THEY WILL DELIVER. WILL CONTINUE TO MONITOR AND F/U.
[2020-01-18] MEDS ORDERED: BISACODYL SUPP (10 MG) 10 MG/SUPP.RECT SUPP.RECT RC PRN (08:30)
[2020-01-18] MEDS: ASPIRIN 81 MG TAB.CHEW PO SCH (09:13)
[2020-01-18] MEDS: K PHOS NEUTRAL 250 MG TABLET PO SCH (09:13)
[2020-01-18] MEDS: LORATADINE 10 MG TABLET PO SCH (09:14)
[2020-01-18] MEDS: SENNOSIDES 8.6 MG TABLET PO SCH ×2 (09:14→16:35)
[2020-01-18] MEDS: ARIPIPRAZOLE 5 MG TABLET PO SCH (09:14)
[2020-01-18] MEDS: HEPARIN SODIUM, PORCINE 5000 UNITS/1 ML VIAL SQ SCH ×2 (09:16→21:12)
[2020-01-18] MEDS: PIPERACILLIN /TAZOBACTAM 2.25 G in IV D5W 50 ML IV SCH ×2 (09:17→21:10)
--- NOTE | 2020-01-18 09:51 | NUR ---
RN NOTES HOLD OF INSULIN, PATIENT REFUSED TO EAT. WILL CONTINUE TO MONITOR.
--- NOTE | 2020-01-18 09:53 | NUR ---
WOUND CARE CONSULT: REVIEWED NURSING DOCUMENTATION INCLUDING PHOTOS WHICH SHOW FOOT WOUNDS, PRESENT ON ADMISSION. RECOMMEND DPM CONSULT. DR HERNANDEZ NOTIFIED. RECOMMENDATIONS MADE FOR SKIN PROTECTION AND DISCUSSED WITH NURSING STAFF. FIRST STEP LOW AIRLOSS MATTRESS ORDERED. WILL SEE PRN. IN AGREEMENT WITH PLAN OF CARE. CURRENT FLORIN SCORE IS 10.
[2020-01-18 12:00] VITALS: BP 115/55
--- NOTE | 2020-01-18 12:30 | NUR ---
RN NOTES PATIENT REFUSED TO EAT, TRIED FEEDING BUT PATIENT SPITTING OUT THE FOOD, CALLED PHARMACY AGAIN REGARDING INSULIN, STILL WAITING TO BE DELIVERED. WILL F/U.
[2020-01-18 16:00] VITALS: BP 114/61
--- NOTE | 2020-01-18 18:55 | NUR ---
RN NOTES PATIENT IN BED RESTING COMFORTABLY IN MODERATE HIGH BACK REST. A/O X1. ON OXYGEN 2LPM VIA NC. NO SIGNS OF DISTRESS NOTED THROUGHOUT THE SHIFT. HOLD INSULIN BECAUSE PATIENT IS NOT EATING. IV ACCESS IN LEFT HAND #20 AND NOTED WITH PORT-CATH ON LEFT CHEST. SAFETY MEASURES IN PLACE, BED IN LOWEST LOCKED POSITION WITH SIDE RAILS UP X2. CALL LIGHT WITHIN REACH. WILL ENDORSE TO HOOP MAKER HELPER MACHINE NURSE FOR JOE.
--- NOTE | 2020-01-18 19:33 | NUR ---
CUSTOMER OPERATIONS SPECIALIST OPENING NOTES PATIENT RESTING IN BED COMFORTABLY; A/OX1; PATIENT CONFUSED; TELE MONITOR READS SINUS RHYTHM WITH 60HR; PATIENT ON 2L NC, TOLERATING WELL, SP02 AT 99%; BREATHING EVEN AND UNLABORED; NO SOB NOTED AT THIS TIME; L CHEST PARTA CATH INTACT; L HAND #20 INTACT AND PATENT; FLUSHING WELL, NO S/S OF REDNESS OR INFILTRATION NOTED; SAFETY PRECAUTIONS IN PLACE; BED LOCKED IN LOW POSITION; BILATERAL UPPER SIDE RAILS X2; CALL LIGHT WITHIN EASY REACH; WILL CONTINUE TO MONITOR
[2020-01-18 20:00] VITALS: BP 120/59
[2020-01-18] MEDS: INSULIN GLARGINE, 100 UNIT/ML CARTRIDGE SQ SCH (21:40)
--- NOTE | 2020-01-18 21:58 | NUR ---
SHOP AND ALTERATION TAILOR NOTES ACCU CHECK DONE: 161MG/DL, PATIENT REFUSING TO EAT SINCE MORNING SHIFT; LANTUS COVERAGE GIVEN PER MD ORDER; NO OTHER INSULIN COVERAGE GIVEN; PATIENT BREATHING EVEN AND UNLABORED; SP02: 98% ON 2L NC; PATIENT TOLERATING 2L NC WELL; WILL CONTINUE TO MONITOR;
[2020-01-19] VITALS: BP 118/62
--- NOTE | 2020-01-19 02:43 | NUR ---
CARBURIZER NOTES PATIENT SLEEPING IN BED COMFORTABLY; BREATHING EVEN AND UNLABORED; NO SOB NOTED; NO S/S OF RESPIRATORY DISTRESS; PATIENT TOLERATING 2L NC WELL; SPO2 AT 97%; WILL CONTINUE TO MONITOR
[2020-01-19 04:00] VITALS: BP 115/56
[2020-01-19] MEDS: PIPERACILLIN /TAZOBACTAM 2.25 G in IV D5W 50 ML IV SCH ×3 (04:01→21:21)
--- NOTE | 2020-01-19 05:32 | NUR ---
RECEIVING CLERK NOTES RT AT BEDSIDE PERFORMING EKG; PATIENT TOLERATING WELL; SPO2 @ 99%; WILL CONTINUE TO MONITOR
--- NOTE | 2020-01-19 05:41 | NUR ---
SAFETY LAMP KEEPER NOTES EKG COMPLETED AND RESULTED; SINUS JOVANI NOTED; EKG FILED IN PATIENT BINDER; WILL CONTINUE TO MONITOR
--- NOTE | 2020-01-19 05:48 | NUR ---
CANDY STARCH MOLD PRINTER NOTES SQUEEZER OPERATOR AT BEDSIDE; PATIENT REMOVING SURGICAL MASK; PATIENT REQUESTED TO HAVE MASK OFF UNTIL AM SHIFT; REQUESTED NOTED; PATIENT SLIGHTLY CONFUSED; DOESN'T WANT BLOOD SUGAR CHECKED. WILL CONTINUE TO MONITOR
--- NOTE | 2020-01-19 06:19 | NUR ---
CREDIT RISK MANAGEMENT DIRECTOR CLOSING NOTES PATIENT RESTING IN BED COMFORTABLY; A/OX1 CONFUSED; PATIENT ABLE TO VERBALIZE THIRST; BREATHING EVEN AND UNLABORED; NO SOB OR S/S OF ACUTE RESPIRATORY DISTRESS NOTED; PATIENT TOLERATING 2L NC WELL; SPO2 AT 99%; TELE MONITOR READS SINUS RHYTHM/ SINUS JOVANI WITH 60S HR; ALL NEEDS RENDERED; ISOLATION MAINTAINED; SAFETY PRECAUTIONS IN PLACE; BED LOCKED IN LOWEST POSITION; BILATERAL UPPER SIDE RAILS X2; CALL LIGHT WITHIN REACH; WILL ENDORSE JOE TO ONCOMING SHIFT
[2020-01-19 06:29] LABS: BASOPHILS % (AUTO) 0.3 % (0.0-2.0); EOSINOPHILS % (AUTO) 0.6 % (0.0-6.0); HEMATOCRIT 34 % (39-51); HEMOGLOBIN 11.3 g/dL (13.5-17.5); LYMPHOCYTES # (AUTO) 0.8 /CMM (0.8-4.8); LYMPHOCYTES % (AUTO) 9.5 % (20.0-44.0); MEAN CORPUSCULAR HGB CONC 33 g/dl (31.0-36.0); MEAN CORPUSCULAR VOLUME 93 fL (80-96); MONOCYTES # (AUTO) 0.6 /CMM (0.1-1.30); MONOCYTES % (AUTO) 6.7 % (2.0-12.0); NEUTROPHILS # (AUTO) 7.1 /CMM (1.8-8.9); NEUTROPHILS % (AUTO) 82.9 % (43.0-81.0); PLATELET COUNT (AUTO) 215 /CMM (150-450); WHITE BLOOD COUNT (AUTO) 8.5 K/uL (4.3-11.0)
[2020-01-19 07:21] LABS: CALCIUM, SERUM 8.1 mg/dL (8.5-10.1); MAGNESIUM 2.7 mg/dL (1.8-2.4); PHOSPHORUS 7.3 mg/dL (2.5-4.9); POTASSIUM 3.3 mmol/L (3.5-5.1)
[2020-01-19 07:27] LABS: THYROID STIMULATING HORMONE 0.344 uIU/mL (0.358-3.74)
--- NOTE | 2020-01-19 07:30 | NUR ---
received patient from ongoing nurse. Resting quetly in bed, denies any pain or discomfort. HOB elevated and all needs attended. Safety measures intact. IV intact. Will cont to monitor
[2020-01-19 07:58] LABS: CREATININE 8.4 mg/dL (0.6-1.3)
[2020-01-19 08:00] VITALS: BP 133/68
--- NOTE | 2020-01-19 08:00 | NUR ---
rn bs - 161- coverage not given due to patient refused breakfast.
[2020-01-19] MEDS: K PHOS NEUTRAL 250 MG TABLET PO SCH (08:03)
[2020-01-19] MEDS: LORATADINE 10 MG TABLET PO SCH (08:03)
[2020-01-19] MEDS: SENNOSIDES 8.6 MG TABLET PO SCH ×2 (08:03→16:54)
[2020-01-19] MEDS: PANTOPRAZOLE 40 MG TABLET.DR PO SCH (08:04)
[2020-01-19] MEDS: ASPIRIN 81 MG TAB.CHEW PO SCH (08:04)
[2020-01-19] MEDS: HEPARIN SODIUM, PORCINE 5000 UNITS/1 ML VIAL SQ SCH ×2 (08:05→21:23)
[2020-01-19] MEDS: ARIPIPRAZOLE 5 MG TABLET PO SCH (08:06)
[2020-01-19] MEDS: BLOOD SUGAR DIAGNOSTIC 1 EACH STRIP IN SCH ×4 (08:07→22:07)
[2020-01-19] MEDS ORDERED: POTASSIUM CHLORIDE 20 MEQ TAB.PRT.SR PO SCH (11:00)
--- NOTE | 2020-01-19 11:00 | NUR ---
ms rn received covd positive result,patient already on isolation.
[2020-01-19 12:00] VITALS: BP 132/67
[2020-01-19] MEDS: INSULIN REGULAR, HUMAN 100 UNIT/ML 3 ML VIAL SQ PRN ×2 (12:45→17:19)
[2020-01-19] MEDS: HYDROXYCHLOROQUINE 200 MG TABLET PO SCH ×2 (15:01→21:21)
[2020-01-19] MEDS: AZITHROMYCIN 500 MG in IV D5W 250 ML IV SCH (15:03)
[2020-01-19 16:00] VITALS: BP 130/65
--- NOTE | 2020-01-19 18:00 | NUR ---
ms rn patient was seen by reg-infectious registry np,w/ orders made and carried out.
--- NOTE | 2020-01-19 19:00 | NUR ---
ms rn on bed,hd going on, tolerated well.
--- NOTE | 2020-01-19 19:52 | NUR ---
RN OPENING NOTE PATIENT RESTING IN BED COMFORTABLY; A/OX1 CONFUSED; PT CURRENTLY RECEIVING HD, HOB ELEVATED BREATHING EVEN AND UNLABORED; PATIENT ON 2L NC WELL; SPO2 AT 99%; TELE MONITOR CURRENT READING SINUS RHYTHM. PT ON ISOLATION FOR + COVID; SAFETY PRECAUTIONS IN PLACE; BED LOCKED IN LOWEST POSITION; SIDE RAILS UP X 2, CALL LIGHT WITHIN REACH; WILL CONTINUE TO MONITOR PT
[2020-01-19 20:00] VITALS: BP_SYST 125; BP_SYST 126; BP_DIAS 60
[2020-01-19] MEDS: MUPIROCIN OINT 2% 22 GM TUBE SCH (21:25)
[2020-01-19] MEDS: INSULIN GLARGINE, 100 UNIT/ML CARTRIDGE SQ SCH (22:00)
--- NOTE | 2020-01-19 22:23 | NUR ---
RN NOTE INSULIN LANTUS NOT ADMINISTERED. BLOOD GLUCOSE 88
[2020-01-20] VITALS: BP 120/60
[2020-01-20 04:00] VITALS: BP 117/62
[2020-01-20] MEDS: PIPERACILLIN /TAZOBACTAM 2.25 G in IV D5W 50 ML IV SCH ×3 (05:02→21:38)
--- NOTE | 2020-01-20 06:29 | NUR ---
RN CLOSING NOTE PATIENT ASLEEP IN BED, IN SEMI-FOWLERS POSITION, BREATHING EVEN AND UNLABORED; PATIENT ON 2L NC WELL; SPO2 CURRENTLY 99%; TELE MONITOR CURRENT READING SINUS JOVANI 56. IV TO RIGHT HAND PATENT AND INTACT, PT ON ISOLATION FOR + COVID; SAFETY PRECAUTIONS IN PLACE; BED LOCKED IN LOWEST POSITION; SIDE RAILS UP X 2, CALL LIGHT WITHIN REACH; ENDORSED TO AM RN FOR JOE
--- NOTE | 2020-01-20 07:30 | NUR ---
MEDIA ACCOUNT EXECUTIVE NOTES RECEIVED WRITTEN REPORT FROM OUTGOING NURSE NEREIDA LAKE, PT IN BED, ASLEEP, RESPIRATIONS NORMAL, NOT IN DISTRESS, NO SIGN OF PAIN, ON ISOLATION PRECAUTIONS.
[2020-01-20 07:38] LABS: C-REACTIVE PROTEIN 26.5 mg/dL (0.0-0.9)
[2020-01-20 08:00] VITALS: BP 102/52
--- NOTE | 2020-01-20 08:00 | NUR ---
SUPERVISOR PRINT LINE NOTES INSULIN NOT GIVEN, PT WITH POOR APPETITE.
[2020-01-20] MEDS: PANTOPRAZOLE 40 MG TABLET.DR PO SCH (08:20)
[2020-01-20] MEDS: K PHOS NEUTRAL 250 MG TABLET PO SCH (08:20)
[2020-01-20] MEDS: ASPIRIN 81 MG TAB.CHEW PO SCH (08:20)
[2020-01-20] MEDS: HYDROXYCHLOROQUINE 200 MG TABLET PO SCH ×2 (08:20→16:07)
[2020-01-20] MEDS: ARIPIPRAZOLE 5 MG TABLET PO SCH (08:20)
[2020-01-20] MEDS: SENNOSIDES 8.6 MG TABLET PO SCH ×2 (08:20→16:07)
[2020-01-20] MEDS: LORATADINE 10 MG TABLET PO SCH (08:20)
[2020-01-20] MEDS: HEPARIN SODIUM, PORCINE 5000 UNITS/1 ML VIAL SQ SCH ×2 (08:32→21:39)
[2020-01-20] MEDS: BLOOD SUGAR DIAGNOSTIC 1 EACH STRIP IN SCH ×4 (08:33→22:03)
[2020-01-20] MEDS: MUPIROCIN OINT 2% 22 GM TUBE SCH ×2 (08:33→21:38)
[2020-01-20 10:22] LABS: CALCIUM, SERUM 8.4 mg/dL (8.5-10.1); CREATININE 5.9 mg/dL (0.6-1.3); POTASSIUM 3.1 mmol/L (3.5-5.1)
[2020-01-20 10:31] LABS: ALBUMIN 2.1 g/dL (3.4-5.0); BILIRUBIN,TOTAL 1.5 mg/dL (0.2-1.0); MAGNESIUM 2.4 mg/dL (1.8-2.4); PHOSPHORUS 4.8 mg/dL (2.5-4.9); TOTAL PROTEIN, SERUM 6.3 g/dL (6.4-8.2)
[2020-01-20 12:00] VITALS: BP 110/49
[2020-01-20] MEDS: AZITHROMYCIN 500 MG in IV D5W 250 ML IV SCH (14:51)
[2020-01-20] MEDS: VANCOMYCIN POST DIALYSIS 500MG IV PRN ×2 (15:52)
[2020-01-20 16:00] VITALS: BP_SYST 115; BP_DIAS 50; BP_DIAS 56
[2020-01-20] MEDS: INSULIN REGULAR, HUMAN 100 UNIT/ML 3 ML VIAL SQ PRN ×2 (16:56→22:15)
--- NOTE | 2020-01-20 18:26 | NUR ---
GREASE AND TALLOW PUMPER NOTES PT IN BED, RESTING, EASY TO AROUSE, ALERT TO SELF, VERBALLY RESPONSIVE, ABLE TO MAKE NEEDS KNOWN, CALL LIGHT WITHIN REACH, PM MEDS GIVEN ORDERED, PM CARE PROVIDED, NOT IN DISTRESS, ALL NEEDS ATTENDED, ISOLATION PRECAUTIONS OBSERVED.
--- NOTE | 2020-01-20 19:30 | NUR ---
RN OPENING NOTES, PATIENT IN BED AWAKE, A/OX1 CONFUSED AT TIMES, BREATHING EVEN AND UNLABORED, NO SOB/ACUTE DISTRESS NOTED AT THIS TIME, ON 2L NC WITH OPTIMAL O2 STA LEVEL AT THIS TIME, HOB ELEVATED, SINUS JOVANI IN TELE MONITOR AT THIS TIME WITH HR FLUCTUATING 40S-50S AT THIS TIME, ON ISOLATION FOR + COVID 19, SAFETY PRECAUTIONS IN PLACE, BED LOCKED AND IN LOWEST POSITION, SIDE RAILS UP X 2, CALL LIGHT WITHIN REACH, WILL CONTINUE TO MONITOR CLOSELY.
[2020-01-20 20:00] VITALS: BP 135/68
[2020-01-20] MEDS: INSULIN GLARGINE, 100 UNIT/ML CARTRIDGE SQ SCH (22:14)
[2020-01-21] VITALS (7 sets, daily range): BP systolic 110–135; BP diastolic 50–70
[2020-01-21] MEDS: PIPERACILLIN /TAZOBACTAM 2.25 G in IV D5W 50 ML IV SCH ×4 (05:22→17:51)
[2020-01-21 06:28] LABS: BASOPHILS % (AUTO) 0.4 % (0.0-2.0); EOSINOPHILS % (AUTO) 1.2 % (0.0-6.0); HEMATOCRIT 35 % (39-51); HEMOGLOBIN 11.4 g/dL (13.5-17.5); LYMPHOCYTES # (AUTO) 0.8 /CMM (0.8-4.8); LYMPHOCYTES % (AUTO) 8.9 % (20.0-44.0); MEAN CORPUSCULAR HGB CONC 33 g/dl (31.0-36.0); MEAN CORPUSCULAR VOLUME 93 fL (80-96); MONOCYTES # (AUTO) 0.7 /CMM (0.1-1.30); MONOCYTES % (AUTO) 7.1 % (2.0-12.0); NEUTROPHILS # (AUTO) 7.8 /CMM (1.8-8.9); NEUTROPHILS % (AUTO) 82.4 % (43.0-81.0); PLATELET COUNT (AUTO) 274 /CMM (150-450); RED BLOOD CELL COUNT(AUTO) 3.73 MIL/uL (4.5-6.0); WHITE BLOOD COUNT (AUTO) 9.5 K/uL (4.3-11.0)
--- NOTE | 2020-01-21 06:45 | NUR ---
RN CLOSING NOTES, PATIENT IN BED SLEEPING AT THIS TIME, BREATHING EVEN AND UNLABORED, NO SOB/ACUTE DISTRESS NOTED AT THIS TIME, AT ROOM AIR MAINTAINING O2 SAT LEVEL >96%, HOB ELEVATED, SINUS JOVANI IN TELE MONITOR AT THIS TIME WITH HR FLUCTUATING 50S-60S DURING NIGHT, ON ISOLATION FOR + COVID 19, SAFETY PRECAUTIONS IN PLACE, BED LOCKED AND IN LOWEST POSITION, SIDE RAILS UP X 2, ALL NEEDS PROVIDED AND MEDS DUE ADM ORDERED, CALL LIGHT WITHIN REACH, WILL ENDORSE CONTINUITY OF CARE TO ONCOMING NURSE.
[2020-01-21 07:01] LABS: ALBUMIN 2.1 g/dL (3.4-5.0); BILIRUBIN,TOTAL 1.3 mg/dL (0.2-1.0); CALCIUM, SERUM 8.6 mg/dL (8.5-10.1); MAGNESIUM 2.7 mg/dL (1.8-2.4); PHOSPHORUS 5.3 mg/dL (2.5-4.9); POTASSIUM 3.1 mmol/L (3.5-5.1); TOTAL PROTEIN, SERUM 6.8 g/dL (6.4-8.2)
[2020-01-21 07:05] LABS: CREATININE 7.9 mg/dL (0.6-1.3)
--- NOTE | 2020-01-21 07:30 | NUR ---
Tele/RN Opening Note Received patient in bed, AO x 1 able to responds physical stimuli. Respiratory even and unlabored with room air, no distress observed. Skin is warm to touch, intact perman cath on right chest. Kept lower position of the bed with locked wheel for safety and elevated HOB. Call light within reach, will continue to monitor.
[2020-01-21] MEDS: SENNOSIDES 8.6 MG TABLET PO SCH ×2 (08:08→16:45)
[2020-01-21] MEDS: ASPIRIN 81 MG TAB.CHEW PO SCH (08:08)
[2020-01-21] MEDS: LORATADINE 10 MG TABLET PO SCH (08:08)
[2020-01-21] MEDS: ARIPIPRAZOLE 5 MG TABLET PO SCH (08:08)
[2020-01-21] MEDS: K PHOS NEUTRAL 250 MG TABLET PO SCH (08:08)
[2020-01-21] MEDS: HYDROXYCHLOROQUINE 200 MG TABLET PO SCH ×2 (08:08→16:45)
[2020-01-21] MEDS: PANTOPRAZOLE 40 MG TABLET.DR PO SCH (08:08)
[2020-01-21] MEDS: BLOOD SUGAR DIAGNOSTIC 1 EACH STRIP IN SCH ×4 (08:09→23:12)
[2020-01-21] MEDS: HEPARIN SODIUM, PORCINE 5000 UNITS/1 ML VIAL SQ SCH ×2 (08:11→22:31)
[2020-01-21] MEDS: MUPIROCIN OINT 2% 22 GM TUBE SCH ×2 (08:38→22:30)
--- NOTE | 2020-01-21 11:30 | NUR ---
Obtained consent for CT ABD with contrast by Brother/Gonzalo Garcia
[2020-01-21] MEDS ORDERED: POTASSIUM CHLORIDE 20 MEQ TAB.PRT.SR PO SCH (12:00)
--- NOTE | 2020-01-21 12:00 | NUR ---
Patient noticed infiltrate IV site on right forearm, new ordered midline, a waiting placement of midline.
[2020-01-21] MEDS: AZITHROMYCIN 500 MG in IV D5W 250 ML IV SCH (17:51)
--- NOTE | 2020-01-21 18:40 | NUR ---
Tele/RN Closing Note Patient in bed, remains AO x 1, confused, sleeping comfortable, no appears pain or any discomfort. Skin is warm to touch, kept clean/dry. No respiratory distress observed, even and unlabored. Keep lower position of the bed with locked wheel and elevated HOB. Call light within reach, all needs met, will endorse hourly shift manager.
[2020-01-21] MEDS: INSULIN GLARGINE, 100 UNIT/ML CARTRIDGE SQ SCH (22:00)
[2020-01-21] MEDS: CEFEPIME 1 GM in IV D5W 50 ML IV SCH (22:29)
--- NOTE | 2020-01-21 22:30 | NUR ---
RN NOTE HD COMPLETED 1 LITER REMOVED PER DIALYSIS NURSE. MEDS TO BE GIVEN, PHARMACY NOTIFIED PT WAS GETTING HD. AWARE MEDS GIVEN LATE.
[2020-01-21] MEDS: VANCOMYCIN POST DIALYSIS 500MG IV PRN ×2 (22:53)
[2020-01-22] VITALS: BP_SYST 126; BP_SYST 142; BP_DIAS 72; BP_DIAS 73
[2020-01-22 04:00] VITALS: BP 131/66
--- NOTE | 2020-01-22 05:38 | NUR ---
RN NOTE PT FOUND ON THE FLOOR SITTING WITH BACK AND HEAD AGAINST THE BED, PT STATES, '' I SLID OFF THE BED. DENIES ANY PAIN, NO CUTS, BRUISES OR ABRASIONS NOTED. PHARMACY DIRECTOR AND MD NOTIFIED
[2020-01-22 07:03] LABS: BASOPHILS % (AUTO) 0.3 % (0.0-2.0); EOSINOPHILS % (AUTO) 2.2 % (0.0-6.0); HEMATOCRIT 37 % (39-51); HEMOGLOBIN 11.9 g/dL (13.5-17.5); LYMPHOCYTES # (AUTO) 1.1 /CMM (0.8-4.8); LYMPHOCYTES % (AUTO) 11.7 % (20.0-44.0); MEAN CORPUSCULAR HGB CONC 32 g/dl (31.0-36.0); MEAN CORPUSCULAR VOLUME 94 fL (80-96); MONOCYTES # (AUTO) 0.8 /CMM (0.1-1.30); MONOCYTES % (AUTO) 7.9 % (2.0-12.0); NEUTROPHILS # (AUTO) 7.6 /CMM (1.8-8.9); NEUTROPHILS % (AUTO) 77.9 % (43.0-81.0); PLATELET COUNT (AUTO) 292 /CMM (150-450); RED BLOOD CELL COUNT(AUTO) 3.94 MIL/uL (4.5-6.0); WHITE BLOOD COUNT (AUTO) 9.8 K/uL (4.3-11.0)
--- NOTE | 2020-01-22 07:09 | NUR ---
RN CLOSING NOTE PATIENT IN BED AWAKE, BREATHING EVEN AND UNLABORED, NO SOB/ACUTE DISTRESS NOTED AT THIS TIME, AT HOB ELEVATED, SINUS JOVANI IN TELE MONITOR AT THIS TIME WITH HR FLUCTUATING 50S-60S DURING NIGHT, IV SITE TO LET FOOT PATENT AND INTACT ON ISOLATION FOR + COVID 19, SAFETY PRECAUTIONS IN PLACE, BED LOCKED AND IN LOWEST POSITION, SIDE RAILS UP X 2, ALL NEEDS PROVIDED, PT CURRENTLY NPO AWAITING FOR CT OF ABDOMEN THIS AM, CALL LIGHT WITHIN REACH, WILL ENDORSED TO AM RN FOR JOE.
[2020-01-22 07:12] LABS: CALCIUM, SERUM 8.6 mg/dL (8.5-10.1); POTASSIUM 3.7 mmol/L (3.5-5.1)
[2020-01-22] MEDS: PANTOPRAZOLE 40 MG TABLET.DR PO SCH (07:30)
[2020-01-22 08:00] VITALS: BP 122/66
--- NOTE | 2020-01-22 08:00 | NUR ---
ELECTRICITY TRADER NOTES PATIENT IN BED RESTING NO SOB OR ACUTE DISTRESS NOTED. PATIENT ALERT ORIENTED X1-2. BED IN LOW LOCKED POSITION, CALL LIGHT WITHIN REACH. WILL CONTINUE TO MONITOR. Addendum: 01/22/20 at 1009 by KASSANDRA CARROLL RN PATIENT IS NPO DUE TO CT OF THE ABD.
[2020-01-22] MEDS: BLOOD SUGAR DIAGNOSTIC 1 EACH STRIP IN SCH ×4 (08:30→22:05)
[2020-01-22] MEDS: SENNOSIDES 8.6 MG TABLET PO SCH ×2 (09:00→18:18)
[2020-01-22] MEDS: MUPIROCIN OINT 2% 22 GM TUBE SCH ×2 (09:00→21:00)
[2020-01-22] MEDS: HEPARIN SODIUM, PORCINE 5000 UNITS/1 ML VIAL SQ SCH ×2 (10:13→21:23)
[2020-01-22] MEDS: HYDROXYCHLOROQUINE 200 MG TABLET PO SCH ×2 (11:41→18:18)
[2020-01-22] MEDS: LORATADINE 10 MG TABLET PO SCH (11:41)
[2020-01-22] MEDS: ASPIRIN 81 MG TAB.CHEW PO SCH (11:41)
[2020-01-22] MEDS: K PHOS NEUTRAL 250 MG TABLET PO SCH (11:41)
[2020-01-22] MEDS: ARIPIPRAZOLE 5 MG TABLET PO SCH (11:44)
[2020-01-22 12:00] VITALS: BP 122/58
[2020-01-22] MEDS: AZITHROMYCIN 500 MG in IV D5W 250 ML IV SCH (15:08)
[2020-01-22 16:00] VITALS: BP 125/66
[2020-01-22] MEDS ORDERED: IOHEXOL-300 100 ML VIAL IV ONE (16:45)
[2020-01-22] MEDS ORDERED: CT SWABBABLE VALVE TRANS SET 1 EA INFUS.SET MC ONE (16:46)
[2020-01-22] MEDS ORDERED: IV NS 0.9% 250 ML IV ONE (16:48)
[2020-01-22] MEDS ORDERED: LIDOCAINE 1%-EPI 1:100,000 20 ML VIAL TP ONE (17:30)
--- NOTE | 2020-01-22 17:30 | NUR ---
TRIM LINE WORKER NOTES DR. ONEILL REMOVED PATIENTS PERMACATH PATIENT TOLERATED PROCEDURE WELL. NO SIGNS OR BLEEDING NOTED. WILL CONTINUE TO MONITOR.
--- NOTE | 2020-01-22 19:15 | NUR ---
RN OPENING NOTE: PATIENT IN BED, AWAKE, AND VERBALLY RESPONSIVE. AAOX1. NO RESPIRATORY DISTRESS. NO C/O PAIN. ON RUMPER SHOWING NSR. UPON ENDORSEMENT FROM AM SHIFT NURSE, PATIENT WILL HAVE DIALYSIS LINE INSERTION TOMORROW AND WILL UNDERGO DIALYSIS. SAFETY PRECAUTIONS IMPLEMENTED. BED LOCKED, ALARM ON, LOW POSITION. FREQUENT VISUAL MONITORING Q 15 MINS FOR SAFETY. SIDE RAILS X 2 UP. HOB ELEVATED. CALL LIGHT PLACED WITHIN REACH. WILL CONT. TO MONITOR.
--- NOTE | 2020-01-22 19:19 | NUR ---
SENIOR STRATEGY MANAGER NOTES PATIENT IN BED RESTING NO SOB OR ACUTE DISTRESS NOTED. ALL DUE MEDICATIONS ADMINISTERED. ALL NEEDS MET. ENDORSED CARE TO PM SHIFT.
[2020-01-22 20:00] VITALS: BP 136/72
--- NOTE | 2020-01-22 21:18 | NUR ---
RN NOTE: PATIENT ON HEPARIN 5,000 UNITS SUBCUTANEOUSLY. PATIENT HAS DIALYSIS LINE INSERTION TOMORROW. PER DR. BRENDA KRISHNAN, OK TO ADMINISTER HEPARIN DOSE TONIGHT. NO S/S OF BLEEDING. WILL CONT. TO MONITOR.
--- NOTE | 2020-01-22 21:20 | NUR ---
RN NOTE: UPON ENDORSEMENT FROM AM SHIFT, PATIENT NEEDS DIALYSIS TOMORROW. CONSENT FOR DIALYSIS INSERTION WAS SIGNED AND PLACED IN CHART. PER CHARGE NURSE, PATIENT NEEDS TO BE NPO TONIGHT. DR. KRISHNAN MADE AWARE. WILL ENDORSE TO AM SHIFT NURSE.
[2020-01-22] MEDS: CEFEPIME 1 GM in IV D5W 50 ML IV SCH (21:23)
[2020-01-22] MEDS: INSULIN GLARGINE, 100 UNIT/ML CARTRIDGE SQ SCH (22:00)
--- NOTE | 2020-01-22 22:13 | NUR ---
RN NOTE: PATIENT ON NPO EXCEPT MEDS. BS 163. PATIENT HAS LANTUS [address] KRISHNAN, JUST GIVE HALF A DOSE.
[2020-01-22] MEDS ORDERED: INSULIN GLARGINE, 100 UNIT/ML CARTRIDGE SQ ONE (22:30)
[2020-01-23] VITALS (9 sets, daily range): BP systolic 118–145; BP diastolic 52–76
[2020-01-23] MEDS: INSULIN REGULAR, HUMAN 100 UNIT/ML 3 ML VIAL SQ PRN (01:03)
--- NOTE | 2020-01-23 06:46 | NUR ---
RN NOTE: PER DR. AVILES, DIALYSIS INSERTION WILL NOT BE DONE TODAY. PER , OK TO PLACE PATIENT BACK TO RENAL STANDARD DIET.
--- NOTE | 2020-01-23 06:51 | NUR ---
RN CLOSING NOTE: PATIENT IN BED, ASLEEP, BUT EASILY AROUSABLE. NO SOB. NO C/O PAIN. IN NO ACUTE DISTRESS. WILL ENDORSE TO AM SHIFT NURSE FOR CONTINUITY OF CARE.
[2020-01-23] MEDS: BLOOD SUGAR DIAGNOSTIC 1 EACH STRIP IN SCH ×4 (07:30→22:00)
[2020-01-23] MEDS ORDERED: SODIUM POLYSTYRENE SULFONATE 15 G/60 ML BOTTLE PO ONE (08:00)
--- NOTE | 2020-01-23 08:00 | NUR ---
COMFORT STATION ATTENDANT OPENING NOTES Received Patient asleep and resting in bed. A/O x 1. VS stable with no acute distress. Breathing even and unlabored on 2LPM via NC with no respiratory distress. Denies pain. No signs and symptoms of pain. Telemonitor in place and patent reading SR with BBB and HR-64. PASHA Midline clean, intact, patent and flushing well. Isolation precautions in place. Safety precautions in place. Bed locked and set to lowest position with side rails x 2 up. All needs rendered at this time. Call light within reach. Will continue to monitor.
[2020-01-23] MEDS: PANTOPRAZOLE 40 MG TABLET.DR PO SCH (09:10)
[2020-01-23] MEDS: MUPIROCIN OINT 2% 22 GM TUBE SCH ×2 (09:18→21:00)
[2020-01-23] MEDS: ASPIRIN 81 MG TAB.CHEW PO SCH (09:18)
[2020-01-23] MEDS: ARIPIPRAZOLE 5 MG TABLET PO SCH (09:18)
[2020-01-23] MEDS: K PHOS NEUTRAL 250 MG TABLET PO SCH (09:19)
[2020-01-23] MEDS: HYDROXYCHLOROQUINE 200 MG TABLET PO SCH ×2 (09:19→17:46)
[2020-01-23] MEDS: LORATADINE 10 MG TABLET PO SCH (09:19)
[2020-01-23] MEDS: SENNOSIDES 8.6 MG TABLET PO SCH ×2 (09:19→17:46)
[2020-01-23] MEDS: HEPARIN SODIUM, PORCINE 5000 UNITS/1 ML VIAL SQ SCH ×2 (09:20→21:00)
[2020-01-23] MEDS: AZITHROMYCIN 500 MG in IV D5W 250 ML IV SCH (13:01)
--- NOTE | 2020-01-23 18:43 | NUR ---
AGRICULTURE DEPARTMENT CHAIR CLOSING NOTES Patient asleep and resting in bed. A/O x 1. VS stable with no acute distress. Breathing even and unlabored on room air with no respiratory distress. Denies pain. No signs and symptoms of pain. Telemonitor in place and patent reading SB with BBB, Couplets and HR-58. PASHA Midline clean, intact, patent and flushing well. Isolation precautions in place. Safety precautions in place. Bed locked and set to lowest position with side rails x 2 up. All needs rendered at this time. Call light within reach. Will endorse plan of care to oncoming shift.
[2020-01-23] MEDS: CEFEPIME 1 GM in IV D5W 50 ML IV SCH (21:00)
[2020-01-23] MEDS: INSULIN GLARGINE, 100 UNIT/ML CARTRIDGE SQ SCH (22:00)
[2020-01-24] VITALS: BP 126/60
[2020-01-24 04:00] VITALS: BP 116/71
--- NOTE | 2020-01-24 07:00 | NUR ---
MANAGER SUPPLIER 1 PATIENT ASLEEP AND RESTING IN BED A/O X1. PATIENT IS VITALS STABLE AT THIS TIME NO DISTRESS NOTE. PATIENT SR, 1 AV BLOCK 70'S HR. ON EXTERNAL MONITOR. PATIENT IS ON BED REST, LEFT FOOT NECROTIS AND LATERAL HEEL BLISTER. PATIENT HAS PASHA MIDLINE, BED LOCKED AND LOWEST POSITION CALL LIGHT WITH IN REACH ALL SAFETY MEASURE IMPLEMENTED PER HOSPITAL POLICY.
[2020-01-24 07:47] LABS: BASOPHILS # (AUTO) 0.1 /CMM (0.0-0.2); BASOPHILS % (AUTO) 0.6 % (0.0-2.0); EOSINOPHILS % (AUTO) 3.1 % (0.0-6.0); HEMATOCRIT 34 % (39-51); HEMOGLOBIN 10.9 g/dL (13.5-17.5); LYMPHOCYTES # (AUTO) 1.1 /CMM (0.8-4.8); LYMPHOCYTES % (AUTO) 11.4 % (20.0-44.0); MEAN CORPUSCULAR HGB CONC 32 g/dl (31.0-36.0); MEAN CORPUSCULAR VOLUME 95 fL (80-96); MONOCYTES # (AUTO) 0.9 /CMM (0.1-1.30); MONOCYTES % (AUTO) 9.7 % (2.0-12.0); NEUTROPHILS # (AUTO) 7.3 /CMM (1.8-8.9); NEUTROPHILS % (AUTO) 75.2 % (43.0-81.0); PLATELET COUNT (AUTO) 381 /CMM (150-450); RED BLOOD CELL COUNT(AUTO) 3.55 MIL/uL (4.5-6.0); WHITE BLOOD COUNT (AUTO) 9.6 K/uL (4.3-11.0)
[2020-01-24 07:59] LABS: ALBUMIN 2.1 g/dL (3.4-5.0); BILIRUBIN,TOTAL 0.7 mg/dL (0.2-1.0); CALCIUM, SERUM 8.8 mg/dL (8.5-10.1); MAGNESIUM 2.5 mg/dL (1.8-2.4); PHOSPHORUS 6.9 mg/dL (2.5-4.9); POTASSIUM 3.4 mmol/L (3.5-5.1); TOTAL PROTEIN, SERUM 7.1 g/dL (6.4-8.2)
[2020-01-24 08:00] VITALS: BP 143/68
[2020-01-24 08:04] LABS: CREATININE 9.5 mg/dL (0.6-1.3)
--- NOTE | 2020-01-24 08:07 | NUR ---
RN TELE1 DR. MYERS NOTIFIED ABOUT CREATINE 9.5
[2020-01-24] MEDS: SENNOSIDES 8.6 MG TABLET PO SCH ×2 (08:58→16:45)
[2020-01-24] MEDS: ARIPIPRAZOLE 5 MG TABLET PO SCH (08:58)
[2020-01-24] MEDS: K PHOS NEUTRAL 250 MG TABLET PO SCH (08:58)
[2020-01-24] MEDS: LORATADINE 10 MG TABLET PO SCH (08:58)
[2020-01-24] MEDS: ASPIRIN 81 MG TAB.CHEW PO SCH (08:58)
[2020-01-24] MEDS: PANTOPRAZOLE 40 MG TABLET.DR PO SCH (08:59)
[2020-01-24] MEDS: BLOOD SUGAR DIAGNOSTIC 1 EACH STRIP IN SCH ×4 (08:59→23:19)
[2020-01-24] MEDS: HEPARIN SODIUM, PORCINE 5000 UNITS/1 ML VIAL SQ SCH ×2 (09:01→21:52)
[2020-01-24] MEDS: MUPIROCIN OINT 2% 22 GM TUBE SCH ×2 (09:01→21:00)
[2020-01-24] MEDS: POTASSIUM CHLORIDE 20 MEQ TAB.PRT.SR PO SCH ×3 (11:00→12:30)
[2020-01-24] MEDS: INSULIN REGULAR, HUMAN 100 UNIT/ML 3 ML VIAL SQ PRN ×3 (11:30→23:21)
[2020-01-24 12:00] VITALS: BP 134/64
[2020-01-24 16:00] VITALS: BP 132/60
[2020-01-24] MEDS ORDERED: VANCOMYCIN 500 MG in IV D5W 100 ML IV ONE (18:00)
--- NOTE | 2020-01-24 18:15 | NUR ---
INSURANCE UNDERWRITER NO SIGNIFICANT CHANGE AT THIS TIME, NO PAIN, NO ACUTE RESPIRATORY DISTRESS. BED LOCKED LOWEST POSITION CALL LIGHT WITH IN REACH ALL SAFETY MEASURE IMPLEMENTED PER HOSPITAL POLICY, PATIENT TURN Q2H,
[2020-01-24 20:00] VITALS: BP 131/63
[2020-01-24] MEDS: CEFEPIME 1 GM in IV D5W 50 ML IV SCH (21:55)
[2020-01-24] MEDS: INSULIN GLARGINE, 100 UNIT/ML CARTRIDGE SQ SCH (23:24)
[2020-01-25] VITALS: BP 139/69
[2020-01-25 04:00] VITALS: BP 121/68
[2020-01-25 06:31] LABS: BASOPHILS # (AUTO) 0.1 /CMM (0.0-0.2); BASOPHILS % (AUTO) 1.2 % (0.0-2.0); EOSINOPHILS % (AUTO) 2.5 % (0.0-6.0); HEMATOCRIT 31 % (39-51); HEMOGLOBIN 10.1 g/dL (13.5-17.5); LYMPHOCYTES # (AUTO) 1.7 /CMM (0.8-4.8); LYMPHOCYTES % (AUTO) 17.6 % (20.0-44.0); MEAN CORPUSCULAR HGB CONC 33 g/dl (31.0-36.0); MEAN CORPUSCULAR VOLUME 94 fL (80-96); MONOCYTES % (AUTO) 10.3 % (2.0-12.0); NEUTROPHILS # (AUTO) 6.6 /CMM (1.8-8.9); NEUTROPHILS % (AUTO) 68.4 % (43.0-81.0); PLATELET COUNT (AUTO) 395 /CMM (150-450); RED BLOOD CELL COUNT(AUTO) 3.26 MIL/uL (4.5-6.0); WHITE BLOOD COUNT (AUTO) 9.7 K/uL (4.3-11.0)
[2020-01-25 06:44] LABS: CALCIUM, SERUM 8.4 mg/dL (8.5-10.1); POTASSIUM 3.7 mmol/L (3.5-5.1)
[2020-01-25 06:46] LABS: CREATININE 10.3 mg/dL (0.6-1.3)
--- NOTE | 2020-01-25 07:10 | NUR ---
rn opening note: received patient in bed. awake, alert and oriented x3-4. able to make needs known. isolation in place for COVID-19. tele monitoring showing sinus rhythm. no pain reported by patient. IV site clean, dry, patent and intact. call light in reach. bed locked, low and at semi-ortega's position. side rails up x3. safety ensured and observed. will continue to monitor. Addendum: 01/25/20 at 1949 by ALEKSEY LOUIS RN On cont o2 via Nc @ 3lpm being tolerated well. NO SOB noted, not in respiratory distress.
[2020-01-25 08:00] VITALS: BP 128/67
[2020-01-25] MEDS: PANTOPRAZOLE 40 MG TABLET.DR PO SCH (08:30)
[2020-01-25] MEDS: BLOOD SUGAR DIAGNOSTIC 1 EACH STRIP IN SCH ×4 (08:30→22:26)
[2020-01-25] MEDS: MUPIROCIN OINT 2% 22 GM TUBE SCH ×2 (10:23→22:24)
[2020-01-25] MEDS: K PHOS NEUTRAL 250 MG TABLET PO SCH (10:23)
[2020-01-25] MEDS: SENNOSIDES 8.6 MG TABLET PO SCH ×2 (10:23→17:20)
[2020-01-25] MEDS: ARIPIPRAZOLE 5 MG TABLET PO SCH (10:23)
[2020-01-25] MEDS: ASPIRIN 81 MG TAB.CHEW PO SCH (10:23)
[2020-01-25] MEDS: LORATADINE 10 MG TABLET PO SCH (10:24)
[2020-01-25 12:00] VITALS: BP_SYST 146; BP_SYST 159; BP_DIAS 78
[2020-01-25] MEDS: INSULIN REGULAR, HUMAN 100 UNIT/ML 3 ML VIAL SQ PRN ×3 (15:02→22:25)
[2020-01-25 16:00] VITALS: BP 124/64
[2020-01-25] MEDS: HYDROCODONE/APAP 5/325MG 1 EACH TABLET PO PRN (17:20)
--- NOTE | 2020-01-25 19:00 | NUR ---
rn closing note: Patient in bed. awake, alert and oriented x3-4. able to make needs known. isolation in place for COVID-19. tele monitoring showing sinus rhythm. no pain reported by patient. IV site clean, dry, patent and intact. call light in reach. bed locked, low and at semi-ortega's position. side rails up x3. safety ensured and observed. Endorsed to oncoming shift for JOE. Addendum: 01/25/20 at 1949 by ALEKSEY LOUIS RN On cont o2 via Nc @ 3lpm being tolerated well. NO SOB noted, not in respiratory distress.
--- NOTE | 2020-01-25 19:00 | NUR ---
RN OPENING NOTE: PATIENT IN BED, AWAKE, AND VERBALLY RESPONSIVE. AAOX3-4. NO RESPIRATORY DISTRESS. ON O2 AT 3LPM VIA NC, TOLERATING AT THIS TIME. DENIES PAIN. ON RESET MERCHANDISER, NSR HR 60. PASHA MIDLINE C/D/I. FLUSHING WELL. SAFETY PRECAUTIONS IMPLEMENTED. BED LOCKED, ALARM ON, LOW POSITION. HOB ELEVATED. SIDE RAILS X 3 UP. CALL LIGHT PLACED WITHIN REACH. WILL CONT. TO MONITOR.
[2020-01-25 20:00] VITALS: BP 124/60
[2020-01-25] MEDS: CEFEPIME 1 GM in IV D5W 50 ML IV SCH (21:51)
[2020-01-25] MEDS: INSULIN GLARGINE, 100 UNIT/ML CARTRIDGE SQ SCH (22:24)
[2020-01-26] VITALS: BP 120/64
[2020-01-26] MEDS: HYDROCODONE/APAP 5/325MG 1 EACH TABLET PO PRN ×2 (00:35→08:38)
[2020-01-26 04:00] VITALS: BP_SYST 116; BP_SYST 121; BP_DIAS 56; BP_DIAS 61
[2020-01-26 06:51] LABS: POTASSIUM 3.6 mmol/L (3.5-5.1)
[2020-01-26 06:59] LABS: BASOPHILS % (AUTO) 0.3 % (0.0-2.0); EOSINOPHILS % (AUTO) 2.6 % (0.0-6.0); HEMATOCRIT 31 % (39-51); HEMOGLOBIN 10.2 g/dL (13.5-17.5); LYMPHOCYTES # (AUTO) 1.9 /CMM (0.8-4.8); LYMPHOCYTES % (AUTO) 20.6 % (20.0-44.0); MEAN CORPUSCULAR HGB CONC 33 g/dl (31.0-36.0); MEAN CORPUSCULAR VOLUME 95 fL (80-96); MONOCYTES # (AUTO) 1.1 /CMM (0.1-1.30); MONOCYTES % (AUTO) 12.1 % (2.0-12.0); NEUTROPHILS % (AUTO) 64.4 % (43.0-81.0); PLATELET COUNT (AUTO) 380 /CMM (150-450); RED BLOOD CELL COUNT(AUTO) 3.25 MIL/uL (4.5-6.0); WHITE BLOOD COUNT (AUTO) 9.3 K/uL (4.3-11.0)
[2020-01-26 07:01] LABS: CREATININE 10.4 mg/dL (0.6-1.3)
--- NOTE | 2020-01-26 07:07 | NUR ---
RN CLOSING NOTES: PATIENT IN NO ACUTE DISTRESS DURING SHIFT. NO SOB. NO PAIN. ENDORSED TO AM SHIFT NURSE FOR CONTINUITY OF CARE.
[2020-01-26] MEDS: BLOOD SUGAR DIAGNOSTIC 1 EACH STRIP IN SCH ×4 (07:30→21:21)
--- NOTE | 2020-01-26 07:30 | NUR ---
product owner Opening Note Received patient in bed. Awake, alert and oriented x2-3, and able to make needs known. Patient COVID+ droplet contact isolation. Tele monitoring showing sinus rhythm. No pain reported by patient. Patient is on bedrest. BM and voids in diaper. Renal Diet. Midline 18g site clean, dry, patent and intact. Call light within reach. Bed in locked and lowest position. Side rails up x3. Safety ensured and observed. Will continue to monitor.
[2020-01-26] MEDS: PANTOPRAZOLE 40 MG TABLET.DR PO SCH (07:57)
[2020-01-26 08:00] VITALS: BP 139/73
[2020-01-26] MEDS: LORATADINE 10 MG TABLET PO SCH (08:37)
[2020-01-26] MEDS: ARIPIPRAZOLE 5 MG TABLET PO SCH (08:37)
[2020-01-26] MEDS: ASPIRIN 81 MG TAB.CHEW PO SCH (08:39)
[2020-01-26] MEDS: SENNOSIDES 8.6 MG TABLET PO SCH ×2 (08:39→17:21)
[2020-01-26] MEDS: K PHOS NEUTRAL 250 MG TABLET PO SCH (08:39)
[2020-01-26] MEDS: MUPIROCIN OINT 2% 22 GM TUBE SCH ×2 (08:40→21:10)
[2020-01-26] MEDS: INSULIN REGULAR, HUMAN 100 UNIT/ML 3 ML VIAL SQ PRN (10:22)
[2020-01-26] MEDS ORDERED: POTASSIUM CHLORIDE 20 MEQ TAB.PRT.SR PO SCH (11:00)
[2020-01-26 11:22] LABS: MAGNESIUM 2.2 mg/dL (1.8-2.4)
[2020-01-26 12:00] VITALS: BP 132/67
--- NOTE | 2020-01-26 12:20 | NUR ---
pensionholder information clerk Notes Called pharmacy due to the fact that KDur 20meq was unable to be pulled from the [facility]. Instructed to place order again and try to reobtain medication from [facility].
[2020-01-26] MEDS ORDERED: POTASSIUM CHLORIDE 20 MEQ TAB.PRT.SR PO ONE (12:30)
[2020-01-26 16:00] VITALS: BP 116/56
--- NOTE | 2020-01-26 19:00 | NUR ---
order desk caller Closing Note Patient awake, alert and oriented x2-3, and able to make needs known. Patient COVID+ droplet contact isolation. Tele monitoring showing sinus rhythm. No pain reported by patient. Patient is on bedrest. BM and voids in diaper. Renal Diet. Midline 18g site clean, dry, patent and intact. Call light within reach. Bed in locked and lowest position. Side rails up x3. Last accucheck 80mg/dL no insulin given. Safety ensured and observed. Will continue to monitor.
--- NOTE | 2020-01-26 19:30 | NUR ---
ENGINEERING ASSOCIATE NOTE RECEIVED PATIENT AOX3 AWAKE RESPONSIVE TO VERBAL AND TACTILE STIMULI. BREATHING NORMAL, NO SOB NOTED. ON TELE MONITOR READING NSR HR IN 66'S. PASHA MIDLINE PATENT INTACT FLUSHED WELL NO S/S OF INFILTRATION NOTED. ON O2 3L/MIN VIA NC SATURATING 98% TOLERATING WELL. DENIES ANY PAIN OR DISCOMFORT. ALL SAFETY MEASURES IN PLACE, CALL LIGHT WITHIN REACH. WILL CONT TO MONITOR.
[2020-01-26 20:00] VITALS: BP 123/80
[2020-01-26] MEDS: CEFEPIME 1 GM in IV D5W 50 ML IV SCH (21:03)
[2020-01-26] MEDS: INSULIN GLARGINE, 100 UNIT/ML CARTRIDGE SQ SCH (22:00)
--- NOTE | 2020-01-26 22:00 | NUR ---
HOSTING ENGINEER NOTE INSULIN HELD BS WAS 79MG/DL VERIFY WITH CHARGE NURSE.
[2020-01-27] VITALS (7 sets, daily range): BP systolic 105–131; BP diastolic 51–84
[2020-01-27] MEDS: HYDROCODONE/APAP 5/325MG 1 EACH TABLET PO PRN (02:07)
--- NOTE | 2020-01-27 02:07 | NUR ---
RN NOTE PRN NORCO GIVEN ASD ORDERED, PT WAS C/O LOWER AND UPPER BACK PAIN 05/16.. WILL CONT TO MONITOR AND REASSESS FOR EFFECTIVENESS.
--- NOTE | 2020-01-27 03:07 | NUR ---
RN NOTE NORCO WAS EFFECTIVE PATIENT SLEEPING COMFORTABLY. NO S/S OF DISTRESS NOTED.
--- NOTE | 2020-01-27 06:18 | NUR ---
LOAN REPRESENTATIVE NOTE PATIENT REMAINS STABLE THOUGHT OUT THE SHIFT. BREATHING NORMAL,NO SOB NOTED. DUE MEDICATIONS WERE GIVEN ALONG WITH PRN PAIN MEDICATION ORDERED. ON TELE MONITOR READING SR IN 70'S. PASHA MIDLINE PATENT INTACT FLUSHED WELL NO S/S OF INFILTRATION NOTED. ON COVID + DROPLET ISOLATION. KEPT CLEAN DRY AND COMFORTABLE. ALL NEEDS ARE ATTENDED. ALL SAFETY MEASURES IN PLACE, CALL LIGHT WITHIN REACH. WILL ENDORSE TO AM NURSE FOR JOE.
[2020-01-27 06:37] LABS: BASOPHILS # (AUTO) 0.1 /CMM (0.0-0.2); BASOPHILS % (AUTO) 0.6 % (0.0-2.0); EOSINOPHILS % (AUTO) 3.4 % (0.0-6.0); HEMATOCRIT 33 % (39-51); HEMOGLOBIN 10.9 g/dL (13.5-17.5); LYMPHOCYTES # (AUTO) 1.9 /CMM (0.8-4.8); MEAN CORPUSCULAR HGB CONC 33 g/dl (31.0-36.0); MEAN CORPUSCULAR VOLUME 95 fL (80-96); MONOCYTES # (AUTO) 1.2 /CMM (0.1-1.30); MONOCYTES % (AUTO) 12.6 % (2.0-12.0); NEUTROPHILS % (AUTO) 63.4 % (43.0-81.0); PLATELET COUNT (AUTO) 406 /CMM (150-450); RED BLOOD CELL COUNT(AUTO) 3.46 MIL/uL (4.5-6.0); WHITE BLOOD COUNT (AUTO) 9.5 K/uL (4.3-11.0)
[2020-01-27 07:00] LABS: CALCIUM, SERUM 8.2 mg/dL (8.5-10.1); POTASSIUM 4.1 mmol/L (3.5-5.1)
[2020-01-27 07:17] LABS: CREATININE 10.1 mg/dL (0.6-1.3)
[2020-01-27] MEDS: BLOOD SUGAR DIAGNOSTIC 1 EACH STRIP IN SCH ×4 (07:30→21:18)
[2020-01-27] MEDS: MUPIROCIN OINT 2% 22 GM TUBE SCH ×2 (09:00→21:04)
[2020-01-27] MEDS: ARIPIPRAZOLE 5 MG TABLET PO SCH (09:21)
[2020-01-27] MEDS: K PHOS NEUTRAL 250 MG TABLET PO SCH (09:21)
[2020-01-27] MEDS: SENNOSIDES 8.6 MG TABLET PO SCH ×2 (09:21→17:42)
[2020-01-27] MEDS: LORATADINE 10 MG TABLET PO SCH (09:22)
[2020-01-27] MEDS: ASPIRIN 81 MG TAB.CHEW PO SCH (09:22)
[2020-01-27] MEDS: PANTOPRAZOLE 40 MG TABLET.DR PO SCH (09:22)
--- NOTE | 2020-01-27 09:29 | NUR ---
Handoff with Ms. Justa RN. Guille Barber RN
--- NOTE | 2020-01-27 12:16 | NUR ---
WET ROASTER NOTES NO INSULIN ADMINISTRATED DUE TO 72 BLOOD GLUCOSE LEVEL.
--- NOTE | 2020-01-27 15:14 | NUR ---
WAYS OPERATOR NOTES PATIENT HAD SEIZURE DURING LINEN CHANGE. STARTED AT 1514 FOR 2 MINUTES 40 SECONDS. PATIENT DID NOT REMEMBER THE INCIDENT POST SEIZURE. HR 78 BP 127/68 O2 100 PERCENT ON [address] WILSON.
--- NOTE | 2020-01-27 18:21 | NUR ---
INDEPENDENT CROP CONSULTANT NOTES NO INSULIN GIVEN DUE TO LOW BLOOD GLUCOSE OF 68
--- NOTE | 2020-01-27 18:46 | NUR ---
COMMUNICATION SPEC NOTES PATIENT IN BED SLEEPING COMFORTABLY. WHEN AWAKE A/O 2-3 WITH SOME CONFUSION. LOW NUTRITION INPUT. BLOOD GLUCOSE LEVEL 68 AT LAST CHECKED AND ORANGE JUICE GIVEN WITH APPLE SAUCE. BED IS PADDED AT THE LOWEST POSITION LOCKED. CALL LIGHT WITHIN REACH REPORT HANDED TO CAPACITY MANAGEMENT SPECIALIST NURSE.
[2020-01-27] MEDS: CEFEPIME 1 GM in IV D5W 50 ML IV SCH (21:00)
[2020-01-27] MEDS: INSULIN GLARGINE, 100 UNIT/ML CARTRIDGE SQ SCH (21:54)
--- NOTE | 2020-01-27 21:56 | NUR ---
RN NOTES BLOOD SUGAR-77, LANTUS 25 UNITS WAS NOT GIVEN, PT REFUSED TO EAT
[2020-01-28] VITALS: BP 128/67
[2020-01-28 04:00] VITALS: BP 120/62
[2020-01-28] MEDS ORDERED: VALPROATE 1,000 MG in IV NS 0.9% 100 ML IV STA (05:40)
[2020-01-28] MEDS ORDERED: VALPROATE 500 MG/5 ML VIAL IV ONE (06:05)
--- NOTE | 2020-01-28 06:30 | NUR ---
RN NOTES BLOOD SUGAR-77- ORANGE JUICE GIVEN, MORNING CARE RENDERED, DENIES PAIN, NO SOB, SIDERAILSUPX2, PT. NEEDS ATTENDED
[2020-01-28] MEDS: BLOOD SUGAR DIAGNOSTIC 1 EACH STRIP IN SCH ×4 (06:33→21:09)
[2020-01-28 06:51] LABS: BASOPHILS # (AUTO) 0.1 /CMM (0.0-0.2); BASOPHILS % (AUTO) 1.3 % (0.0-2.0); EOSINOPHILS % (AUTO) 1.7 % (0.0-6.0); HEMATOCRIT 36 % (39-51); HEMOGLOBIN 11.5 g/dL (13.5-17.5); LYMPHOCYTES % (AUTO) 17.8 % (20.0-44.0); MEAN CORPUSCULAR HGB CONC 32 g/dl (31.0-36.0); MEAN CORPUSCULAR VOLUME 97 fL (80-96); MONOCYTES # (AUTO) 1.3 /CMM (0.1-1.30); MONOCYTES % (AUTO) 11.8 % (2.0-12.0); NEUTROPHILS # (AUTO) 7.6 /CMM (1.8-8.9); NEUTROPHILS % (AUTO) 67.4 % (43.0-81.0); PLATELET COUNT (AUTO) 436 /CMM (150-450); RED BLOOD CELL COUNT(AUTO) 3.69 MIL/uL (4.5-6.0); WHITE BLOOD COUNT (AUTO) 11.2 K/uL (4.3-11.0)
--- NOTE | 2020-01-28 07:30 | NUR ---
JANITOR HEAD AM NOTE RECEIVED PATIENT AOX2 AWAKE RESPONSIVE TO VERBAL AND TACTILE STIMULI. BREATHING NORMAL, NO SOB NOTED. ON TELE MONITOR READING NSR HR IN 88. DENIES PAIN, PASHA MIDLINE PATENT INTACT FLUSHES WELL NO S/S OF INFILTRATION NOTED. ON O2 3L/MIN VIA NC SATURATING 100% TOLERATING WELL. SEE NURSING FLOWSHEET FOR SKIN ISSUES. ALL SAFETY MEASURES IN PLACE, CALL LIGHT WITHIN REACH. WILL CONT TO MONITOR.
[2020-01-28 08:00] VITALS: BP 118/58
[2020-01-28 08:05] LABS: CALCIUM, SERUM 8.5 mg/dL (8.5-10.1); POTASSIUM 4.6 mmol/L (3.5-5.1)
[2020-01-28] MEDS: ARIPIPRAZOLE 5 MG TABLET PO SCH (08:50)
[2020-01-28] MEDS: ASPIRIN 81 MG TAB.CHEW PO SCH (08:50)
[2020-01-28] MEDS: LORATADINE 10 MG TABLET PO SCH (08:50)
[2020-01-28] MEDS: DIVALPROEX SODIUM 500 MG TABLET.DR PO SCH ×2 (08:50→21:10)
[2020-01-28] MEDS: K PHOS NEUTRAL 250 MG TABLET PO SCH (08:50)
[2020-01-28] MEDS: SENNOSIDES 8.6 MG TABLET PO SCH ×2 (08:51→18:33)
[2020-01-28] MEDS: PANTOPRAZOLE 40 MG TABLET.DR PO SCH (08:51)
[2020-01-28] MEDS: MUPIROCIN OINT 2% 22 GM TUBE SCH ×2 (08:52→21:09)
--- NOTE | 2020-01-28 09:30 | NUR ---
RN NOTES DUE MEDS GIVEN
[2020-01-28 12:00] VITALS: BP 113/56
[2020-01-28 16:00] VITALS: BP_SYST 121; BP_SYST 124; BP_DIAS 68
--- NOTE | 2020-01-28 19:14 | NUR ---
CARTON AND CAN SUPPLY SUPERVISOR CLOSING NOTE PATIENT RESTING. BREATHING NORMAL, NO SOB NOTED. ON TELE MONITOR READING NSR HR IN 8Os - 90s. DENIES PAIN, PASHA MIDLINE PATENT INTACT FLUSHES WELL NO S/S OF INFILTRATION NOTED. ON O2 3L/MIN VIA NC SATURATING 100% TOLERATING WELL. PRESCRIBED WOUND TREATMENT AND PM CARE DONE EARLIER. ALL NEEDS MET. ALL SAFETY MEASURES IN PLACE, CALL LIGHT WITHIN REACH. WILL ENDORSE TO NEXT SHIFT FOR JOE. PATIENT SEEN BY KRISTIN BENITEZ RELEASE ENGINEER FOR DR. SUSAN ONEILL. PER HER, PATIENT NEEDS ANOTHER COVID TESTING, IF NEGATIVE WILL DO PERMACATH. BUT FOR NOW WILL DO GREG CATH PLACEMENT TOMORROW. ALL SUPPLIES ORDERED BY HER. ENDORSED TO GENESIS FOR JOE.
[2020-01-28] MEDS ORDERED: HEPARIN-LOCK FLUSH PORCINE PF 100 UNITS/1 ML (10 ML)DISP.SYRIN IVF ONE (19:30)
[2020-01-28 20:00] VITALS: BP 128/68
[2020-01-28] MEDS ORDERED: LIDOCAINE 1%-EPI 1:200,000 SDV 10 ML VIAL IJ ONE (20:00)
--- NOTE | 2020-01-28 20:00 | NUR ---
TELE-1/CHILDREN LIBRARIAN TRIED TO CALL PTS BROTHER DANIEL TILLMAN [phone] FOR HD CATH INSERTION CONSENT. NO ANSWER. LEFT MESSAGE FOR BROTHER TO CALL BACK DERRICK. WILL CONTINUE TO MONITOR.
[2020-01-28] MEDS: CEFEPIME 1 GM in IV D5W 50 ML IV SCH (20:02)
--- NOTE | 2020-01-28 21:00 | NUR ---
TELE-1/PHOTOGRAPHIC ENLARGER OPERATOR PT SWABBED FOR COVID-19 TOLERATED WELL. SAMPLE TAKEN TO LAB BY STEVE LAKE. WILL CONTINUE TO MONITOR.
[2020-01-28] MEDS: INSULIN GLARGINE, 100 UNIT/ML CARTRIDGE SQ SCH (21:28)
--- NOTE | 2020-01-28 21:29 | NUR ---
MED NOTE: UMER HELD PT POC GLUCOSE 82
--- NOTE | 2020-01-28 22:23 | NUR ---
TELE-1/KNUCKLER PT BROTHER DANIEL CALLED BACK CONSENT OBTAINED FOR HD CATH PLACEMENT WITNESS BY MYSELF AND [place].
[2020-01-29] VITALS (7 sets, daily range): BP systolic 118–132; BP diastolic 58–79
[2020-01-29 06:28] LABS: BASOPHILS # (AUTO) 0.1 /CMM (0.0-0.2); EOSINOPHILS % (AUTO) 2.1 % (0.0-6.0); HEMATOCRIT 35 % (39-51); HEMOGLOBIN 11.7 g/dL (13.5-17.5); LYMPHOCYTES # (AUTO) 1.8 /CMM (0.8-4.8); MEAN CORPUSCULAR HGB CONC 33 g/dl (31.0-36.0); MEAN CORPUSCULAR VOLUME 95 fL (80-96); MONOCYTES # (AUTO) 1.1 /CMM (0.1-1.30); NEUTROPHILS # (AUTO) 6.7 /CMM (1.8-8.9); NEUTROPHILS % (AUTO) 67.9 % (43.0-81.0); PLATELET COUNT (AUTO) 430 /CMM (150-450); RED BLOOD CELL COUNT(AUTO) 3.72 MIL/uL (4.5-6.0); WHITE BLOOD COUNT (AUTO) 9.9 K/uL (4.3-11.0)
[2020-01-29 06:44] LABS: CALCIUM, SERUM 8.8 mg/dL (8.5-10.1); POTASSIUM 4.5 mmol/L (3.5-5.1)
[2020-01-29 06:45] LABS: CREATININE 7.6 mg/dL (0.6-1.3)
--- NOTE | 2020-01-29 07:30 | NUR ---
HUMAN RESOURCES ADMINISTRATOR AM NOTE RECEIVED PATIENT AOX2 AWAKE RESPONSIVE TO VERBAL AND TACTILE STIMULI. ON O2 3L/MIN VIA NC SATURATING 100% TOLERATING WELL BREATHING NORMAL, NO SOB NOTED. ON TELE MONITOR READING NSR HR IN 88. DENIES PAIN, PASHA MIDLINE PATENT INTACT FLUSHES WELL NO S/S OF INFILTRATION NOTED. . SEE NURSING FLOWSHEET FOR SKIN ISSUES. ALL SAFETY MEASURES IN PLACE, CALL LIGHT WITHIN REACH. WILL CONT TO MONITOR. PATIENT FOR GREG CATH PLACEMENT TODAY C/O DR. Harsha ONEILL AND KRISTIN BENITEZ. CONSENT SIGNED. WAITING FOR COVID TEST #2 RESULT DONE LAST NIGHT. IF NEGATIVE, WILL DO PERMACATH PER KRISTIN BENITEZ.
[2020-01-29] MEDS: SENNOSIDES 8.6 MG TABLET PO SCH ×2 (08:07→17:21)
[2020-01-29] MEDS: ARIPIPRAZOLE 5 MG TABLET PO SCH (08:07)
[2020-01-29] MEDS: K PHOS NEUTRAL 250 MG TABLET PO SCH (08:07)
[2020-01-29] MEDS: BLOOD SUGAR DIAGNOSTIC 1 EACH STRIP IN SCH ×4 (08:07→22:04)
[2020-01-29] MEDS: PANTOPRAZOLE 40 MG TABLET.DR PO SCH (08:07)
[2020-01-29] MEDS: LORATADINE 10 MG TABLET PO SCH (08:08)
[2020-01-29] MEDS: DIVALPROEX SODIUM 500 MG TABLET.DR PO SCH ×2 (08:08→21:13)
[2020-01-29] MEDS: ASPIRIN 81 MG TAB.CHEW PO SCH (08:08)
[2020-01-29] MEDS: MUPIROCIN OINT 2% 22 GM TUBE SCH ×2 (08:41→22:44)
--- NOTE | 2020-01-29 09:30 | NUR ---
RN NOTES DUE MEDS GIVEN
[2020-01-29] MEDS ORDERED: ALBUMIN 25% 25 GM in PREMIX 1 EA IV PRN (13:30)
--- NOTE | 2020-01-29 19:10 | NUR ---
RN OPENING NOTES: PATIENT IN BED. NO ACUTE DISTRESS. DR. MARIA DOLORES ONEILL AT BEDSIDE, PROCEDURE STILL ONGOING FOR NEW GREG CATH DIALYSIS INSERTION. 1944: DR. MARIA DOLORES ONEILL DONE WITH THE PROCEDURE AND ORDERED CXR. NOTED AND CARRIED OUT. 2099: RELAYED CXR RESULT TO DR. MARIA DOLORES ONEILL. PER , OK TO USE NEW DIALYSIS SITE.
--- NOTE | 2020-01-29 19:12 | NUR ---
GROOVING LATHE TENDER CLOSING NOTE PATIENT RESTING. BREATHING NORMAL, NO SOB NOTED. ON TELE MONITOR READING NSR HR IN 8Os - 90s. DENIES PAIN, PASHA MIDLINE PATENT INTACT FLUSHES WELL NO S/S OF INFILTRATION NOTED. ON O2 3L/MIN VIA NC SATURATING 100% TOLERATING WELL. PRESCRIBED WOUND TREATMENT AND PM CARE DONE EARLIER. ALL NEEDS MET. ALL SAFETY MEASURES IN PLACE, CALL LIGHT WITHIN REACH. WILL ENDORSE TO NEXT SHIFT FOR JOE. S/P GREG CATH PLACEMENT BY DR. MARIA DOLORES ONEILL AND KRISTIN BENITEZ. CXR STAT ORDERED.
[2020-01-29] MEDS: CEFEPIME 1 GM in IV D5W 50 ML IV SCH (21:12)
--- NOTE | 2020-01-29 22:30 | NUR ---
RN NOTE: AT 2200: DIALYSIS NURSE AT BEDSIDE. ONGOING DIALYSIS. AT 2330: DIALYSIS DONE. PATIENT TOLERATED PROCEDURE WELL. GREG CATH INTACT. PER DIALYIS NURSE, 500CC WAS REMOVED.
--- NOTE | 2020-01-29 22:45 | NUR ---
RN NOTE: PATIENT'S BS 159. BS HAS BEEN 60-70s IN THE MORNING X 2 DAYS. LANTUS DOSE WAS HELD X 2 NIGHTS. PER AM SHIFT RN'S ENDORSEMENT, PATIENT WAS NOT EATING MUCH DURING THE DAY. TATA FARRELL MADE AWARE AND ORDERED TO DC LANTUS. WILL CONT. TO MONITOR.
[2020-01-30] VITALS: BP 119/68
[2020-01-30 04:00] VITALS: BP 121/79
--- NOTE | 2020-01-30 07:04 | NUR ---
RN CLOSING NOTE: PATIENT IN BED, ASLEEP BUT EASILY AROUSABLE. NO RESPIRATORY DISTRESS. NO C/O PAIN. PASHA MIDLINE C/D/I; FLUSHING WELL. TKO. SAFETY PRECAUTIONS IMPLEMENTED. BED LOCKED, ALARM ON, LOW POSITION. PADDED SIDE RAILS. HOB ELEVATED. SIDE RAILS X 2 UP. TURNED AND REPOSITIONED Q2H DURING SHIFT. IN STABLE CONDITION. CALL LIGHT WITHIN REACH. WILL CONT. TO MONITOR.
[2020-01-30] MEDS: BLOOD SUGAR DIAGNOSTIC 1 EACH STRIP IN SCH ×4 (07:30→21:19)
--- NOTE | 2020-01-30 07:30 | NUR ---
RN OPENING NOTE: RECEIVED PATIENT IN BED THIS MORNING. PATIENT IS ALERT AND ORIENTED X2, RESPONDS APPROPRIATELY. PATIENT IS ON O2 3L/MIN VIA NC, SATING WELL. NO SIGNS OF RESPIRATORY DISTRESS NOTED. NO SIGS OF ACUTE DISTRESS NOTED. ON TELE MONITOR, SR 84 WITH 1ST DEGREE HEART BLOCK NOTED. PASHA MIDLINE, C/D/I, FLUSHES WELL, NO SIGNS OF COMPLICATIONS NOTED. RIGHT EXTERNAL JUGULAR, C/D/I, NO SIGNS OF COMPLICATIONS NOTED. PATIENT ON ISOLATION PRECAUTIONS FOR COVID 19 (+). SAFETY MEASURES IMPLEMENTED, BED IN LOWEST POSITION, LOCKED, SIDE RAILS UP, CALL LIGHT WITHIN REACH. WILL CONTINUE TO MONITOR PATIENT FOR ANY CHANGES.
[2020-01-30 08:00] VITALS: BP 126/74
[2020-01-30] MEDS: DIVALPROEX SODIUM 500 MG TABLET.DR PO SCH ×2 (08:38→20:35)
[2020-01-30] MEDS: SENNOSIDES 8.6 MG TABLET PO SCH ×2 (08:38→16:55)
[2020-01-30] MEDS: K PHOS NEUTRAL 250 MG TABLET PO SCH (08:38)
[2020-01-30] MEDS: ASPIRIN 81 MG TAB.CHEW PO SCH (08:38)
[2020-01-30] MEDS: ARIPIPRAZOLE 5 MG TABLET PO SCH (08:38)
[2020-01-30] MEDS: LORATADINE 10 MG TABLET PO SCH (08:38)
[2020-01-30] MEDS: PANTOPRAZOLE 40 MG TABLET.DR PO SCH (08:39)
[2020-01-30] MEDS: MUPIROCIN OINT 2% 22 GM TUBE SCH ×2 (08:39→20:48)
[2020-01-30] MEDS ORDERED: CEFE1FRO IV (10:51)
[2020-01-30] MEDS ORDERED: DIVA500T2 PO (10:51)
[2020-01-30 12:00] VITALS: BP 119/64
[2020-01-30 16:00] VITALS: BP 110/71
--- NOTE | 2020-01-30 19:18 | NUR ---
RN CLOSING NOTE: PATIENT REMAINS IN BED. NO SIGNS OF RESPIRATORY DISTRESS NOTED. NO SIGNS OF ACUTE DISTRESS NOTED. ON TELE MONITOR, SINUS TACHY 127. SAFETY MEASURES IMPLEMENTED, BED IN LOWEST POSITION, LOCKED, SIDE RAILS UP, CALL LIGHT WITHIN REACH. ENDORSED TO ONCOMING RN FOR CONTINUITY OF CARE. Addendum: 01/30/20 at 1926 by JERROD MENDOZA RN CORRECTION: PATIENT TELE READING SR 90
[2020-01-30 20:00] VITALS: BP 101/43
--- NOTE | 2020-01-30 20:00 | NUR ---
oncology rn: received report form lonnie cortes at 1905. pt covid +,ppe utilized. on tele monitoring sr with bbb and 1st degree avblock. a/o x2 on 3l oxygen via nc, respirations even and unlabored. pt s/p hd, cleaning only, nothing was removed. elizabeth midline patent and flushing well, infusing with ns at tko. aspiration precaution initiated, on seizure precautions. vs taken and recorded by insurance assistant, afebrile. safety precautions for fall initiated, call light in reach, will continue monitoring pt.
[2020-01-30] MEDS: CEFEPIME 1 GM in IV D5W 50 ML IV SCH (20:35)
[2020-01-30] MEDS: INSULIN REGULAR, HUMAN 100 UNIT/ML 3 ML VIAL SQ PRN (21:19)
[2020-01-31] VITALS (8 sets, daily range): BP systolic 99–127; BP diastolic 58–74
--- NOTE | 2020-01-31 06:28 | NUR ---
END OF SHIFT REPORT: PT REMAINS ON 2L OXYGEN AND REMAINS ON CONTINUOUS PULSE OXIMETRY. REMAINS ON SINUS RHYTHM BBB WITH 1ST DEGREE AV BLOCK HR 70. IV ACCESS REMAINS PATENT AND FLUSHING WELL, NS AT TKO, NO S/S OF IV INFILTRATION NOTED. REMAINS AFEBRILE. KEPT ON SEIZURE AND ASPIRATION PRECAUTIONS. WOUND CARE DONE ORDERED, AM CARE PROVIDED BY RN AND GROUNDS CARETAKER. ALL DUE MEDS ADMINISTERED. ACCU CHECK PERFORMED, RESULT OBTAINED IS 183 WITH 3UNITS OF INSULIN GIVEN PER SLIDING SCALE. VS REMAINS STABLE, NEEDS ATTENDED. POSSIBLE DC ONCE CLEARED BY NEPHRO. SAFETY PRECAUTIONS FOR FALL REMAINS ENGAGED, CALL LIGHT IN REACH, WILL ENDORSE TO DAY RN FOR CONTINUITY OF CARE.
[2020-01-31] MEDS: PANTOPRAZOLE 40 MG TABLET.DR PO SCH (07:46)
--- NOTE | 2020-01-31 08:00 | NUR ---
CITY JAILER OPENING NOTES RECEIVED PT AWAKE, A/O 2-3, RESPONSIVE TO ALL STIMULI, RUSSIAN/TURKS AND [place]IC[place] ISLANDER SPEAKING. RESPIRATION UNLABORED ON O2 AT 2LPM VIA N/C SATING 99%. ABD SOFT AND NON DISTENDED, ON DIAPER ON, LAST HD 01/29, 0ML OUTPUT. SKIN WARM TO TOUCH AND DRY. PT DENIES PAIN. IV SITE AT RIGHT UPPER ARM PATENT IN FLUSHING, SITE NO S/SX OF INFILTRATION, ON TKO OF NS. GREG CATHETER AT IJ SITE DRESSING CLEAN. BOTH LEGS OFFLOAD. TELE MONITOR SHOWS SR BBB WITH 1ST AVB 98 BPM. ALL CONCERNS ATTENDED AT THIS TIME. CALL LIGHT WITHIN REACH. BED IN LOW LOCKED POSITION, HOB ELEVATED,SR PADDED FOR SAFETY. WILL CONTINUE TO EVALUATE CARE.
--- NOTE | 2020-01-31 08:04 | NUR ---
DIRECTOR REGULATORY AGENCY NOTES PT KEPT IN ISOLATION DUE TO + COVID-19 TESTED TWICE. PPE USED PROPERLY. KEPT DOOR CLOSE WITH CLOSE MONITORING. FULL CODE.
[2020-01-31] MEDS: BLOOD SUGAR DIAGNOSTIC 1 EACH STRIP IN SCH ×4 (08:29→21:59)
[2020-01-31] MEDS: LORATADINE 10 MG TABLET PO SCH (08:30)
[2020-01-31] MEDS: DIVALPROEX SODIUM 500 MG TABLET.DR PO SCH ×2 (08:30→21:41)
[2020-01-31] MEDS: K PHOS NEUTRAL 250 MG TABLET PO SCH (08:30)
[2020-01-31] MEDS: ARIPIPRAZOLE 5 MG TABLET PO SCH (08:30)
[2020-01-31] MEDS: SENNOSIDES 8.6 MG TABLET PO SCH ×2 (08:30→16:23)
[2020-01-31] MEDS: ASPIRIN 81 MG TAB.CHEW PO SCH (08:30)
[2020-01-31] MEDS: MUPIROCIN OINT 2% 22 GM TUBE SCH ×2 (08:30→21:42)
--- NOTE | 2020-01-31 11:45 | NUR ---
CHEF DE CUISINE NOTES PT ASLEEP, SATING 100% AT 2 LPM, PPE USED. CONTACT ISOLATION PRECAUTION INTERVENED. CONTINUE TO MONITOR.
--- NOTE | 2020-01-31 15:12 | NUR ---
INSPECTOR HEALTH CARE FACILITIES NOTES BED BATH GIVEN TO PT. PPE USED PROPERLY. PT AT 1 LPM VIA N/C SATING 100%, CONTINUE TO TITRATE ORDERED BY PULMO. CONTINUE TO MONITOR
[2020-01-31] MEDS: INSULIN REGULAR, HUMAN 100 UNIT/ML 3 ML VIAL SQ PRN ×2 (16:54→22:01)
--- NOTE | 2020-01-31 18:40 | NUR ---
ANCHOR TACKER CLOSING NOTES PT A/OX 2-3 WITH EPISODES OF CONFUSION, RESPIRATION WITH NO PRESENCE OF ACUTE RESPIRATORY DISTRESS, ON O2 AT 1LPM VIA N/C SATING 100%, SOB IN MINIMAL EXERTION SUCH REPOSITIONING, HOB SEMI FOWLERS. ABD SOFT AND NON DISTENDED WITH ACTIVE BOWEL SOUNDS, BM X1, DIAPER CHANGE X2 WITH YELLOW URINE. SKIN WARM TO TOUCH AND DRY, WOUND TREATMENT DRESSING CLEAN AND DRY, BLE OFFLOAD. DENIES PAIN AND DISCOMFORT. ON CONTACT/DROPLET ISOLATION DUE TO + COVID-19. PPE USED PROPERLY. IV SITE AT RIGHT UPPER ARM MIDLINE, PATENT IN FLUSHING, SITE WITH NO S/SX OF INFILTRATION. GREG CATHETER RIGHT IJ CLEAN IN DRESSING. BED IN LOW LOCKED POSITION, SR X4 WITH PAD FOR SAFETY. CALL LIGHT WITHIN REACH. TELE MONITOR SHOWS SR BBB 1ST AVB 96, BASELINE FROM BEGINNING OF THE SHIFT. ENDORSED PT CARE TO NEXT SHIFT.
[2020-01-31] MEDS: CEFEPIME 1 GM in IV D5W 50 ML IV SCH (21:41)
[2020-02-01] VITALS: BP 117/70
[2020-02-01 04:00] VITALS: BP 119/73
[2020-02-01] MEDS: DIVALPROEX SODIUM 500 MG TABLET.DR PO SCH ×2 (06:04→12:29)
--- NOTE | 2020-02-01 06:50 | NUR ---
RN CLOSING NOTE NO ACUTE CHANGES OBSERVED OVERNIGHT. WILL ENDORSE TO MORNING RN FOR CONTINUATION OF CARE.
--- NOTE | 2020-02-01 07:30 | NUR ---
GEAR SHAVER SET UP OPERATOR AM NOTE RECEIVED PATIENT AOX2 AWAKE RESPONSIVE TO VERBAL AND TACTILE STIMULI. ON O2 3L/MIN VIA NC SATURATING 95% TOLERATING WELL BREATHING NORMAL, NO SOB NOTED. ON TELE MONITOR READING SR HR IN 77. DENIES PAIN, PASHA MIDLINE PATENT INTACT FLUSHES WELL NO S/S OF INFILTRATION NOTED. RT IJ HD CATH CDI DRESSING. SEE NURSING FLOWSHEET FOR SKIN ISSUES. ALL SAFETY MEASURES IN PLACE, CALL LIGHT WITHIN REACH. WILL CONT TO MONITOR.
[2020-02-01 08:00] VITALS: BP 136/60
[2020-02-01] MEDS: BLOOD SUGAR DIAGNOSTIC 1 EACH STRIP IN SCH ×2 (08:02→12:18)
[2020-02-01] MEDS: PANTOPRAZOLE 40 MG TABLET.DR PO SCH (08:03)
[2020-02-01] MEDS: ARIPIPRAZOLE 5 MG TABLET PO SCH (09:07)
[2020-02-01] MEDS: K PHOS NEUTRAL 250 MG TABLET PO SCH (09:08)
[2020-02-01] MEDS: SENNOSIDES 8.6 MG TABLET PO SCH (09:08)
[2020-02-01] MEDS: LORATADINE 10 MG TABLET PO SCH (09:08)
[2020-02-01] MEDS: ASPIRIN 81 MG TAB.CHEW PO SCH (09:09)
[2020-02-01] MEDS: MUPIROCIN OINT 2% 22 GM TUBE SCH (09:09)
--- NOTE | 2020-02-01 09:30 | NUR ---
RN NOTES DUE MEDS GIVEN
[2020-02-01 12:00] VITALS: BP 139/75
--- NOTE | 2020-02-01 14:25 | NUR ---
RN NOTES PATIENT TO BE DISCHARGE TO [facility] TODAY PER MD IN STABLE CONDITION, WILL PROVIDE DC INSTRUCTIONS, HEALTH TEACHINGS AND MED RECON LIST. TO FOLLOW UP WITH PCP IN 1-2 WEEKS OR PER FACILITY PROTOCOL. PASHA MIDLINE IN PLACE, CDI DRESSING, FLUSHES WELL, SITE CLEAR. PHOTOS TAKEN LAST NIGHT, ALL BELONGINGS CHECKED AND RETURNED, ALL PAPERWORKS SIGNED. LAST HD TODAY CLEANSING ONLY. REPORT GIVEN TO KASI LAKE .NET DEVELOPER AT FACILITY. AMBULANCE DELIVERY MANAGER AT 1500.
--- NOTE | 2020-02-01 15:48 | NUR ---
JANITORIAL SERVICES SUPERVISOR NOTES PATIENT DISCHARGED AND PICKED UP BY 2 AMBULANCE CREW AND TRANSPORTED TO FACILITY. STABLE CONDITION.
== END 2020-02-01 15:48 | DRG 280 ==
LOC: ER 01-18 00:01 → TELE1 01-18 01:18
PROVIDERS: ADMIT Internal Medicine; ATTEND Internal Medicine
PROC: 5A1D70Z Performance of Urinary Filtration, Intermittent, Less than 6 Hours Per Day (ICD-10-PCS; 2020-01-19)
PROC: 05PYX3Z Removal of Infusion Device from Upper Vein, External Approach (ICD-10-PCS; principal; 2020-01-22)
PROC: 05HY33Z Insertion of Infusion Device into Upper Vein, Percutaneous Approach (ICD-10-PCS; 2020-01-22)
PROC: 02HV33Z Insertion of Infusion Device into Superior Vena Cava, Percutaneous Approach (ICD-10-PCS; 2020-01-29)
PROC: B548ZZA Ultrasonography of Superior Vena Cava, Guidance (ICD-10-PCS; 2020-01-29)
DX: T80.211A Bloodstream infection due to central venous catheter, initial encounter (principal); U07.1 COVID-19; I21.A1 Myocardial infarction type 2; N18.6 End stage renal disease; I50.23 Acute on chronic systolic (congestive) heart failure; J12.89 Other viral pneumonia; A41.89 Other specified sepsis; A41.59 Other Gram-negative sepsis; E44.1 Mild protein-calorie malnutrition; D68.69 Other thrombophilia; L97.429 Non-pressure chronic ulcer of left heel and midfoot with unspecified severity; I13.2 Hypertensive heart and chronic kidney disease with heart failure and with stage 5 chronic kidney disease, or end stage renal disease; I69.354 Hemiplegia and hemiparesis following cerebral infarction affecting left non-dominant side; G93.40 Encephalopathy, unspecified; Z79.4 Long term (current) use of insulin; Z99.2 Dependence on renal dialysis; B96.4 Proteus (mirabilis) (morganii) as the cause of diseases classified elsewhere; E11.42 Type 2 diabetes mellitus with diabetic polyneuropathy; E11.22 Type 2 diabetes mellitus with diabetic chronic kidney disease; F03.90 Unspecified dementia, unspecified severity, without behavioral disturbance, psychotic disturbance, mood disturbance, and anxiety; F20.9 Schizophrenia, unspecified; G40.909 Epilepsy, unspecified, not intractable, without status epilepticus; I25.10 Atherosclerotic heart disease of native coronary artery without angina pectoris; Z95.1 Presence of aortocoronary bypass graft; E87.6 Hypokalemia; E88.09 Other disorders of plasma-protein metabolism, not elsewhere classified; Z68.21 Body mass index [BMI] 21.0-21.9, adult; E11.51 Type 2 diabetes mellitus with diabetic peripheral angiopathy without gangrene; L97.529 Non-pressure chronic ulcer of other part of left foot with unspecified severity; I70.244 Atherosclerosis of native arteries of left leg with ulceration of heel and midfoot; I70.245 Atherosclerosis of native arteries of left leg with ulceration of other part of foot; R74.0 Nonspecific elevation of levels of transaminase and lactic acid dehydrogenase [LDH]; F39 Unspecified mood [affective] disorder; Y84.8 Other medical procedures as the cause of abnormal reaction of the patient, or of later complication, without mention of misadventure at the time of the procedure; Y92.129 Unspecified place in nursing home as the place of occurrence of the external cause; K82.8 Other specified diseases of gallbladder; Z89.411 Acquired absence of right great toe; E11.621 Type 2 diabetes mellitus with foot ulcer
CPT/HCPCS: 36415; 36600; 70450-TC; 71045-TC; 74160-TC; 76705-TC; 80048-TC; 80053-TC; 80061-TC; 80076-TC; 80164-TC; 80202-TC; 82728-TC; 82803-TC; 82962-TC; 83605-TC; 83615-TC; 83735-TC; 83880; 84100-TC; 84443-TC; 84484-TC; 85025-TC; 85730-TC; 86140-TC; 87040-TC; 87081-TC; 87186-TC; 88300-TC; 90935-TC; 92611-TC; A4216; A6403; G0378; J0456; J0692; J1642; J1644; J1815; J2543; J3370; J3490; J7030; J7050; J7060; P9047; Q9967

== ENCOUNTER 2020-06-07 12:21 | Inpatient (IN) | payer MEDICARE, OTHER ==
[~2020-06-07] VITALS: Ht 167.6 cm; Wt 57.2 kg
[~2020-06-07 12:21] MED LIST changes: +CEFE1FRO IV; +DIVA500T2 PO
--- NOTE | 2020-06-07 12:21 | NUR ---
PT RIKKI FROM [facility] C/O FOR DIALYSIS CATH INSERTION "PT PULLED OUT HIS DIALYSIS CATH" PT IS AAOX3, NOT IN RESPIRATORY DISTRESS, HOOKED TO MANAGER QUALITY IMPROVEMENT. KEPT RESTED AND COMFORTABLE. WILL CONTINUE TO MONITOR.
--- NOTE | 2020-06-07 12:30 | NUR ---
PT SEEN AND EXAMINED BY .
--- NOTE | 2020-06-07 12:33 | NUR ---
PT REFUSED IV CATH INSERTION.
--- NOTE | 2020-06-07 12:34 | NUR ---
CALLED FOR TELE AND SUBMITTED MOVE SHEET.
--- NOTE | 2020-06-07 12:35 | NUR ---
DIRECTOR SANITATION BUREAU AT BEDSIDE FOR XRAY.
[2020-06-07] MEDS ORDERED: QUET25TA PO (12:46)
[2020-06-07] MEDS ORDERED: [UNRECOGNIZED DRUG - CODE] TP (12:46)
[2020-06-07] MEDS ORDERED: DIVA500T54 PO (12:46)
[2020-06-07] MEDS ORDERED: ESCI5TAB PO (12:46)
[2020-06-07] MEDS ORDERED: IPRA4AER IH (12:46)
[2020-06-07] MEDS ORDERED: HYDR-3976 PO (12:46)
[2020-06-07] MEDS ORDERED: INSU100V27 SQ (12:46)
[2020-06-07] MEDS ORDERED: OXIC30CR3 TP (12:46)
--- NOTE | 2020-06-07 12:51 | NUR ---
IV LINE ESTABLISHED BLOOD DRAWN AND SENT TO LAB.
[2020-06-07 12:52] LABS: BASOPHILS % (AUTO) 0.4 % (0.0-2.0); EOSINOPHILS % (AUTO) 2.2 % (0.0-6.0); HEMATOCRIT 35 % (39-51); HEMOGLOBIN 11.1 g/dL (13.5-17.5); LYMPHOCYTES # (AUTO) 2.1 /CMM (0.8-4.8); LYMPHOCYTES % (AUTO) 25.1 % (20.0-44.0); MEAN CORPUSCULAR HGB CONC 31 g/dl (31.0-36.0); MEAN CORPUSCULAR VOLUME 97 fL (80-96); MONOCYTES # (AUTO) 0.7 /CMM (0.1-1.30); MONOCYTES % (AUTO) 8.1 % (2.0-12.0); NEUTROPHILS # (AUTO) 5.4 /CMM (1.8-8.9); NEUTROPHILS % (AUTO) 64.2 % (43.0-81.0); PLATELET COUNT (AUTO) 104 /CMM (150-450); RED BLOOD CELL COUNT(AUTO) 3.66 MIL/uL (4.5-6.0); WHITE BLOOD COUNT (AUTO) 8.4 K/uL (4.3-11.0)
[2020-06-07 13:02] LABS: CALCIUM, SERUM 7.9 mg/dL (8.5-10.1); CREATININE 2.8 mg/dL (0.6-1.3); POTASSIUM 3.8 mmol/L (3.5-5.1)
--- NOTE | 2020-06-07 13:12 | NUR ---
COVID SPECIMEN OBTAINED AND SENT TO LAB.
--- NOTE | 2020-06-07 13:24 | NUR ---
TATA FILM EDITOR SUPERVISOR AT BEDSIDE FOR EVAL.
--- NOTE | 2020-06-07 14:02 | NUR ---
room [id number]
--- NOTE | 2020-06-07 14:30 | NUR ---
REPORT GIVEN TO ALEKSANDRA FOX FOR JOE.
[2020-06-07] MEDS ORDERED: Z GUARD REMEDY 2 OZ OINT TP PRN (15:30)
[2020-06-07] MEDS ORDERED: ACETAMINOPHEN 325 MG TABLET PO PRN (15:30)
[2020-06-07] MEDS ORDERED: ONDANSETRON HCL/PF 4 MG/2 ML VIAL IVP PRN (15:30)
[2020-06-07] MEDS ORDERED: DEXTROSE 50%-WATER 50 ML DISP.SYRIN IV PRN (15:30)
[2020-06-07] MEDS ORDERED: ZOLPIDEM TARTRATE 5 MG TABLET PO PRN (15:30)
[2020-06-07 15:53] VITALS: BP 124/50
[2020-06-07] MEDS: BLOOD SUGAR DIAGNOSTIC 1 EACH STRIP IN SCH ×2 (17:48→22:00)
[2020-06-07] MEDS: INSULIN REGULAR, HUMAN 100 UNIT/ML 3 ML VIAL SQ PRN (17:50)
--- NOTE | 2020-06-07 18:47 | NUR ---
RN CLOSING NOTES WILL ENDORSE TO PM NURSE FOR JOE. PATIENT IS IN BED A/O X 3 ESTONIAN ,SPEAKER. . PATIENT IS ON RA SAT 100%. BREATHING IS EVEN AND UNLABORED. NO S/S OF RESPIRATORY DISTRESS. IV ACCESS ON RH # [address] ME[address], BED IS LOCKED AND IN LOWEST POSITION. CALL LIGHT WITHIN EASY REACH.
[2020-06-07 20:00] VITALS: BP 138/58
--- NOTE | 2020-06-07 20:00 | NUR ---
MS OVF RECEIVED PT IN BED A/O 2-3 CYMRAES SPEAKING. NO DISTRESS OR DISCOMFORT NOTED. DENIES PAIN. RT HAND SL #20 G INTACT AND PATENT. KEPT HEELS ELEVATED. DRESSING ON LT HEEL I/C/D. NO S/S OF HYPO OR HYPERGLYCEMIA NOTED. KEPT HIM DRY AND CLEAN. SIDE RAILS UP X 2 AND CALL LIGHT WITHIN REACH. VSS. CONTINUE TO MONITOR HIM.
[2020-06-08 04:00] VITALS: BP 119/81
--- NOTE | 2020-06-08 04:48 | NUR ---
RN NOTE: Rec'd pt from ALEKSANDRA Becerra for JOE.
[2020-06-08 04:50] LABS: BASOPHILS # (AUTO) 0.1 /CMM (0.0-0.2); BASOPHILS % (AUTO) 0.7 % (0.0-2.0); EOSINOPHILS % (AUTO) 2.9 % (0.0-6.0); HEMATOCRIT 40 % (39-51); HEMOGLOBIN 12.3 g/dL (13.5-17.5); LYMPHOCYTES % (AUTO) 23.8 % (20.0-44.0); MEAN CORPUSCULAR HGB CONC 31 g/dl (31.0-36.0); MEAN CORPUSCULAR VOLUME 97 fL (80-96); MONOCYTES # (AUTO) 0.7 /CMM (0.1-1.30); MONOCYTES % (AUTO) 8.6 % (2.0-12.0); NEUTROPHILS # (AUTO) 5.4 /CMM (1.8-8.9); PLATELET COUNT (AUTO) 57 /CMM (150-450); RED BLOOD CELL COUNT(AUTO) 4.09 MIL/uL (4.5-6.0); WHITE BLOOD COUNT (AUTO) 8.4 K/uL (4.3-11.0)
[2020-06-08 04:59] LABS: CALCIUM, SERUM 8.2 mg/dL (8.5-10.1); CREATININE 3.1 mg/dL (0.6-1.3); MAGNESIUM 2.2 mg/dL (1.8-2.4); PHOSPHORUS 4.6 mg/dL (2.5-4.9); POTASSIUM 3.8 mmol/L (3.5-5.1)
[2020-06-08 06:10] LABS: EOSINOPHILS % (MANUAL) 1 % (0-4); LYMPHOCYTES % (MANUAL) 24 % (16-48); MONOCYTES % (MANUAL) 5 % (0-11.0); NEUTROPHILS % (MANUAL) 63 (42-76)
[2020-06-08 06:11] LABS: BAND % (MANUAL) 7 % (0.0-5.0)
--- NOTE | 2020-06-08 06:45 | NUR ---
RN NOTE: Obtained consent from pt's brother Gonzalo for pt's permacath placement today. Kristy Izaguirre RN witnessed. Consents placed in chart. Will endorse to AM nurse
--- NOTE | 2020-06-08 06:58 | NUR ---
RN CLOSING NOTES PT IS CURRENTLY RESTING IN BED. VSS. NO SOB OR RESPIRATORY DISTRESS NOTED. SAFETY MEASURES IN PLACE. BED IS LOCKED IN LOWEST POSITION WITH ALARM ON. IV SITES INTACT KEPT CLEAN DRY, FLUSHING WELL. WILL ENDORSE ONCOMING NURSE FOR JOE.
[2020-06-08] MEDS: BLOOD SUGAR DIAGNOSTIC 1 EACH STRIP IN SCH ×4 (07:52→22:05)
--- NOTE | 2020-06-08 07:54 | NUR ---
RN MS NOTES PT IN BED, ASLEEP, EASY TO AROUSE, ALERT AND VERBALLY RESPONSIVE, DENIES PAIN, RESPIRATIONS NORMAL, CALL LIGHT WITHIN REACH, PT FOR HD CATH INSERTION TODAY, PT AWARE, KEPT COMFORTABLE.
[2020-06-08 08:00] VITALS: BP 127/57
--- NOTE | 2020-06-08 09:22 | NUR ---
WOUND CARE CONSULT: REVIEWED CHART, NURSING DOCUMENTATION AND PHOTOS WHICH INDICATE FOOT WOUNDS, PRESENT ON ADMISSION. RECOMMEND DPM CONSULT. DR HERNANDEZ NOTIFIED OF CONSULT REQUEST. RECOMMENDATIONS MADE FOR SKIN PROTECTION. DISCUSSED WITH NURSING STAFF. WILL SEE PRN. HEIN IN AGREEMENT WITH PLAN OF CARE. CURRENT FLORIN SCORE IS 15. Addendum: 06/08/20 at 0933 by PETRONA SKY WNDNU SACRAL SCARRING NOTED IN ADMISSION PHOTO.
--- NOTE | 2020-06-08 11:23 | NUR ---
RN MS NOTES PT IN BED, NO COMPLAINT AT THIS TIME, BREATHING PATTERN NORMAL, SEEN AND EXAMINED BY DR. PAYTON, NEEDS ATTENDED.
[2020-06-08] MEDS: ESCITALOPRAM OXALATE (10 MG) 10 MG TABLET PO SCH (14:00)
[2020-06-08] MEDS: VIT B CMPLX 3/FA/VIT C/BIOTIN 1 TAB TABLET PO SCH (14:00)
[2020-06-08] MEDS: ARIPIPRAZOLE 5 MG TABLET PO SCH (14:00)
[2020-06-08] MEDS ORDERED: HEPARIN SODIUM, PORCINE 1,000 UNIT/ML VIAL ONE (15:51)
--- NOTE | 2020-06-08 16:00 | NUR ---
RN MS NOTES PT PICKED UP BY O.R. STAFF FOR SURGERY VIA BED, IN STABLE CONDITION.
--- NOTE | 2020-06-08 16:31 | NUR ---
REPORT GIVEN TO SUNNI,OR NOTIFIED PATIENT COVID NEGATIVE AND GAVE ROOM 232-1 POST SURGERY.PRIMARY RN ELIZABETH MADE AWARE TO TRANSFER BELONGINGS.
[2020-06-08] MEDS ORDERED: CELLULOSE,OXIDIZED 1 PKT EACH MC ONE (16:57)
[2020-06-08] MEDS: CARVEDILOL 6.25 MG TABLET PO SCH (17:00)
[2020-06-08] MEDS: SENNOSIDES 8.6 MG TABLET PO SCH (17:00)
[2020-06-08] MEDS: QUETIAPINE FUMARATE 25 MG TABLET PO SCH (17:00)
[2020-06-08 18:15] VITALS: BP 136/78
--- NOTE | 2020-06-08 18:15 | NUR ---
MS/cushion former Patient received from operating room, s/p HD catheter insertion to left IJ. Vital signs recorded as per hospital protocol. Denies any pain or discomfort. 5LB sand bag removed from insertion site, no further oozing noted. Pressure dressing remains in place. Call light within reach, dinner tray ordered. Will endorse to industry consultant.
[2020-06-08 18:30] VITALS: BP 136/78
[2020-06-08 18:45] VITALS: BP 138/72
[2020-06-08 20:00] VITALS: BP 147/79
--- NOTE | 2020-06-08 21:08 | NUR ---
MS/TELE/RN DURING INITIAL INITIAL ROUNDING AT 1930, PATIENT WAS AWAKE, ALERT, ORIENTED,S/P PERMA CATH PLACEMENT, DRESSING WAS INTACT, CLEAN AND DRY, NO SIGNS OF ACUTE BLEEDING NOTED, HD IN PROGRESS, WILL MONITOR.
--- NOTE | 2020-06-08 21:40 | NUR ---
MS RN NOTES RECEIVED PATIENT ON BED A/O X4,SPEAK SOUTH AFRICAN BUT ABLE TO UNDERSTAND YAKUT,BREATHING REGULAR,NOT IN ANY FORM OF DISTRESS.S/P INTRA JUGULAR PERMA CATH PLACEMENT TODAY BY DR DSOUZA.PRESSURE DRESSING IN PLACE.WILL MONITOR FOR BLEEDING.
--- NOTE | 2020-06-08 21:42 | NUR ---
MS/TELE/RN HD FINISHED WITH 1.2 L OUTPUT.
--- NOTE | 2020-06-08 21:50 | NUR ---
MS/TELE/RN ENDORSED TO ALEKSANDRA LAWSON, FOR CONTINUITY OF CARE.
[2020-06-08] MEDS ORDERED: ATORVASTATIN 40 MG TABLET PO SCH (22:00)
--- NOTE | 2020-06-08 22:00 | NUR ---
MS RN NOTES ACCU-CHECK BLOOD SUGAR CHECK 155,COVERED WITH HUMULIN R 2 UNITS PER SLIDING SCALE.SNACKS PROVIDED AT BEDSIDE.
[2020-06-08] MEDS: INSULIN REGULAR, HUMAN 100 UNIT/ML 3 ML VIAL SQ PRN (22:11)
[2020-06-08] MEDS: HYDROCODONE/APAP 5/325MG TABLET PO PRN (22:30)
--- NOTE | 2020-06-09 03:00 | NUR ---
MS RN NOTES SLEEPING,KEPT WARM AND COMFORTABLE
[2020-06-09] MEDS: BLOOD SUGAR DIAGNOSTIC 1 EACH STRIP IN SCH ×3 (05:25→17:33)
--- NOTE | 2020-06-09 05:30 | NUR ---
MS RN NOTES ACCU-CHECK BLOOD SUGAR CHECK 140,HUMULIN R 2 UNITS ADMINISTERED SQ ON RIGHT DELTOID.
[2020-06-09] MEDS: INSULIN REGULAR, HUMAN 100 UNIT/ML 3 ML VIAL SQ PRN ×2 (05:38→12:17)
--- NOTE | 2020-06-09 06:47 | NUR ---
MS RN NOTES ON BED CALM AND QUIET,HEADACHE IMPROVED.SLEPT WELL WITH NORCO,IN NO ACUTE DISTRESS.WILL ENDORSE TO DAY NURSE FOR JOE.
[2020-06-09] MEDS ORDERED: PANTOPRAZOLE 40 MG TABLET.DR PO SCH (07:30)
[2020-06-09 07:54] VITALS: BP 102/50
[2020-06-09 08:00] VITALS: BP 102/50
--- NOTE | 2020-06-09 08:00 | NUR ---
MS RN AM NOTES RECEIVED PT IN BED A/O 2-3 ARABIC SPEAKING. NO DISTRESS OR DISCOMFORT NOTED. DENIES PAIN. RT HAND SL #20 G INTACT AND PATENT. KEPT HEELS ELEVATED. DRESSING ON LT HEEL I/C/D. NO S/S OF HYPO OR HYPERGLYCEMIA NOTED. KEPT HIM DRY AND CLEAN. SIDE RAILS UP X 2 AND CALL LIGHT WITHIN REACH. VSS. CONTINUE TO MONITOR HIM.
[2020-06-09] MEDS: ARIPIPRAZOLE 5 MG TABLET PO SCH (08:31)
[2020-06-09] MEDS: VIT B CMPLX 3/FA/VIT C/BIOTIN 1 TAB TABLET PO SCH (08:31)
[2020-06-09] MEDS: SENNOSIDES 8.6 MG TABLET PO SCH ×2 (08:31→18:18)
[2020-06-09] MEDS: ESCITALOPRAM OXALATE (10 MG) 10 MG TABLET PO SCH (08:31)
[2020-06-09] MEDS: QUETIAPINE FUMARATE 25 MG TABLET PO SCH ×2 (08:31→18:19)
[2020-06-09] MEDS: CARVEDILOL 6.25 MG TABLET PO SCH ×2 (08:32→18:19)
[2020-06-09] MEDS ORDERED: ASCORBIC ACID 500 MG TABLET PO SCH (09:00)
[2020-06-09] MEDS ORDERED: ASPIRIN 81 MG TAB.CHEW PO SCH (09:00)
[2020-06-09] MEDS: HYDROCODONE/APAP 5/325MG TABLET PO PRN (12:18)
[2020-06-09] MEDS ORDERED: DIVALPROEX SODIUM 500 MG TABLET.DR PO SCH (14:03)
[2020-06-09 16:00] VITALS: BP 102/50
--- NOTE | 2020-06-09 16:00 | NUR ---
CALLED IN REPORT TO ALEKSANDRA PETERS OF [facility] AND GAVE DISCHARGE INSTRUCTIONS.HEMODIALYSIS PROCEDURE GOING ON AT THIS TIME. AMBULANCE WILDLIFE MANAGER WAS CHANGED AT A LATER TIME DUE TO DIALYSIS PROCEDURE.
--- NOTE | 2020-06-09 16:59 | NUR ---
PT IS POSITIVE OF MRSA NARES.NOTIFIED AMI CHAMPAGNE WITH ORDERS FOR BACTROBAN OINTMENT Q 12 HRS FOR 5 DAYS
[2020-06-09] MEDS ORDERED: MUPIROCIN OINT 2% 22 GM TUBE NS SCH (18:00)
[2020-06-09 18:19] VITALS: BP 157/68
--- NOTE | 2020-06-09 18:19 | NUR ---
HEMODIALYSIS COMPLETED WITH NO OUTPUT. BP 157/68 HR 77 RR 16 T 97 O2 SAT 100% ROOM AIR.
--- NOTE | 2020-06-09 19:00 | NUR ---
PT READY FOR CONSTRUCTION MGR.PT RESTING IN BED DENYING ANY PAIN OR DISTRESS AT THIS TIME.CALL LIGHT PLACED WITHIN REACH.ENDORSED TO NIGHT NURSE CARE.
--- NOTE | 2020-06-09 19:45 | NUR ---
MS RN NOTES RECEIVED PATIENT AWAKE ALERT ORIENTED X4, UZBEK SPEAKING, UNDERSTANDS SOME AZERBAIJANI, ABLE TO MAKE NEEDS KNOWN, NO SIGNS OF ACUTE RESPIRATORY DISTRESS NOTED, LEFT IJ PERMACATH INTACT AND INPLACED, PERIPHERAL IV ACCESS ON HIS RIGHT HAND G#20 INTACT AND PATENT, SAFETY MEASURES INPLACE, CALL LIGHT WITHIN EASY REACH, BED IN LOW LOCKED POSITION, ASPIRATION PRECAUTION EMPHASIZED, AWAITING FOR MEDICAL AFFAIRS LEADER BY [facility] TO BE DISCHARGE TO [facility] TO ROOM 332, REPORT GIVEN BY AM NURSE ALMA Naidu RN TO ALEKSANDRA PETERS. ALL NEEDS ANTICIPATED, WILL CONTINUE TO MONITOR ACCORDINGLY.
--- NOTE | 2020-06-09 19:55 | NUR ---
MS RN NOTES CALLED AND VERIFIED DRY KILN FEEDER TIME, [facility] WILL DRY KILN FEEDER PATIENT AT 1999. WILL CONTINUE TO MONITOR PATIENT.
--- NOTE | 2020-06-09 20:45 | NUR ---
MS RN NOTES PICKED UP BY [facility] .PATIENT LEFT THE UNIT AT 2044 IN STABLE CONDITION. CHARGE NURSE AND NURSE ONLINE ADVERTISING ANALYST AWARE OF DISCHARGE.
[2020-06-10] MEDS ORDERED: THERAHONEY GEL 1.5 OZ TUBE TP SCH (09:00)
== END 2020-06-09 20:45 | DRG 314 ==
LOC: ER 12:26 → SAOV 15:20 → ICU 15:52 → MEDSG1 06-08 04:26 → TELE 06-08 18:53 → MED 06-08 21:06
PROVIDERS: ADMIT Nurse Practitioner Acute Care; ATTEND Nurse Practitioner Acute Care
PROC: 0JHF3XZ Insertion of Tunneled Vascular Access Device into Left Upper Arm Subcutaneous Tissue and Fascia, Percutaneous Approach (ICD-10-PCS; principal; 2020-06-08)
PROC: 05HN33Z Insertion of Infusion Device into Left Internal Jugular Vein, Percutaneous Approach (ICD-10-PCS; 2020-06-08)
PROC: B514YZA Fluoroscopy of Left Jugular Veins using Other Contrast, Guidance (ICD-10-PCS; 2020-06-08)
PROC: 5A1D70Z Performance of Urinary Filtration, Intermittent, Less than 6 Hours Per Day (ICD-10-PCS; 2020-06-08)
PROC: 5A1D70Z Performance of Urinary Filtration, Intermittent, Less than 6 Hours Per Day (ICD-10-PCS; 2020-06-09)
DX: T82.49XA Other complication of vascular dialysis catheter, initial encounter (principal); I50.23 Acute on chronic systolic (congestive) heart failure; N18.6 End stage renal disease; I13.2 Hypertensive heart and chronic kidney disease with heart failure and with stage 5 chronic kidney disease, or end stage renal disease; I69.354 Hemiplegia and hemiparesis following cerebral infarction affecting left non-dominant side; E87.1 Hypo-osmolality and hyponatremia; D68.59 Other primary thrombophilia; L97.429 Non-pressure chronic ulcer of left heel and midfoot with unspecified severity; L97.419 Non-pressure chronic ulcer of right heel and midfoot with unspecified severity; E44.1 Mild protein-calorie malnutrition; Z99.2 Dependence on renal dialysis; E11.22 Type 2 diabetes mellitus with diabetic chronic kidney disease; I25.10 Atherosclerotic heart disease of native coronary artery without angina pectoris; E78.5 Hyperlipidemia, unspecified; E87.70 Fluid overload, unspecified; G40.909 Epilepsy, unspecified, not intractable, without status epilepticus; R26.9 Unspecified abnormalities of gait and mobility; F20.9 Schizophrenia, unspecified; Z95.1 Presence of aortocoronary bypass graft; E11.40 Type 2 diabetes mellitus with diabetic neuropathy, unspecified; E11.51 Type 2 diabetes mellitus with diabetic peripheral angiopathy without gangrene; E11.621 Type 2 diabetes mellitus with foot ulcer; F39 Unspecified mood [affective] disorder; Z68.20 Body mass index [BMI] 20.0-20.9, adult
CPT/HCPCS: 36415; 71045-TC; 80048-TC; 80061-TC; 82962-TC; 83735-TC; 84100-TC; 85025-TC; 85610-TC; 87081-TC; 90935-TC; C1750; C1769; G0378; J0690; J1644; J1815; U0003-CS

== ENCOUNTER 2020-06-13 23:55 | Emergency (ER) | payer MEDICARE, OTHER ==
[~2020-06-13] VITALS: Ht 167.6 cm; Wt 83.0 kg
[~2020-06-13 23:55] MED LIST changes: -ALBU2.5V38 IH; -CEFE1FRO IV; -DEXT50DI8 IV; -DIVA500T2 PO; +DIVA500T54 PO; +ESCI5TAB PO; -GLUC1KIT IM; -INSU100V11 SQ; +INSU100V27 SQ; -IPRA0.2S9 IH; +IPRA4AER IH; -LORA10TA7 PO; +OXIC30CR3 TP; +QUET25TA PO; -TRIA15OI2 TP; +[UNRECOGNIZED DRUG - CODE] TP
--- NOTE | 2020-06-14 00:01 | NUR ---
PT AAOX4. BIB EMS C/O DIALYSIS CATH SITE BLEEDING. PT PLACED IN BED 2 ON MONITOR AND PULSE OX. NO ACUTE DISTRESS NOTED. UPON ASSESSMENT CATH SITE HAS MINIMAL BLEEDING WHICH IS CLOTTED ALREADY.
[2020-06-14] MEDS ORDERED: GELATIN SPONGE,ABSORBABLE 1 SPONGE SPONGE TP ONE ×2 (00:15→01:00)
--- NOTE | 2020-06-14 00:18 | NUR ---
WOUND CARE DONE ON CATH SITE. VSS. GELFOAM PLACED AND WOUND CLEANED.
--- NOTE | 2020-06-14 00:32 | NUR ---
CALLED TRANSPORT ([facility]) ETA 0700.
--- NOTE | 2020-06-14 00:40 | NUR ---
[id number] CALLED FOR TRANSPORT RESERVATION #[phone]/ WILL CALL BACK AT 0100AM FOR FE HOLLEY.
--- NOTE | 2020-06-14 01:21 | NUR ---
[facility] ETA 0145.
--- NOTE | 2020-06-14 01:46 | NUR ---
Patient discharged back to facility in stable condition. Written and verbal after care instructions given. Patient verbalizes understanding of instruction. Pt transfered back to facility.
[2020-06-14 01:49] VITALS: BP 129/74
== END 2020-06-14 01:57 | disposition home or self-care (01) ==
LOC: ER 23:58
DX: T82.49XA Other complication of vascular dialysis catheter, initial encounter (principal); I12.9 Hypertensive chronic kidney disease with stage 1 through stage 4 chronic kidney disease, or unspecified chronic kidney disease; E11.22 Type 2 diabetes mellitus with diabetic chronic kidney disease; N18.9 Chronic kidney disease, unspecified; I10 Essential (primary) hypertension; R53.1 Weakness; I25.10 Atherosclerotic heart disease of native coronary artery without angina pectoris; K21.9 Gastro-esophageal reflux disease without esophagitis; Z99.2 Dependence on renal dialysis; Z86.73 Personal history of transient ischemic attack (TIA), and cerebral infarction without residual deficits; Z98.890 Other specified postprocedural states; Z79.4 Long term (current) use of insulin; Z79.82 Long term (current) use of aspirin; Z79.899 Other long term (current) drug therapy

== ENCOUNTER 2020-09-10 21:56 | Inpatient (IN) | payer MEDICARE, OTHER ==
[~2020-09-10] VITALS: Ht 167.6 cm; Wt 57.0 kg
--- NOTE | 2020-09-10 21:58 | NUR ---
PT AAOX4. RIKKI FROM [facility] FOR BLEEDING SHUNT SINCE 6PM. PT PLACED IN BED 10 ON MONITOR AND PULSE OX. VSS. NO ACUTE DISTRESS NOTED. MD AT BEDSIDE FOR EVAL. AWAITING ORDERS. PER CHRIS. PT HAD HIS DIALYSIS DONE TODAY. WILL CONTINUE TO MONITOR.
--- NOTE | 2020-09-10 22:10 | NUR ---
AT BEDSIDE FOR WOUND CARE.
[2020-09-10] MEDS ORDERED: GELATIN SPONGE,ABSORBABLE 1 SPONGE SPONGE TP ONE ×3 (22:12→23:00)
--- NOTE | 2020-09-10 22:13 | NUR ---
EMT AT BEDSIDE FOR WOUND CARE.
--- NOTE | 2020-09-10 23:23 | NUR ---
ADMISSION PACKET GIVEN TO ADMITTING
--- NOTE | 2020-09-10 23:34 | NUR ---
SHAKIRAID SWABBED, SENT TO LAB.
[2020-09-10 23:48] LABS: BASOPHILS % (AUTO) 0.3 % (0.0-2.0); EOSINOPHILS % (AUTO) 2.6 % (0.0-6.0); HEMATOCRIT 34 % (39-51); HEMOGLOBIN 11.3 g/dL (13.5-17.5); LYMPHOCYTES % (AUTO) 21.5 % (20.0-44.0); MEAN CORPUSCULAR HGB CONC 33 g/dl (31.0-36.0); MEAN CORPUSCULAR VOLUME 99 fL (80-96); MONOCYTES # (AUTO) 0.8 /CMM (0.1-1.30); NEUTROPHILS # (AUTO) 6.2 /CMM (1.8-8.9); NEUTROPHILS % (AUTO) 66.6 % (43.0-81.0); RED BLOOD CELL COUNT(AUTO) 3.46 MIL/uL (4.5-6.0); WHITE BLOOD COUNT (AUTO) 9.3 K/uL (4.3-11.0)
[2020-09-10 23:54] LABS: PLATELET COUNT (AUTO) 49 /CMM (150-450)
[2020-09-10 23:58] LABS: CALCIUM, SERUM 8.5 mg/dL (8.5-10.1); CREATININE 2.2 mg/dL (0.6-1.3)
[2020-09-11] MEDS ORDERED: POLYETHYLENE GLYCOL 3350 17 GM POWD.PACK PO PRN
[2020-09-11] MEDS ORDERED: CLONIDINE HCL 0.1 MG TABLET PO PRN
[2020-09-11] MEDS ORDERED: diphenhydrAMINE HCL 25 MG CAPSULE PO PRN
[2020-09-11] MEDS ORDERED: BISACODYL SUPP (10 MG) 10 MG/SUPP.RECT SUPP.RECT RC PRN
[2020-09-11 00:01] LABS: POTASSIUM 2.8 mmol/L (3.5-5.1)
[2020-09-11] MEDS ORDERED: POTASSIUM CHLORIDE 20 MEQ TAB.PRT.SR PO ONE ×2 (00:05→00:30)
--- NOTE | 2020-09-11 00:15 | NUR ---
NEGATIVE COVID PER LAB
--- NOTE | 2020-09-11 00:19 | NUR ---
CALLED RN SUP FOR TELE BED
--- NOTE | 2020-09-11 00:27 | NUR ---
PT ASSIGNED TO [facility] [id number]
[2020-09-11] MEDS ORDERED: MAG HYDROX/AL HYDROX/SIMETH 30 ML UDC PO PRN (00:30)
[2020-09-11] MEDS ORDERED: MAGNESIUM HYDROXIDE 30 ML UDC PO PRN (00:30)
[2020-09-11] MEDS ORDERED: DEXTROSE 50%-WATER 50 ML DISP.SYRIN IV PRN (00:30)
[2020-09-11] MEDS ORDERED: ONDANSETRON HCL/PF 4 MG/2 ML VIAL IVP PRN (00:30)
[2020-09-11] MEDS ORDERED: ACETAMINOPHEN 325 MG TABLET PO PRN (00:30)
[2020-09-11 00:39] LABS: LYMPHOCYTES % (MANUAL) 16 % (16-48); NEUTROPHILS % (MANUAL) 72 (42-76)
[2020-09-11 00:40] LABS: EOSINOPHILS % (MANUAL) 2 % (0-4); MONOCYTES % (MANUAL) 10 % (0-11.0)
--- NOTE | 2020-09-11 00:50 | NUR ---
Junior nunez in [facility] - 09/11/20 at 0053 by JERRI REPORT GIVEN TO MELISSA VILLELA JOE
--- NOTE | 2020-09-11 00:50 | NUR ---
REPORT GIVEN TO MADELAINE LAKE FOR JOE
--- NOTE | 2020-09-11 00:51 | NUR ---
PT TRANSFERED PER ACLS PROTOCOL. VSS.
[2020-09-11 02:00] VITALS: BP 121/59
[2020-09-11 02:41] VITALS: BP 121/50
[2020-09-11] MEDS: BLOOD SUGAR DIAGNOSTIC 1 EACH STRIP VI SCH ×4 (06:24→21:15)
[2020-09-11] MEDS: *INSULIN REGULAR(HUMULIN R)HUM 100 UNIT/ML VIAL SQ PRN ×2 (06:29→12:02)
--- NOTE | 2020-09-11 07:08 | NUR ---
FROM ER FROM [facility] BEEDING FROM LEFT CHESTWALL HD CATHETER PRESSURE DRESSING APPLIED USING MICRO TAPE NOTED LEFT ARM SWOLLEN LEFT HEMIPLEGIC HE IS ALLERT AND ORIENTATED BLEEDING HAS NOT COME THRU THE PRESSURE DRESSING
--- NOTE | 2020-09-11 07:50 | NUR ---
RN MS OPENING NOTES RECEIVED PATIENT RESTING IN BED, AWAKE, A/OX3. PT ON RA WITH NO S/S OF SOB, BREATHING EVEN AND UNLABORED AND IN NO ACUTE RESPIRATORY DISTRESS. IV TO RT AC #20G PATENT AND INTACT, FLUSHING WELL KEPT S/L. PT ON BEDREST. PRESSURE DRESSING TO LT UPPER SHOULDER D/T HD CATH BLEEDING S/P HD. BED IS AT LOWEST AND LOCKED POSITION WITH SIDE RAILS UPX2 AND CALL LIGHT WITH IN REACH, WILL CONTINUE TO MONITOR PATIENT THROUGH SHIFT.
[2020-09-11 08:00] VITALS: BP 126/83
[2020-09-11] MEDS: PANTOPRAZOLE 40 MG TABLET.DR PO SCH (08:38)
[2020-09-11] MEDS: DIVALPROEX SODIUM 250 MG TABLET.DR PO SCH ×2 (08:38→16:48)
[2020-09-11] MEDS: ARIPIPRAZOLE 5 MG TABLET PO SCH (08:38)
[2020-09-11] MEDS: VIT B CMPLX 3/FA/VIT C/BIOTIN 1 TAB TABLET PO SCH (08:38)
[2020-09-11] MEDS: ESCITALOPRAM OXALATE (10 MG) 10 MG TABLET PO SCH (08:38)
[2020-09-11] MEDS: CARVEDILOL 6.25 MG TABLET PO SCH ×2 (08:39→21:14)
[2020-09-11] MEDS: ASCORBIC ACID 500 MG TABLET PO SCH (08:39)
[2020-09-11] MEDS: SENNOSIDES 8.6 MG TABLET PO SCH ×2 (08:39→16:48)
[2020-09-11] MEDS: QUETIAPINE FUMARATE 25 MG TABLET PO SCH ×2 (08:39→21:14)
[2020-09-11 16:00] VITALS: BP 105/64
--- NOTE | 2020-09-11 18:25 | NUR ---
RN MS CLOSING NOTES PATIENT RESTING IN BED, AWAKE, A/OX3. PT ON RA WITH NO S/S OR C/O SOB, BREATHING EVEN AND UNLABORED. IV TO RT AC #20G PATENT AND INTACT, FLUSHING WELL KEPT S/L. PRESSURE DRESSING TO LT UPPER SHOULDER IN PLACE S/P HD;CATH CONTINUED BLEEDING AFFTER HD. HD PENDING TO BE DONE TONIGHT @8PM. PT AWAITING NEPHRO AND VASCULAR CONSULT. BED IS AT LOWEST AND LOCKED POSITION WITH SIDE RAILS UPX2 AND CALL LIGHT WITH IN REACH, WILL ENDORSE TO ONCOMING SHIFT.
[2020-09-11 20:00] VITALS: BP 129/70
--- NOTE | 2020-09-11 20:24 | NUR ---
MS RN OPENING NOTE Patient awake in bed, A/Ox3, calm and cooperative. HOB elevated 30 degrees. Breathing even, clear, unlabored on room air. No signs of acute distress or SOB. Brachial/ pedal pulses 2+, symmetrical. Skin warm, pink, dry, appropriate for ethnicity. Non-pitting edema, redness on left arm, contracted. IV site right AC 20g saline locked, patent and intact. No signs of redness or infiltration. Abdomen round, soft, non-tender. BS active. Patient is incontinent. Patient on renal diet, appetite good. Bed in low position, wheels locked, side rails up x2, call light within reach.
[2020-09-11] MEDS: INSULIN GLARGINE, 100 UNIT/ML CARTRIDGE SQ SCH (21:09)
--- NOTE | 2020-09-11 21:10 | NUR ---
MS/RN NOTE Held lantus d/t blood glucose of 78. Previous blood glucose was 251.
[2020-09-11] MEDS: ATORVASTATIN 40 MG TABLET PO SCH (21:15)
[2020-09-12] MEDS: *INSULIN REGULAR(HUMULIN R)HUM 100 UNIT/ML VIAL SQ PRN ×2 (06:34→21:26)
[2020-09-12] MEDS: BLOOD SUGAR DIAGNOSTIC 1 EACH STRIP VI SCH ×4 (06:36→21:46)
[2020-09-12] MEDS: PANTOPRAZOLE 40 MG TABLET.DR PO SCH (07:04)
--- NOTE | 2020-09-12 07:29 | NUR ---
MS RN CLOSING NOTE Patient awake in bed, A/Ox3, calm and cooperative. HOB elevated 30 degrees. Breathing even, clear, unlabored on room air. No signs of acute distress or SOB. Skin warm, pink, dry, appropriate for ethnicity. Non-pitting edema, redness on left arm, contracted. IV site right AC 20g saline locked, patent and intact. No signs of redness or infiltration. Patient is incontinent. Bed in low position, wheels locked, side rails up x2, call light within reach.
--- NOTE | 2020-09-12 07:45 | NUR ---
RN OPENING NOTE RECEIVED PT LYING IN BED. NO ACUTE DISTRESS NOTED. VSS, AFEBRILE NO SOB NOTED. A+OX3, ABLE TO MAKE NEEDS KNOWN. SLEEPING INTERMITTENTLY. COMPLIANT WITHMEDICATIONSAND BLAN OF CARE. DIALYSIS CATHETER WITH PRESSURE DRESSING. ASSISTED WITH REPOSITIONING FOR SKIN INTEDRITY AND COMFORT. SIDE RAILS UP IN LOW AND LOCKED POSTION YASMINE ALAN
[2020-09-12 08:00] VITALS: BP 134/52
[2020-09-12] MEDS: CARVEDILOL 6.25 MG TABLET PO SCH ×2 (09:00→21:27)
[2020-09-12] MEDS: VIT B CMPLX 3/FA/VIT C/BIOTIN 1 TAB TABLET PO SCH (09:40)
[2020-09-12] MEDS: ARIPIPRAZOLE 5 MG TABLET PO SCH (09:40)
[2020-09-12] MEDS: DIVALPROEX SODIUM 250 MG TABLET.DR PO SCH ×2 (09:40→16:20)
[2020-09-12] MEDS: ESCITALOPRAM OXALATE (10 MG) 10 MG TABLET PO SCH (09:41)
[2020-09-12] MEDS: ASCORBIC ACID 500 MG TABLET PO SCH (09:42)
[2020-09-12] MEDS: QUETIAPINE FUMARATE 25 MG TABLET PO SCH ×2 (09:42→21:26)
[2020-09-12] MEDS: SENNOSIDES 8.6 MG TABLET PO SCH ×2 (09:42→16:20)
[2020-09-12] MEDS: INSULIN REGULAR, HUMAN 100 UNIT/ML 3 ML VIAL SQ PRN (12:07)
[2020-09-12 16:00] VITALS: BP 88/62
--- NOTE | 2020-09-12 20:00 | NUR ---
MS RN OPENING NOTES RECEIVED PATIENT IN BED, AWAKE, HAS NOTED EPISODES OF CONFUSION. IVF ON RIGHT WRIST ON GOING. NO COMPLAINS OF PAIN NO FACIAL GRIMACE NOTED. SAFETY AND FALL PRECAUTIONS OBSERVED. WILL TURN PATIENT Q2H AND NEEDED. KEPT WARM AND DRY. WILL CONTINUE TO MONITOR.
[2020-09-12] MEDS: ATORVASTATIN 40 MG TABLET PO SCH (21:27)
[2020-09-12] MEDS: INSULIN GLARGINE, 100 UNIT/ML CARTRIDGE SQ SCH (21:45)
--- NOTE | 2020-09-13 06:19 | NUR ---
MS RN CLOSING NOTES: PATIENT IN HIS ROOM, ASLEEP, ALERT AND ORIENTED X3, NO COMPLAINS OF PAIN OR DISCOMFORT THIS TIME. ADMINISTERED ORDERED MEDICATIONS. SAFETY AND FALL PRECAUTIONS OBSERVED. BED ALARM ON. BLOOD GLUCOSE LEVELS CHECKED. WILL ENDORSE PATIENT TO DAY SHIFT NURSE FOR CONTINUITY OF CARE.
[2020-09-13] MEDS: PANTOPRAZOLE 40 MG TABLET.DR PO SCH (06:43)
[2020-09-13] MEDS: BLOOD SUGAR DIAGNOSTIC 1 EACH STRIP VI SCH ×4 (07:02→21:18)
[2020-09-13 08:00] VITALS: BP 128/77
[2020-09-13] MEDS: SENNOSIDES 8.6 MG TABLET PO SCH ×2 (09:35→17:00)
[2020-09-13] MEDS: ARIPIPRAZOLE 5 MG TABLET PO SCH (09:35)
[2020-09-13] MEDS: QUETIAPINE FUMARATE 25 MG TABLET PO SCH ×2 (09:35→21:18)
[2020-09-13] MEDS: CARVEDILOL 6.25 MG TABLET PO SCH ×2 (09:36→21:18)
[2020-09-13] MEDS: ESCITALOPRAM OXALATE (10 MG) 10 MG TABLET PO SCH (09:36)
[2020-09-13] MEDS: DIVALPROEX SODIUM 250 MG TABLET.DR PO SCH ×2 (09:36→17:33)
[2020-09-13] MEDS: ASCORBIC ACID 500 MG TABLET PO SCH (09:36)
[2020-09-13] MEDS: VIT B CMPLX 3/FA/VIT C/BIOTIN 1 TAB TABLET PO SCH (09:39)
[2020-09-13 11:26] LABS: CALCIUM, SERUM 8.4 mg/dL (8.5-10.1); CREATININE 3.5 mg/dL (0.6-1.3); POTASSIUM 3.6 mmol/L (3.5-5.1)
[2020-09-13 11:27] LABS: BASOPHILS % (AUTO) 0.5 % (0.0-2.0); EOSINOPHILS % (AUTO) 3.3 % (0.0-6.0); HEMATOCRIT 31 % (39-51); HEMOGLOBIN 10.3 g/dL (13.5-17.5); LYMPHOCYTES # (AUTO) 1.4 /CMM (0.8-4.8); LYMPHOCYTES % (AUTO) 20.3 % (20.0-44.0); MEAN CORPUSCULAR HGB CONC 33 g/dl (31.0-36.0); MEAN CORPUSCULAR VOLUME 101 fL (80-96); MONOCYTES # (AUTO) 0.6 /CMM (0.1-1.30); MONOCYTES % (AUTO) 9.2 % (2.0-12.0); NEUTROPHILS # (AUTO) 4.6 /CMM (1.8-8.9); NEUTROPHILS % (AUTO) 66.7 % (43.0-81.0); PLATELET COUNT (AUTO) 74 /CMM (150-450); WHITE BLOOD COUNT (AUTO) 6.8 K/uL (4.3-11.0)
[2020-09-13 12:13] LABS: ALBUMIN 2.9 g/dL (3.4-5.0); BILIRUBIN,TOTAL 0.4 mg/dL (0.2-1.0); CALCIUM, SERUM 8.3 mg/dL (8.5-10.1); CREATININE 3.5 mg/dL (0.6-1.3); MAGNESIUM 2.1 mg/dL (1.8-2.4); POTASSIUM 3.6 mmol/L (3.5-5.1)
[2020-09-13] MEDS: INSULIN REGULAR, HUMAN 100 UNIT/ML 3 ML VIAL SQ PRN ×2 (12:14→17:26)
[2020-09-13 16:00] VITALS: BP 142/72
--- NOTE | 2020-09-13 18:22 | NUR ---
RN NOTES PATIENT STARTED HD TOLERATING IT WELL. WILL CONTINUE TO MONITOR.
--- NOTE | 2020-09-13 18:44 | NUR ---
MS RN NOTES PATIENT IN BED RESTING NO SOB OR ACUTE DISTRESS NOTED. NO ACUTE CHANGES NOTED DURING AM SHIFT. ALL DUE MEDICATIONS ADMINISTERED. ALL NEEDS MET. SAFETY MEASURES IN PLACE. WILL ENDORSE CARE TO PM SHIFT.
--- NOTE | 2020-09-13 19:35 | NUR ---
MS RN NOTE: PATIENT RESTING IN BED, NO ACUTE DISTRESS NOTED. BREATHING EVEN AND UNLABORED, NO SOB NOTED. MIDLINE TO RAC IN PLACE. RECEIVED HD AT THIS TIME. NO S/S OF HYPER/HYPOGLYCEMIA NOTED. BED LOCKED AND IN LOWEST POSITION, CALL LIGHT IN REACH. WILL CONTINUE TO MONITOR. Addendum: 09/14/20 at 2022 by USMAN GUADALUPE RN CLARIFICATION OF IV TO RAC IN PLACE, NOT MIDLINE
[2020-09-13 20:00] VITALS: BP 136/66
[2020-09-13] MEDS: MUPIROCIN OINT 2% 22 GM TUBE NS SCH (21:18)
[2020-09-13] MEDS: ATORVASTATIN 40 MG TABLET PO SCH (21:18)
--- NOTE | 2020-09-13 21:45 | NUR ---
MS RN NOTE: PATIENT COMPLETED HD WITH 500ML OUT. HD SITE WITH PRESSURE DRESSING, TO CONTINUE TO MONITOR FOR BLEEDING. PATIENT BLOOD SUGAR LEVEL 228MG/DL, PATIENT TO RECEIVE 4 UNITS OF INSULIN PER SLIDING SCALE AND LANTUS 25 UNITS PER MD ORDER. SNACKS AT BEDSIDE. NOS/S OF HYPER/HYPOGLYCEMIA NOTED. WILL CONTINUE TO MONITOR.
[2020-09-13] MEDS: HYDROCODONE/APAP 5/325MG TABLET PO PRN (22:07)
[2020-09-13] MEDS: INSULIN GLARGINE, 100 UNIT/ML CARTRIDGE SQ SCH (22:10)
[2020-09-13] MEDS: *INSULIN REGULAR(HUMULIN R)HUM 100 UNIT/ML VIAL SQ PRN (22:15)
--- NOTE | 2020-09-14 02:30 | NUR ---
MS RN NOTE: PATIENT NOTED WITH SOME BLEEDING FROM HD SITE. PRESSURE DRESSING APPLIED TO LEFT CHEST WALL/ HD SITE. WILL CONTINUE TO MONITOR.
--- NOTE | 2020-09-14 07:00 | NUR ---
MS RN NOTE: PATIENT RESTING IN BED, NO ACUTE DISTRESS NOTED. BREATHING EVEN AND UNLABORED, NO SOB NOTED. IV TO RAC IN PLACE. HD CATH TO LEFT CHEST IN PLACE, PRESSURE DRESSING CHANGED SINCE SITE BLEEDING AGAIN,. PATIENT BLOOD SUGAR LEVEL 125MG/DL, NO INSULIN NEEDED PER SLIDING SCALE, NO S/S OF HYPER/HYPOGLYCEMIA NOTED. BED LOCKED AND IN LOWEST POSITION, CALL LIGHT IN REACH. WILL ENDORSE TO DAY NURSE TO CONTINUE WITH PLAN OF CARE.
[2020-09-14] MEDS: BLOOD SUGAR DIAGNOSTIC 1 EACH STRIP VI SCH ×4 (07:11→22:33)
--- NOTE | 2020-09-14 07:25 | NUR ---
MS RN NOTES PATIENT RECEIVED IN BED RESTING COMFORTABLY, ALERT AND ORIENTED X 3. PATIENT ON ROOM AIR WITH NO SIGNS OF RESPIRATORY DISTRESS NOTED AT THIS TIME WITH EVEN NON-LABORED BREATHING. PATIENT SKIN WARM AND DRY TO TOUCH AT THIS TIME. IV ACCESS INTACT AND PATENT. PATIENT HD CATHETER INTACT AND DRESSING IN PLACE DUE TO BLEEDING REPORTED FROM NIGHTSHIFT, WILL CONTINUE TO MONITOR DRESSING. PATIENT PRESENTING WITH NO PAIN OR DISCOMFORT AT THIS TIME. SAFETY PRECAUTIONS IMPLEMENTED WITH BED LOCKED, BED ALARM ON, BED IN THE LOWEST POSITION, BILATERAL SIDE RAILS UP, AND CALL LIGHT WITHIN EASY REACH OF THE PATIENT. WILL CONTINUE TO MONITOR PATIENT.
[2020-09-14 08:00] VITALS: BP 115/64
[2020-09-14] MEDS: PANTOPRAZOLE 40 MG TABLET.DR PO SCH (08:58)
[2020-09-14] MEDS: SENNOSIDES 8.6 MG TABLET PO SCH ×2 (08:58→16:56)
[2020-09-14] MEDS: ARIPIPRAZOLE 5 MG TABLET PO SCH (08:58)
[2020-09-14] MEDS: ESCITALOPRAM OXALATE (10 MG) 10 MG TABLET PO SCH (08:58)
[2020-09-14] MEDS: DIVALPROEX SODIUM 250 MG TABLET.DR PO SCH ×2 (08:58→16:56)
[2020-09-14] MEDS: ASCORBIC ACID 500 MG TABLET PO SCH (08:58)
[2020-09-14] MEDS: VIT B CMPLX 3/FA/VIT C/BIOTIN 1 TAB TABLET PO SCH (08:58)
[2020-09-14] MEDS: QUETIAPINE FUMARATE 25 MG TABLET PO SCH ×2 (08:58→21:52)
[2020-09-14] MEDS: CARVEDILOL 6.25 MG TABLET PO SCH ×2 (09:00→21:00)
[2020-09-14] MEDS: MUPIROCIN OINT 2% 22 GM TUBE NS SCH ×2 (09:08→21:48)
[2020-09-14 11:35] LABS: BASOPHILS % (AUTO) 0.6 % (0.0-2.0); EOSINOPHILS % (AUTO) 3.8 % (0.0-6.0); HEMATOCRIT 30 % (39-51); HEMOGLOBIN 9.4 g/dL (13.5-17.5); LYMPHOCYTES # (AUTO) 1.5 /CMM (0.8-4.8); LYMPHOCYTES % (AUTO) 32.6 % (20.0-44.0); MEAN CORPUSCULAR HGB CONC 31 g/dl (31.0-36.0); MEAN CORPUSCULAR VOLUME 106 fL (80-96); MONOCYTES # (AUTO) 0.6 /CMM (0.1-1.30); MONOCYTES % (AUTO) 12.3 % (2.0-12.0); NEUTROPHILS # (AUTO) 2.3 /CMM (1.8-8.9); NEUTROPHILS % (AUTO) 50.7 % (43.0-81.0); RED BLOOD CELL COUNT(AUTO) 2.83 MIL/uL (4.5-6.0); WHITE BLOOD COUNT (AUTO) 4.6 K/uL (4.3-11.0)
[2020-09-14 11:38] LABS: CALCIUM, SERUM 8.1 mg/dL (8.5-10.1); CREATININE 2.9 mg/dL (0.6-1.3); POTASSIUM 3.4 mmol/L (3.5-5.1)
[2020-09-14 12:15] LABS: PLATELET COUNT (AUTO) 47 /CMM (150-450)
[2020-09-14] MEDS: INSULIN REGULAR, HUMAN 100 UNIT/ML 3 ML VIAL SQ PRN ×2 (12:28→17:07)
--- NOTE | 2020-09-14 12:28 | NUR ---
MS RN NOTES INFORMED DR. CHARLES FOR PATIENT'S PLATELET COUNT OF 47, NO NEW ORDERS AT THIS TIME, STATES TO CONTINUE TO MONITOR PATIENT AND CONTINUE TO MONITOR PATIENT'S HD CATHETER SITE FOR BLEEDING.
[2020-09-14 13:09] LABS: EOSINOPHILS % (MANUAL) 4 % (0-4); LYMPHOCYTES % (MANUAL) 34 % (16-48); MONOCYTES % (MANUAL) 3 % (0-11.0); NEUTROPHILS % (MANUAL) 59 (42-76)
[2020-09-14 16:00] VITALS: BP 114/65
--- NOTE | 2020-09-14 18:34 | NUR ---
MS RN NOTES PATIENT IN BED RESTING COMFORTABLY, ALERT AND ORIENTED X 3, MAINLY ENGLISH SPEAKING. PATIENT ON ROOM AIR WITH NO SIGNS OF RESPIRATORY DISTRESS NOTED AT THIS TIME WITH EVEN NON-LABORED BREATHING. PATIENT SKIN KEPT CLEAN, WARM AND DRY TO TOUCH AT THIS TIME. IV ACCESS INTACT AND PATENT. PATIENT HD CATHETER INTACT AND DRESSING IN PLACE DUE TO BLEEDING, PATIENT WILL HAVE HEMODIALYSIS TODAY WILL AWAIT FOR CLERICAL ASSOCIATE. PATIENT PRESENTING WITH NO PAIN OR DISCOMFORT AT THIS TIME. MET ALL OF PATIENT'S NEEDS. SAFETY PRECAUTIONS IMPLEMENTED WITH BED LOCKED, BED ALARM ON, BED IN THE LOWEST POSITION, BILATERAL SIDE RAILS UP, AND CALL LIGHT WITHIN EASY REACH OF THE PATIENT. WILL ENDORSE PLAN OF CARE TO UPCOMING RN.
--- NOTE | 2020-09-14 19:53 | NUR ---
MS RN NOTE: PATIENT RESTING IN BED, NO ACUTE DISTRESS NOTED. BREATHING EVEN AND UNLABORED, NO SOB NOTED. RECEIVED HD CATHETER IN PLACE. NO S/S OF HYPER/HYPOGLYCEMIA NOTED. BED LOCKED AND IN LOWEST POSITION, CALL LIGHT IN REACH. WILL CONTINUE TO MONITOR.
[2020-09-14 20:00] VITALS: BP 123/63
[2020-09-14] MEDS: ATORVASTATIN 40 MG TABLET PO SCH (21:53)
[2020-09-14] MEDS: INSULIN GLARGINE, 100 UNIT/ML CARTRIDGE SQ SCH (21:53)
--- NOTE | 2020-09-14 22:15 | NUR ---
MS RN NOTE: PATIENT COMPLETED HD WITH 600ML OUT. HD SITE WITH PRESSURE DRESSING, TO CONTINUE TO MONITOR FOR BLEEDING.PT. TOLERATE WELL, PATIENT BLOOD SUGAR LEVEL 97MG/DL,PROVIDE SNACKS AT BEDSIDE. NOS/S OF HYPER/HYPOGLYCEMIA NOTED. WILL CONTINUE TO MONITOR.
--- NOTE | 2020-09-14 23:26 | NUR ---
RN NOTES: PT. REFUSED LANTUS UNIT ,PER PT. STATUS MY BLOOD SUGAR IS ONLY 97 MGDL , I DON'T WANT TAKING LANTUS , ENCOURAGED STILL REFUSED PT. RFEUSED COREG 12.5 MR PO , ENCOUREGD X3 PT. STILL REFUSED , WILL CONTINUITY WITH CARE.
[2020-09-15] MEDS: Z GUARD REMEDY 2 OZ OINT TP PRN ×2 (04:06→22:29)
[2020-09-15] MEDS: BLOOD SUGAR DIAGNOSTIC 1 EACH STRIP VI SCH ×4 (06:32→22:03)
--- NOTE | 2020-09-15 06:45 | NUR ---
MS RN NOTE: PATIENT RESTING IN BED, NO ACUTE DISTRESS NOTED. BREATHING EVEN AND UNLABORED, NO SOB NOTED. IV TO RAC IN PLACE. HD CATH TO LEFT CHEST IN PLACE, PRESSURE DRESSING CHANGE, PATIENT BLOOD SUGAR LEVEL 88MG/DL, NO INSULIN NEEDED PER SLIDING SCALE, PROVIDE SNACKS, BED LOCKED AND IN LOWEST POSITION, CALL LIGHT IN REACH. WILL ENDORSE TO DAY NURSE TO CONTINUE WITH PLAN OF CARE.
--- NOTE | 2020-09-15 07:25 | NUR ---
MS RN NOTES PATIENT RECEIVED IN BED RESTING COMFORTABLY, ALERT AND ORIENTED X 3. PATIENT ON ROOM AIR WITH NO SIGNS OF RESPIRATORY DISTRESS NOTED AT THIS TIME WITH EVEN NON-LABORED BREATHING. PATIENT SKIN WARM AND DRY TO TOUCH AT THIS TIME. IV ACCESS INTACT AND PATENT. PATIENT HD CATHETER INTACT AND DRESSING IN PLACE, WILL CONTINUE TO MONITOR DRESSING. NOTED A SCRATCH ON PATIENT FACE. PATIENT PRESENTING WITH NO PAIN OR DISCOMFORT AT THIS TIME. SAFETY PRECAUTIONS IMPLEMENTED WITH BED LOCKED, BED ALARM ON, BED IN THE LOWEST POSITION, BILATERAL SIDE RAILS UP, AND CALL LIGHT WITHIN EASY REACH OF THE PATIENT. WILL CONTINUE TO MONITOR PATIENT.
[2020-09-15 08:00] VITALS: BP 144/72
[2020-09-15] MEDS: ESCITALOPRAM OXALATE (10 MG) 10 MG TABLET PO SCH (08:51)
[2020-09-15] MEDS: PANTOPRAZOLE 40 MG TABLET.DR PO SCH (08:52)
[2020-09-15] MEDS: CARVEDILOL 6.25 MG TABLET PO SCH ×2 (08:52→21:16)
[2020-09-15] MEDS: SENNOSIDES 8.6 MG TABLET PO SCH ×2 (08:52→16:47)
[2020-09-15] MEDS: ARIPIPRAZOLE 5 MG TABLET PO SCH (08:52)
[2020-09-15] MEDS: VIT B CMPLX 3/FA/VIT C/BIOTIN 1 TAB TABLET PO SCH (08:52)
[2020-09-15] MEDS: DIVALPROEX SODIUM 250 MG TABLET.DR PO SCH ×2 (08:52→16:47)
[2020-09-15] MEDS: ASCORBIC ACID 500 MG TABLET PO SCH (08:52)
[2020-09-15] MEDS: QUETIAPINE FUMARATE 25 MG TABLET PO SCH ×2 (08:52→21:14)
[2020-09-15] MEDS: MUPIROCIN OINT 2% 22 GM TUBE NS SCH ×2 (08:53→21:16)
--- NOTE | 2020-09-15 10:00 | NUR ---
MS RN NOTES TOOK PHOTO OF PATIENT'S FACE DUE TO PATIENT SCRATCHING AND BLEEDING. WILL CONTINUE TO MONITOR PATIENT.
[2020-09-15] MEDS: INSULIN REGULAR, HUMAN 100 UNIT/ML 3 ML VIAL SQ PRN (11:45)
[2020-09-15 16:00] VITALS: BP 125/82
--- NOTE | 2020-09-15 16:50 | NUR ---
MS RN NOTES PATIENT'S BLOOD SUGAR 142, INFORMED PATIENT THE NEED FOR INSULIN AND SLIDING SCALE PROTOCOL OF 2 UNITS. PATIENT REFUSED, EDUCATED THE RISKS AND BENEFITS, PATIENT KEPT REFUSING AFTER MULTIPLE ATTEMPTS, WILL CONTINUE TO MONITOR PATIENT.
--- NOTE | 2020-09-15 18:57 | NUR ---
MS RN NOTES PATIENT IN BED RESTING COMFORTABLY, ALERT AND ORIENTED X 3, MAINLY [place]RD[place] SPEAKING. PATIENT ON ROOM AIR WITH NO SIGNS OF RESPIRATORY DISTRESS NOTED AT THIS TIME WITH EVEN NON-LABORED BREATHING. PATIENT SKIN KEPT CLEAN, WARM AND DRY TO TOUCH AT THIS TIME. IV ACCESS INTACT AND PATENT. PATIENT HD CATHETER INTACT AND DRESSING IN PLACE DUE TO BLEEDING. PATIENT PRESENTING WITH NO PAIN OR DISCOMFORT AT THIS TIME. MET ALL OF PATIENT'S NEEDS. SAFETY PRECAUTIONS IMPLEMENTED WITH BED LOCKED, BED ALARM ON, BED IN THE LOWEST POSITION, BILATERAL SIDE RAILS UP, AND CALL LIGHT WITHIN EASY REACH OF THE PATIENT. WILL ENDORSE PLAN OF CARE TO UPCOMING RN.
[2020-09-15 20:00] VITALS: BP 142/76
[2020-09-15] MEDS: ATORVASTATIN 40 MG TABLET PO SCH (21:14)
[2020-09-15] MEDS: INSULIN GLARGINE, 100 UNIT/ML CARTRIDGE SQ SCH (22:06)
--- NOTE | 2020-09-15 23:30 | NUR ---
RN NOTES: PT. REFUSED LABS , ENCOURAGED BUT PT. STRONGLY REFUSED, WILL CONTINUE WITH CARE.
--- NOTE | 2020-09-16 06:48 | NUR ---
MS RN NOTE: PATIENT RESTING IN BED, NO ACUTE DISTRESS NOTED, NO SOB NOTED. IV TO RAC IN PLACE. HD CATH TO LEFT CHEST IN PLACE, BED LOCKED AND IN LOWEST POSITION, CALL LIGHT IN REACH. WILL ENDORSE TO DAY NURSE TO CONTINUE WITH PLAN OF CARE.
--- NOTE | 2020-09-16 07:00 | NUR ---
RN NOTE PT IS ADMITTED DUE TO BLEEDING FROM THEIR DIALYSIS CATHETER. PT HAS A HISTORY OF ESRD, CVA, LEFT SIDED WEAKNESS, CAD, HTN, CHF, DM, AND SCHIZOPHRENIA. NO KNOWN ALLERGIES. PT IS CURRENTLY ON ROOM AIR AND HAS A O2 SAT OF 100%. PT HAS NOT SIGNS OF SOB. PT PULSE IS 78. PT IS INCONTINENT. PT IS CURRENTLY ON BEDREST. PT HAS SACRAL REDNESS PRESENT. PT HAS A SALINE LOCK PRESENT IN THE RIGHT UPPER ARM. PT IS PRESCRIBED RENAL DIET. BED SET IN LOWEST POSITION. BED RAILS RAISED. CALL LIGHT WITHIN REACH. WILL CONTINUE TO MONITOR.
[2020-09-16] MEDS: BLOOD SUGAR DIAGNOSTIC 1 EACH STRIP VI SCH ×4 (07:36→21:30)
[2020-09-16 08:00] VITALS: BP 103/57
[2020-09-16] MEDS: PANTOPRAZOLE 40 MG TABLET.DR PO SCH (08:59)
[2020-09-16] MEDS: ESCITALOPRAM OXALATE (10 MG) 10 MG TABLET PO SCH (09:00)
[2020-09-16] MEDS: QUETIAPINE FUMARATE 25 MG TABLET PO SCH ×2 (09:00→20:59)
[2020-09-16] MEDS: DIVALPROEX SODIUM 250 MG TABLET.DR PO SCH ×2 (09:00→17:22)
[2020-09-16] MEDS: VIT B CMPLX 3/FA/VIT C/BIOTIN 1 TAB TABLET PO SCH (09:00)
[2020-09-16] MEDS: ARIPIPRAZOLE 5 MG TABLET PO SCH (09:00)
[2020-09-16] MEDS: CARVEDILOL 6.25 MG TABLET PO SCH ×2 (09:00→20:59)
[2020-09-16] MEDS: SENNOSIDES 8.6 MG TABLET PO SCH ×2 (09:02→17:22)
[2020-09-16] MEDS: ASCORBIC ACID 500 MG TABLET PO SCH (09:03)
[2020-09-16] MEDS: MUPIROCIN OINT 2% 22 GM TUBE NS SCH ×2 (09:08→21:09)
[2020-09-16] MEDS: INSULIN REGULAR, HUMAN 100 UNIT/ML 3 ML VIAL SQ PRN ×2 (12:19→19:25)
[2020-09-16 16:00] VITALS: BP 109/57
[2020-09-16 18:24] LABS: CALCIUM, SERUM 8.1 mg/dL (8.5-10.1); CREATININE 2.9 mg/dL (0.6-1.3)
--- NOTE | 2020-09-16 18:26 | NUR ---
RN NOTE PT IS A&OX3 AND RESPONDS WELL TO INSTRUCTIONS. PT IS [place] SPEAKING. PT O2 SAT IS 100% ON RA. NO SOB PRESENT. PT HAS 2+ EDEMA ON THE LEFT ARM. PT IS INCONTINENT. PT HAD 1 BM TODAY. PT IS ON BEDREST. PT HAS REDNESS PRESENT IN THE SACRUM. PT IS CURRENTLY ON BED REST. PT HAS A SALINE LOCK IN THE RIGHT UPPER ARM. PT IS AWAKE IN BED. BED IN LOWEST POSITION. BED RAILS RAISED. CALL LIGHT WITHIN REACH. SAFETY MEASURES IMPLEMENTED.
--- NOTE | 2020-09-16 19:00 | NUR ---
RN opening notes Received Pt from morning nurse. Pt is alert and orientedX2. Pt speaks Bulgarian and able to make needs known. Respiration is normal in room air. No SOB. No S/S of distress noted. Noted small blood from dialysis catherer LIJ permacath. Applied gauze and pressure to catherer site. IV site at RAC # 20 is clean, intact and flushes well. Safety precautions is maintained. Bed at low position, brakes locked, side rails upX3 and call light within reach. Will continue to monitor.
[2020-09-16] MEDS: HYDROCODONE/APAP 5/325MG TABLET PO PRN (19:21)
--- NOTE | 2020-09-16 19:26 | NUR ---
RN NOTE PT BLOOD GLUCOSE OF 140. INSULIN NOT ADMINISTER DUE TO PT SKIPPING DINNER.
[2020-09-16 19:39] LABS: BASOPHILS % (AUTO) 0.5 % (0.0-2.0); EOSINOPHILS % (AUTO) 3.5 % (0.0-6.0); HEMATOCRIT 27 % (39-51); HEMOGLOBIN 9.1 g/dL (13.5-17.5); LYMPHOCYTES # (AUTO) 1.8 /CMM (0.8-4.8); LYMPHOCYTES % (AUTO) 32.1 % (20.0-44.0); MEAN CORPUSCULAR HGB CONC 33 g/dl (31.0-36.0); MEAN CORPUSCULAR VOLUME 99 fL (80-96); MONOCYTES # (AUTO) 0.6 /CMM (0.1-1.30); MONOCYTES % (AUTO) 11.1 % (2.0-12.0); NEUTROPHILS # (AUTO) 2.9 /CMM (1.8-8.9); NEUTROPHILS % (AUTO) 52.8 % (43.0-81.0); RED BLOOD CELL COUNT(AUTO) 2.75 MIL/uL (4.5-6.0); WHITE BLOOD COUNT (AUTO) 5.6 K/uL (4.3-11.0)
[2020-09-16 20:00] VITALS: BP 123/74
[2020-09-16 20:05] LABS: PLATELET COUNT (AUTO) 48 /CMM (150-450)
--- NOTE | 2020-09-16 20:06 | NUR ---
RN notes Received a phone call from lab that Pt's Plt is 48. charge nurse is aware and informed. Will continue to monitor.
[2020-09-16] MEDS: ATORVASTATIN 40 MG TABLET PO SCH (21:08)
[2020-09-16] MEDS: INSULIN GLARGINE, 100 UNIT/ML CARTRIDGE SQ SCH (21:32)
[2020-09-16] MEDS: *INSULIN REGULAR(HUMULIN R)HUM 100 UNIT/ML VIAL SQ PRN (21:33)
--- NOTE | 2020-09-16 21:34 | NUR ---
RN notes Pt blood sugar HS is 118. Held lantus and regular insulin per level ordered. Will continue to monitor.
[2020-09-16 23:30] LABS: EOSINOPHILS % (MANUAL) 2 % (0-4); LYMPHOCYTES % (MANUAL) 26 % (16-48); MONOCYTES % (MANUAL) 9 % (0-11.0); NEUTROPHILS % (MANUAL) 63 (42-76)
--- NOTE | 2020-09-17 06:50 | NUR ---
RN closing notes Pt is resting in bed comfortably. Pt is alert and orientedX1-2. Pt speaks Maori and able to make needs known. Respiration is normal in room air. No SOB. No S/S of distress noted. VS is stable. Afebrile. Routine meds were given as ordered. LIJ permacath applied gauze and pressure to catherer site. IV site at RAC # 20 is clean, intact and flushes well. Safety precautions is maintained. Bed at low position, brakes locked, side rails upX3 and call light within reach. Will endorse to morning nurse for JOE.
[2020-09-17] MEDS: BLOOD SUGAR DIAGNOSTIC 1 EACH STRIP VI SCH (07:02)
[2020-09-17] MEDS: INSULIN REGULAR, HUMAN 100 UNIT/ML 3 ML VIAL SQ PRN (07:04)
--- NOTE | 2020-09-17 07:54 | NUR ---
RN MS NOTE PATIENT IN BED RESTING COMFORTABLY. PATIENT IS IN NO ACUTE DISTRESS. NO SOB NOTED. PATIENTS BREATHING IS EVEN AND UNLABORED. PATIENT DIALYSIS CATHETER SITE NO S/S OF BLEEDING NOTED. PATIENT BED ALARM IS ON. SAFETY PRECAUTIONS IN PLACE. PATIENT BED IS LOCKED AND IN LOWEST POSITION. CALL LIGHT WITHIN REACH. WILL CONTINUE TO MONITOR.
[2020-09-17 08:26] LABS: BASOPHILS % (AUTO) 0.2 % (0.0-2.0); EOSINOPHILS % (AUTO) 0.1 % (0.0-6.0); HEMATOCRIT 24 % (39-51); HEMOGLOBIN 8.2 g/dL (13.5-17.5); LYMPHOCYTES # (AUTO) 0.7 /CMM (0.8-4.8); LYMPHOCYTES % (AUTO) 5.7 % (20.0-44.0); MEAN CORPUSCULAR HGB CONC 34 g/dl (31.0-36.0); MEAN CORPUSCULAR VOLUME 99 fL (80-96); MONOCYTES # (AUTO) 0.9 /CMM (0.1-1.30); MONOCYTES % (AUTO) 6.8 % (2.0-12.0); NEUTROPHILS % (AUTO) 87.2 % (43.0-81.0); RED BLOOD CELL COUNT(AUTO) 2.46 MIL/uL (4.5-6.0); WHITE BLOOD COUNT (AUTO) 12.6 K/uL (4.3-11.0)
[2020-09-17 08:30] LABS: PLATELET COUNT (AUTO) 42 /CMM (150-450)
[2020-09-17] MEDS: PANTOPRAZOLE 40 MG TABLET.DR PO SCH (08:38)
[2020-09-17] MEDS: ASCORBIC ACID 500 MG TABLET PO SCH (08:38)
[2020-09-17] MEDS: QUETIAPINE FUMARATE 25 MG TABLET PO SCH (08:39)
[2020-09-17] MEDS: ESCITALOPRAM OXALATE (10 MG) 10 MG TABLET PO SCH (08:39)
[2020-09-17] MEDS: ARIPIPRAZOLE 5 MG TABLET PO SCH (08:39)
[2020-09-17] MEDS: SENNOSIDES 8.6 MG TABLET PO SCH (08:39)
[2020-09-17] MEDS: DIVALPROEX SODIUM 250 MG TABLET.DR PO SCH (08:39)
[2020-09-17 08:40] VITALS: BP 107/53
[2020-09-17] MEDS: CARVEDILOL 6.25 MG TABLET PO SCH (08:40)
[2020-09-17] MEDS: MUPIROCIN OINT 2% 22 GM TUBE NS SCH (08:40)
[2020-09-17] MEDS: VIT B CMPLX 3/FA/VIT C/BIOTIN 1 TAB TABLET PO SCH (08:45)
[2020-09-17 09:30] LABS: ALBUMIN 2.7 g/dL (3.4-5.0); BILIRUBIN,TOTAL 0.8 mg/dL (0.2-1.0); CALCIUM, SERUM 8.4 mg/dL (8.5-10.1); CREATININE 2.8 mg/dL (0.6-1.3); POTASSIUM 4.1 mmol/L (3.5-5.1); TOTAL PROTEIN, SERUM 6.8 g/dL (6.4-8.2)
--- NOTE | 2020-09-17 11:40 | NUR ---
MS WASHING TUB OPERATOR NOTE PATIENT IS IN NO ACUTE DISTRESS. NO SOB NOTED. BREATHING IS EVEN AND UNLABORED. PATIENTS DIALYSIS CATHETER SITE NO S/S OF BLEEDING. DC INSTRUCTIONS PROVIDED. PATIENT VERBALIZED UNDERSTANDING. PATIENT UNABLE TO SIGN DUE TO HAND WEAKNESS. TWO NURSES SIGNED. PATIENTS BELONGINGS WERE CHECKED AND VERIFIED. SKIN ASSESSED, NO NEW SKIN BREAKDOWN NOTED. ID BAND REMOVED. IV REMOVED. REPORT GIVEN TO [facility]. REPORT GIVEN TO 2 TRANSFER MACHINE OPERATOR. PATIENT TRAVELING BY AMBULANCE TO SNF. MD AWARE OF DISCHARGE.
[2020-09-17 17:13] LABS: LYMPHOCYTES % (MANUAL) 5 % (16-48); MONOCYTES % (MANUAL) 4 % (0-11.0); NEUTROPHILS % (MANUAL) 91 (42-76)
== END 2020-09-17 11:45 | DRG 314 ==
LOC: ER 22:01 → TELE 09-11 00:34 → MED 09-11 00:59
PROVIDERS: ADMIT Internal Medicine; ATTEND Family Medicine
PROC: 5A1D70Z Performance of Urinary Filtration, Intermittent, Less than 6 Hours Per Day (ICD-10-PCS; principal; 2020-09-13)
DX: T82.838A Hemorrhage due to vascular prosthetic devices, implants and grafts, initial encounter (principal); N18.6 End stage renal disease; I50.23 Acute on chronic systolic (congestive) heart failure; I12.0 Hypertensive chronic kidney disease with stage 5 chronic kidney disease or end stage renal disease; E44.1 Mild protein-calorie malnutrition; I13.2 Hypertensive heart and chronic kidney disease with heart failure and with stage 5 chronic kidney disease, or end stage renal disease; I69.354 Hemiplegia and hemiparesis following cerebral infarction affecting left non-dominant side; D68.69 Other thrombophilia; Z99.2 Dependence on renal dialysis; D63.1 Anemia in chronic kidney disease; E11.22 Type 2 diabetes mellitus with diabetic chronic kidney disease; E78.5 Hyperlipidemia, unspecified; E87.6 Hypokalemia; F20.9 Schizophrenia, unspecified; G30.9 Alzheimer's disease, unspecified; I25.10 Atherosclerotic heart disease of native coronary artery without angina pectoris; G40.909 Epilepsy, unspecified, not intractable, without status epilepticus; F02.80 Dementia in other diseases classified elsewhere, unspecified severity, without behavioral disturbance, psychotic disturbance, mood disturbance, and anxiety; Z79.4 Long term (current) use of insulin; E88.09 Other disorders of plasma-protein metabolism, not elsewhere classified; R26.89 Other abnormalities of gait and mobility; D69.59 Other secondary thrombocytopenia; Y84.8 Other medical procedures as the cause of abnormal reaction of the patient, or of later complication, without mention of misadventure at the time of the procedure; Z68.20 Body mass index [BMI] 20.0-20.9, adult; Y92.129 Unspecified place in nursing home as the place of occurrence of the external cause
CPT/HCPCS: 36415; 80048-TC; 80053-TC; 82962-TC; 83735-TC; 84100-TC; 85025-TC; 85610-TC; 85730-TC; 87081-TC; 90935-TC; A6253; A6403; C9803; G0378; J1815